=== PATIENT | male | born 1975 | race Two or more races ===

== ENCOUNTER 2019-11-04 19:08 | Inpatient (IN) | payer MEDICAID, OTHER ==
[~2019-11-04] VITALS: Ht 175.3 cm; Wt 143.0 kg
[2019-11-04 19:55] LABS: Alanine Aminotransferase 127 U/L (16-61); Anion Gap 3 (5-15); Aspartate Aminotransferase 64 U/L (15-37); BUN/Creatinine Ratio 9.3; Blood Urea Nitrogen 7 mg/dL (7-18); Calcium 7.8 mg/dL (8.5-10.1); Carbon Dioxide 33 mmol/L (21-32); Chloride 99 mmol/L (98-107); GFR African American 146 mL/min; GFR Non-African American 121 mL/min; Glucose 127 mg/dL (74-106); Potassium 4.2 mmol/L (3.5-5.1); Sodium 135 mmol/L (136-145)
[2019-11-04 20:00] LABS: Alkaline Phosphatase 83 U/L (45-117); Bilirubin, Total 0.5 mg/dL (0.2-1.0); Total Protein 7.2 g/dL (6.4-8.2)
[2019-11-04] MEDS ORDERED: IPRATROPIUM BROM 0.5 MG/2.5ML INH SOL NEB ONE (20:15)
[2019-11-04] MEDS ORDERED: ALBUTEROL SULF 2.5 MG/0.5ML(0.5%) NEB SOLN NEB ONE (20:15)
[2019-11-04 20:16] LABS: Basophils # (auto) 0.1 10 ^3/uL (0-0.2); Eosinophils # (auto) 0.1 10 ^3/uL (0-0.8); Lymphocytes # (auto) 1.5 10 ^3/uL (0.4-5.4); Mean Corpuscular Volume 86.3 fL (80.0-100.0); Monocytes # (auto) 1.2 10 ^3/uL (0-1.3)
[2019-11-04 20:18] LABS: Basophils % (auto) 0.6 % (0.0-2.0); Hematocrit 53.6 % (41.0-53.0); Hemoglobin 16.9 g/dL (13.5-17.5); Lymphocytes % (auto) 11.2 % (10.0-50.0); Mean Corpuscular Hemoglobin 27.2 pg (28.0-32.0); Mean Corpuscular Hgb Conc. 31.5 g/dL (32.0-36.0); Monocytes % (auto) 9.2 % (0.0-12.0); Neutrophils # (auto) 10.2 10 ^3/uL (1.6-8.6); Nucleated Red Blood Cells % 1.2 %; Platelet Count (auto) 229 10^3/uL (140-450); Red Blood Cells 6.21 10^6/uL (4.5-5.90); Red Cell Distribution Width 17.7 % (11.8-14.3); White Blood Cell 13.1 10^3/uL (4.4-10.8)
[2019-11-04] MEDS ORDERED: IPRATROPIUM BROM 0.5 MG/2.5ML INH SOL ONE (20:30)
[2019-11-04] MEDS ORDERED: ALBUTEROL SULF 2.5 MG/0.5ML(0.5%) NEB SOLN ONE (20:30)
[2019-11-04] MEDS ORDERED: cefTRIAXone 1GM/50ML D5W 50 ML IV ONE (21:30)
[2019-11-04] MEDS ORDERED: FUROSEMIDE 40 MG/4 ML VIAL IV ONE (21:45)
[2019-11-04] MEDS ORDERED: LORazepam 0.5 MG TAB PO PRN (22:45)
[2019-11-04] MEDS ORDERED: ACETAMINOPHEN 325 MG TAB PO PRN (22:45)
[2019-11-04] MEDS ORDERED: ACETAMINOPHEN 500 MG TAB PO PRN (22:45)
[2019-11-04] MEDS ORDERED: ONDANSETRON HCL 4 MG/2 ML VIAL IV PRN (22:45)
[2019-11-04] MEDS ORDERED: DOCUSATE SOD 100 MG CAP PO PRN (22:45)
[2019-11-04] MEDS ORDERED: TEMAZEPAM 15 MG CAP PO PRN (22:45)
[2019-11-04] MEDS ORDERED: ETOMIDATE (2MG/ML) 20ML VIAL IV ONE (23:47)
[2019-11-04] MEDS ORDERED: SUCCINYLCHOLINE CHLORIDE 20 MG/ML 10ML VIAL IV ONE (23:47)
[2019-11-05] VITALS (79 sets, daily range): BP systolic 105–147; BP diastolic 65–96
[2019-11-05] MEDS ORDERED: SUCCINYLCHOLINE CHLORIDE 20 MG/ML 10ML VIAL IV ONE (00:01)
[2019-11-05] MEDS ORDERED: MIDAZOLAM DRIP 50 mg/50mL 50 ML IV ONE (00:05)
[2019-11-05] MEDS ORDERED: PROPOFOL 100 ML IV ONE (00:14)
[2019-11-05] MEDS: MIDAZOLAM DRIP 50 mg/50mL 50 ML IV SCH ×6 (00:15→21:00)
[2019-11-05] MEDS: PROPOFOL 100 ML IV SCH ×6 (00:24→23:50)
[2019-11-05] MEDS: NOREPINEPHRINE 8 MG/250ML KIT 250 ML IV SCH ×2 (00:25→07:52)
[2019-11-05] MEDS ORDERED: ETOMIDATE (2MG/ML) 20ML VIAL IV ONE (00:30)
[2019-11-05] MEDS ORDERED: NOREPINEPHRINE 8 MG/250ML KIT 250 ML IV ONE (00:34)
[2019-11-05 03:06] LABS: Urine Bacteria NONE SEEN /hpf (None Seen); Urine Blood TRACE /uL (Negative); Urine Hyaline Cast MOD /lpf (0 - 2); Urine Mucus FEW (None Seen); Urine Specific Gravity 1.009 (1.001-1.035); Urine WBC 6 /hpf (0 - 3)
--- NOTE | 2019-11-05 03:20 | NUR ---
RECEIVED THIS PATIENT INTO ROOM 101 FROM ER. ETT TO VENTILATOR. PLACED IN COVID ISOLATION A RULE OUT. STREP WAS RULED IN. INFLUENZA NEGATIVE. OGT PLACED TO LIS. 400CC OF [place] GREEN LIQUID IN CONTAINER. BLOODY ORAL SECRETIONS. RECTAL TEMP PROBE PLACED. TEMPERATURE IMMEDIATELY WAS 100.8. SBP BEING SUPPORTED WITH LEVOPHED. SEDATION: VERSED AND PROPOFOL. PUPILS PINPOINT AND NR. LUNGS CLEAR BILATERALLY. ABDOMEN ROUND AND SOFT. GABRIEL IN PLACE AND EMPTIED 1150 CC PF HAZY URINE. NO BM. FACE AND CHEST HOT RED COLOR. LEFT BUTTOCK AND CREST ARE RED. NO WOUNDS NOTED. PROPHYLACTIC OPTIFOAM TO COCCYX. HAS 2 PERIPHERAL IVS. ONE IS 20 G IN THE RAC AND THERE IS A 18 G IN THE LEFT FOREARM. LEVOPHED IS RUNNING IN THE RIGHT IV.
--- NOTE | 2019-11-05 04:00 | NUR ---
LAB HERE TO DRAW BLOOD FOR AM [facility]
[2019-11-05 04:37] LABS: Basophils # (auto) 0.1 10 ^3/uL (0-0.2); Eosinophils # (auto) 0.1 10 ^3/uL (0-0.8); Hemoglobin 16.5 g/dL (13.5-17.5); Mean Corpuscular Hemoglobin 27.2 pg (28.0-32.0); Mean Corpuscular Hgb Conc. 31.6 g/dL (32.0-36.0); Monocytes # (auto) 1.3 10 ^3/uL (0-1.3); White Blood Cell 12.6 10^3/uL (4.4-10.8)
[2019-11-05 04:39] LABS: Eosinophils % (auto) 1.1 % (0.0-7.0); Hematocrit 52.3 % (41.0-53.0); Lymphocytes # (auto) 1.4 10 ^3/uL (0.4-5.4); Lymphocytes % (auto) 11.3 % (10.0-50.0); Mean Corpuscular Volume 86.1 fL (80.0-100.0); Monocytes % (auto) 10.6 % (0.0-12.0); Neutrophils # (auto) 9.6 10 ^3/uL (1.6-8.6); Nucleated Red Blood Cells % 0.7 %; Platelet Count (auto) 226 10^3/uL (140-450); Red Blood Cells 6.07 10^6/uL (4.5-5.90); Red Cell Distribution Width 17.3 % (11.8-14.3)
[2019-11-05 04:47] LABS: Albumin 2.7 g/dL (3.4-5.0); Potassium 3.9 mmol/L (3.5-5.1)
[2019-11-05 04:51] LABS: BUN/Creatinine Ratio 9.9; Calcium 7.9 mg/dL (8.5-10.1)
[2019-11-05 04:53] LABS: Bilirubin, Total 0.6 mg/dL (0.2-1.0); Total Protein 6.7 g/dL (6.4-8.2)
[2019-11-05] MEDS: ALBUTEROL SULF 2.5 MG/0.5ML(0.5%) NEB SOLN NEB SCH ×3 (05:48→22:10)
[2019-11-05] MEDS: ACETAMINOPHEN 650 mg PER 20 mL UD GT PRN (05:54)
[2019-11-05] MEDS ORDERED: ALBUTEROL SULF HFA 90MCG INH 200DOSE IN SCH (06:00)
--- NOTE | 2019-11-05 06:06 | NUR ---
TEMP 101.5. TYLENOL GIVEN. 5 ICE BAGS, BACK OF NECK, AXILLA, AND GROIN.. O2 SAT DECREASED TO 88%. FIO2 INCREASED TO 40%
--- NOTE | 2019-11-05 06:27 | NUR ---
SPOKE TO THE SISTER. HE TAKES NO MEDICATIONS. HAS DRUG ABUSE WITH METH AND MARIJUANA. DOES DRINK. DID COME IN CONTACT WITH SOMEONE WITH COVID. HAS A LIVING FATHER BUT HE IS IN THE HOSPITAL. STATED THAT HE HAS NOT SEEN A DOCTOR IN YEARS.
--- NOTE | 2019-11-05 07:21 | NUR ---
REPORT RECEIVED FROM PSYCHOLOGIST SOCIAL RN
--- NOTE | 2019-11-05 08:01 | NUR ---
ELEVATED TEMPERATURE COOLING MEASURES IN PLACE
--- NOTE | 2019-11-05 09:00 | NUR ---
SEDATION VACATION HELD AT THIS TIME Addendum: 11/05/19 at 0914 by Jorden Tucker RN Amended: Links added.
--- NOTE | 2019-11-05 09:41 | NUR ---
OGT ADVANCED 8 CM
[2019-11-05] MEDS: ASCORBIC ACID 1,000 MG TAB PO SCH (09:47)
[2019-11-05] MEDS: ZINC SULFATE 220mg CAP or TAB PO SCH (09:47)
[2019-11-05] MEDS: CHOLECALCIFEROL (VITD3) 1,000UNIT=25mCg TAB PO SCH (09:47)
[2019-11-05] MEDS: ENOXAPARIN SOD 40 MG/0.4 ML SYRINGE SC SCH (09:48)
[2019-11-05] MEDS ORDERED: DOXYCYCLINE 100 MG TAB/CAP PO SCH ×2 (10:00→11:15)
[2019-11-05] MEDS ORDERED: DOXYCYCLINE 100MG/250ML 250 ML IV SCH (10:00)
--- NOTE | 2019-11-05 10:28 | NUR ---
DR. CROWDER PAGED AWAITING CALLBACK
[2019-11-05] MEDS ORDERED: VANCOMYCIN 1GM/250ML 250 ML IV ONE (11:30)
[2019-11-05] MEDS: PIPERACILLIN-TAZO 4.5GM 100 ML IV SCH ×2 (13:45→22:13)
[2019-11-05] MEDS ORDERED: SODIUM CHLORIDE 0.9% 1,000 ML IV SCH (14:30)
--- NOTE | 2019-11-05 16:00 | NUR ---
PEEP INCREASED TO [address] ROJAS.
[2019-11-05] MEDS ORDERED: FUROSEMIDE 40 MG/4 ML VIAL ONE (16:05)
--- NOTE | 2019-11-05 16:14 | NUR ---
LASIX GIVEN ORDERED
[2019-11-05] MEDS ORDERED: FUROSEMIDE 40 MG/4 ML VIAL IV ONE (16:15)
[2019-11-05] MEDS ORDERED: VANCOMYCIN PER PHARMACY 0 MG IV SCH (16:45)
[2019-11-05] MEDS ORDERED: FUROSEMIDE 20 MG/2 ML VIAL IV ONE (16:45)
--- NOTE | 2019-11-05 17:46 | NUR ---
ULTRASOUND AT BEDSIDE
[2019-11-05] MEDS: VANCOMYCIN 1GM/250ML 250 ML IV SCH (17:52)
[2019-11-05] MEDS: IPRATROPIUM BROM 0.5 MG/2.5ML INH SOL NEB SCH ×2 (18:12→22:10)
--- NOTE | 2019-11-05 20:00 | NUR ---
MD DIAGNOSIS: COPD EXACERBATION. MRSA +. STREP+. COVID NEGATIVE. NO ISOLATION. FEBRILE. FAN ON. SISTER CALLS. + GAG AND COUGH. NOTHING SUCTIONED FROM THE ETT. LARGE AMOUNT OF ORAL SECRETIONS. NGT OUTPUT IS [place] GREEN. LEVEL IS AT 100 ON THE CANNISTER. LUNGS CLEAR. LEFT LOWER LUNG DIMINISHED. ABDOMEN ROUND, LARGE, OBESE, AND SOFT. GABRIEL IN PLACE DRAINING CLEAR YELLOW LIQUID TO DOWN DRAIN BAG. HAS 3 PERIPHERAL IVS. NEW LIJ TLC PLACED TODAY. SEDATION: PROPOFOL AND VERSED. LEVOPHED OFF ON DAYSHIFT. SBP SUSTAINING. OGT TO LIS. ORAL CARE. PATIENT REPOSITIONED TO HIS LEFT SIDE.
[2019-11-05] MEDS ORDERED: ATORVASTATIN 20 MG TAB PO SCH (22:00)
--- NOTE | 2019-11-05 22:00 | NUR ---
NOTHING SUCTIONED FROM THE ETT. LARGE AMOUNT OF ORAL SECRETIONS. CONTINUOUS GOLD COLOR LIQUID FROM THE NGT. ALL PULSES PALPABLE. 1+ GENERALIZED EDEMA. NSR WITHOUT ECTOPY. LUNGS CLEAR. USING THE [facility] TLC FOR DIPRIVAN AND VERSED. TEMP 100.2
[2019-11-05] MEDS: MUPIROCIN 2% OINT 15gm or 22gm EACHNOSTRI SCH (22:12)
[2019-11-05] MEDS: CARVEDILOL 3.125 MG TAB PO SCH (22:15)
[2019-11-06] VITALS (100 sets, daily range): BP systolic 95–149; BP diastolic 55–104
--- NOTE | 2019-11-06 | NUR ---
TEMP IS NORMAL. SBP REMAINS GOOD OFF LEVOPHED AND WITH THE COREG DOSE. LUNGS CLEAR. ETT TO VENTILATOR. NGT OUTPUT DECREASING, COLOR REMAINS GOLD. NSR WITHOUT ECTOPY.
[2019-11-06] MEDS: VANCOMYCIN 1GM/250ML 250 ML IV SCH ×4 (00:04→18:38)
[2019-11-06] MEDS: MIDAZOLAM DRIP 50 mg/50mL 50 ML IV SCH ×5 (01:49→19:40)
--- NOTE | 2019-11-06 02:00 | NUR ---
NO CHANGE IN ASSESSMENT. CONTINUING TO GET LARGE AMOUNT OF ORAL SECRETIONS. NGT IS DRAINING ABOUT 200CC/H.
[2019-11-06] MEDS: IPRATROPIUM BROM 0.5 MG/2.5ML INH SOL NEB SCH ×6 (02:10→22:09)
--- NOTE | 2019-11-06 03:05 | NUR ---
UNABLE TO DO CT OF CHEST DUE TO THE PARAMETERS CT DEPARTMENT GAVE ME SO THAT HE CAN FIT IN THE SCANNER WEIGHT LIMIT IS 350 LBS. PT IS 349.8 LBS
--- NOTE | 2019-11-06 04:00 | NUR ---
PROPOFOL TUBING CHANGE. CHG BATH. HE WOKE UP , TRIED TO SIT UP, MOVING ALL EXTREMITIES IN AN ANXIOUS MANNER. INCREASED THE VERSED AND PROPOFOL. HE THEN CALMED DOWN. PARTIAL LINEN CHANGE.
[2019-11-06 04:47] LABS: Basophils # (auto) 0.1 10 ^3/uL (0-0.2); Basophils % (auto) 0.7 % (0.0-2.0); Eosinophils # (auto) 0.1 10 ^3/uL (0-0.8); Eosinophils % (auto) 1.2 % (0.0-7.0); Hematocrit 53.2 % (41.0-53.0); Hemoglobin 17.2 g/dL (13.5-17.5); Lymphocytes # (auto) 1.3 10 ^3/uL (0.4-5.4); Lymphocytes % (auto) 12.1 % (10.0-50.0); Mean Corpuscular Hemoglobin 27.2 pg (28.0-32.0); Mean Corpuscular Hgb Conc. 32.4 g/dL (32.0-36.0); Monocytes % (auto) 9.3 % (0.0-12.0); Neutrophils # (auto) 8.6 10 ^3/uL (1.6-8.6); Neutrophils % (auto) 76.7 % (37.0-80.0); Nucleated Red Blood Cells % 0.8 %; Platelet Count (auto) 191 10^3/uL (140-450); Red Blood Cells 6.33 10^6/uL (4.5-5.90); Red Cell Distribution Width 17.4 % (11.8-14.3); White Blood Cell 11.2 10^3/uL (4.4-10.8)
[2019-11-06 05:00] LABS: INR 1.09 (0.9-1.15); Partial Thromboplastin Time 25.1 sec (23.64-32.05)
[2019-11-06 05:07] LABS: Magnesium 2.1 mg/dL (1.6-2.6)
[2019-11-06 05:15] LABS: Cholesterol 153 mg/dL (< 200); HDL Cholesterol 31 mg/dL (40-59); LDL Cholesterol 95 mg/dL (< 100); Phosphorus 4.2 mg/dL (2.5-4.90); Triglycerides 330 mg/dL (< 150); Uric Acid 5.7 mg/dL (3.5-7.2)
[2019-11-06] MEDS: FUROSEMIDE 20 MG/2 ML VIAL IV SCH ×2 (05:25→18:38)
[2019-11-06] MEDS: PROPOFOL 100 ML IV SCH ×7 (05:30→22:30)
[2019-11-06] MEDS: ALBUTEROL SULF 2.5 MG/0.5ML(0.5%) NEB SOLN NEB SCH ×3 (05:58→22:09)
--- NOTE | 2019-11-06 06:00 | NUR ---
VSS. QUIETLY SEDATED. LUNGS CLEAR. SUCTIONED A SMALL AMOUNT OF WHITE SECRETIONS. LOTS OF ORAL SECRETIONS. RT IN ROOM. FIO2 DECREASED TO 75%
[2019-11-06] MEDS: PIPERACILLIN-TAZO 4.5GM 100 ML IV SCH ×3 (06:26→21:57)
--- NOTE | 2019-11-06 07:00 | NUR ---
REPORT RECEIVED FROM PAPER WOOD CUTTER NURSE. PATIENT RESTING IN BED INTUBATED AND SEDATED. RESPIRATIONS EVEN AND UNLABORED. NO SIGNS OF ACUTE DISTRESS NOTED. BED IN LOW POSITION. WILL CONTINUE TO MONITOR.
[2019-11-06 08:30] LABS: Albumin 2.6 g/dL (3.4-5.0); Calcium 8.4 mg/dL (8.5-10.1); Potassium 3.1 mmol/L (3.5-5.1)
[2019-11-06 08:32] LABS: BUN/Creatinine Ratio 16.3; Bilirubin, Total 0.7 mg/dL (0.2-1.0); Total Protein 6.9 g/dL (6.4-8.2)
[2019-11-06] MEDS: CARVEDILOL 3.125 MG TAB PO SCH (10:00)
[2019-11-06] MEDS: CHOLECALCIFEROL (VITD3) 1,000UNIT=25mCg TAB PO SCH (10:00)
[2019-11-06] MEDS ORDERED: ASPirin 81 mg TAB PO SCH (10:00)
[2019-11-06] MEDS: ASCORBIC ACID 1,000 MG TAB PO SCH (10:00)
[2019-11-06] MEDS: ZINC SULFATE 220mg CAP or TAB PO SCH (10:00)
[2019-11-06] MEDS ORDERED: LISINOPRIL 5 MG TAB PO SCH (10:00)
[2019-11-06] MEDS: ENOXAPARIN SOD 40 MG/0.4 ML SYRINGE SC SCH (10:35)
[2019-11-06] MEDS: MUPIROCIN 2% OINT 15gm or 22gm EACHNOSTRI SCH ×2 (10:35→21:58)
--- NOTE | 2019-11-06 12:22 | NUR ---
DR ROJAS AT BEDSIDE TO ASSESS PATIENT AND DISCUSS PLAN OF CARE. MD MADE AWARE THAT PATIENT POTASSIUM 3.1. PER MD ADMINISTER 80MEQ OF POTASSIUM IVPB. ALL ORDERS NOTED IN CHART. MD AWARE PATIENT HAS NOT GONE TO CT DUE TO HIGH FIO2 AND PEEP. ALL ORDERS NOTED IN CHART.
[2019-11-06] MEDS ORDERED: FUROSEMIDE 40 MG/4 ML VIAL IV ONE (12:30)
[2019-11-06] MEDS: POTASSIUM CHL 20MEQ/100ML 100 ML IV SCH ×4 (12:43→18:38)
--- NOTE | 2019-11-06 14:42 | NUR ---
CONSENT OBTAINED FOR CTA FROM PATIENTS SISTER MOISES VIA TELEPHONE WITH DOUBLE NURSE CONSENT.
--- NOTE | 2019-11-06 15:45 | NUR ---
DR Luana CANALES AT BEDSIDE TO ASSESS PATIENT AND DISCUSS PLAN OF CARE. ALL ORDERS NOTED IN CHART. MD MADE AWARE THAT ALL PO MEDICATIONS WERE HELD THIS MORNING DUE TO HIGH OUTPUT FROM NGT. PER MD DC ALL PO MEDICATIONS AT THIS TIME.
--- NOTE | 2019-11-06 19:12 | NUR ---
Respiratory note: AT BEDSIDE TITRATED FIO2 STEADILY TO 60% PT TOLERATING WELL. POX 98-100%. WILL CONTINUE TO TITRATE TOLERATED. COMMUNICATED O2 CHANGES TO ROSE MCARTHUR.
[2019-11-06] MEDS ORDERED: FUROSEMIDE 20 MG/2 ML VIAL IV SCH (19:15)
--- NOTE | 2019-11-06 19:59 | NUR ---
Respiratory note: At bedside for routine vent check. Fio2 titrated to 55%. Pt tolerating change well. Communicated to RN Lizbeth of o2 change. Pts current temp reads 99.5f. Will continue to monitor.
--- NOTE | 2019-11-06 20:00 | NUR ---
ADMITTED WITH COPD EXACERBATION. SEDATION: VERSED, PROPOFOL. LIJ TLC SHOWS NO REDNESS, SWELLING OR DRNG. PUPILS PINPOINT. CTA CONSENT DONE. PATIENT BECOMES UNSTABLE WHEN TURNED. HE IS 349 LBS AND LARGER THAN THE ALOTTED SIZE FOR THE CT BED. ETT TO VENTILATOR. OGT TO LIS DRAINING A GOLD/BILE COLOR LIQUID. ANTIBIOTICS: ZOSYN AND VANCOMYCIN. +MRSA BEING TREATED WITH BACTROBAN (NARES). GABRIEL IN PLACE DRAINING A GOOD AMOUNT OF CLEAR YELLOW LIQUID TO DOWN DRAIN BAG. NO FEVER RIGHT NOW. LARGE AMOUNT OF ORAL SECRETIONS. ORAL CARE DONE.
--- NOTE | 2019-11-06 21:59 | NUR ---
Respiratory note: AT BEDSIDE FOR ROUTINE VENT CHECK. CURRENT TEMP IS 99.0F. BS ARE FINE COURSE SXD VIA ETT FOR SCANT STONE. RN URBAN AT BEDSIDE.
--- NOTE | 2019-11-06 22:00 | NUR ---
REPOSITIONED TO RIGHT SIDE WITHOUT CHANGE IN VITAL SIGNS. ORAL CARE DONE. LARGE AMOUNT OF ORAL SECRETIONS. NOTHING SUCTIONED FROM THE ETT. VSS. GOOD URINE OUTPUT. NO FEVER. QUIETLY RESTING. + COUGH AND GAG.
[2019-11-06] MEDS: ACETYLCYSTEINE 20%(200MG/ML) SOL 4ML NEB SCH (22:09)
[2019-11-07] VITALS (105 sets, daily range): BP systolic 98–141; BP diastolic 51–100
--- NOTE | 2019-11-07 | NUR ---
PLACED ON BACK. COPIOUS ORAL SECRETIONS. SMALL AMOUNT OF CREAMY FROM THE LUNGS. TOLERATED TURNING. NSR WITHOUT ECTOPY.
--- NOTE | 2019-11-07 00:08 | NUR ---
Respiratory note: AT BEDSIDE FOR ROUTINE VENT CHECK. CURRENT TEMP IS 98.8F. NO CHANGES MADE WILL CONTINUE TO BEDSIDE.
[2019-11-07] MEDS: VANCOMYCIN 1GM/250ML 250 ML IV SCH ×4 (00:23→18:10)
[2019-11-07] MEDS: NOREPINEPHRINE 8 MG/250ML KIT 250 ML IV SCH (00:24)
[2019-11-07] MEDS: PROPOFOL 100 ML IV SCH ×6 (00:24→19:52)
[2019-11-07] MEDS: MIDAZOLAM DRIP 50 mg/50mL 50 ML IV SCH ×2 (00:25→19:14)
--- NOTE | 2019-11-07 02:00 | NUR ---
NOTICED THE O2 SAT WAS 91-92%. RT INCREASED THE FIO2.
[2019-11-07] MEDS: IPRATROPIUM BROM 0.5 MG/2.5ML INH SOL NEB SCH ×6 (02:16→21:45)
--- NOTE | 2019-11-07 02:16 | NUR ---
Respiratory note: AT BEDSIDE FOR ROUTINE VENT CHECK. BS ARE FINE COURSE SXD SCANT WHITE/CLEAR. MED NEB TX GIVEN INLINE VIA AEROGEN, NO ADVERSE REACTION NOTED. CURRENT TEMP IS 99.0F. NO CHANGES MADE WILL CONTINUE TO BEDSIDE.
--- NOTE | 2019-11-07 02:36 | NUR ---
FIO2 INCREASED TO 70% DUE TO DESATURATION. WILL ATTEMPT TO DECREASE TOLERATED. ROSE DUGGAN AWARE.
--- NOTE | 2019-11-07 04:00 | NUR ---
CHG BATH . PAD CHANGE. SCDS OFF AND THEN PUT BACK ONL.
[2019-11-07 04:18] LABS: Basophils # (auto) 0.1 10 ^3/uL (0-0.2); Eosinophils # (auto) 0.2 10 ^3/uL (0-0.8); Hematocrit 51.6 % (41.0-53.0); Lymphocytes # (auto) 1.2 10 ^3/uL (0.4-5.4); Monocytes # (auto) 0.7 10 ^3/uL (0-1.3); Neutrophils # (auto) 6.8 10 ^3/uL (1.6-8.6); Nucleated Red Blood Cells % 0.1 %
[2019-11-07 04:20] LABS: Basophils % (auto) 0.9 % (0.0-2.0); Eosinophils % (auto) 2.7 % (0.0-7.0); Lymphocytes % (auto) 13.4 % (10.0-50.0); Mean Corpuscular Hemoglobin 27.3 pg (28.0-32.0); Mean Corpuscular Volume 82.7 fL (80.0-100.0); Monocytes % (auto) 7.9 % (0.0-12.0); Neutrophils % (auto) 75.1 % (37.0-80.0); Platelet Count (auto) 199 10^3/uL (140-450); Red Blood Cells 6.24 10^6/uL (4.5-5.90); Red Cell Distribution Width 17.2 % (11.8-14.3); White Blood Cell 9.1 10^3/uL (4.4-10.8)
--- NOTE | 2019-11-07 04:24 | NUR ---
Respiratory note: END OF SHIFT VENT CHECK DONE. CURRENT TEMP READS 99.3F. NO CHANGES MADE WILL HAVE DAY SHIFT CONTINUE POC.
[2019-11-07 04:29] LABS: BUN/Creatinine Ratio 18.4; Calcium 8.4 mg/dL (8.5-10.1); Potassium 3.3 mmol/L (3.5-5.1)
[2019-11-07] MEDS: ACETYLCYSTEINE 20%(200MG/ML) SOL 4ML NEB SCH ×3 (05:55→21:45)
[2019-11-07] MEDS: ALBUTEROL SULF 2.5 MG/0.5ML(0.5%) NEB SOLN NEB SCH ×3 (05:55→21:45)
[2019-11-07] MEDS ORDERED: FUROSEMIDE 20 MG/2 ML VIAL IV SCH (06:00)
[2019-11-07] MEDS: PIPERACILLIN-TAZO 4.5GM 100 ML IV SCH ×3 (06:00→22:09)
--- NOTE | 2019-11-07 07:00 | NUR ---
REPORT RECEIVED FROM HEALTHCARE SOCIAL WORKER NURSE. PATIENT RESTING IN BED INTUBATED AND SEDATED. RESPIRATIONS EVEN AND UNLABORED. NO SIGNS OF ACUTE DISTRESS NOTED. BED IN LOW POSITION. WILL CONTINUE TO MONITOR.
--- NOTE | 2019-11-07 09:34 | NUR ---
LEFT MESSAGE FOR DR Luana CANALES FOR POTASSIUM LEVEL OF 3.3 AWAITING CALL BACK.
--- NOTE | 2019-11-07 10:00 | NUR ---
DENTURES LAB TECHNICIAN AT BEDSIDE
[2019-11-07] MEDS: ENOXAPARIN SOD 40 MG/0.4 ML SYRINGE SC SCH (10:04)
[2019-11-07] MEDS: MUPIROCIN 2% OINT 15gm or 22gm EACHNOSTRI SCH ×2 (10:04→22:10)
--- NOTE | 2019-11-07 10:10 | NUR ---
Respiratory note: ROUTINE VENT CHECK DONE.VENT CHANGES MADE. INCREASED PEEP TO 12 PER ORDERS. ABG TO BE DONE IN 1 HOUR. RN AWARE OF CHANGES.
--- NOTE | 2019-11-07 12:53 | NUR ---
DR MEDRANO AT BEDSIDE TO ASSESS PATIENT AND DISCUSS PLAN OF CARE. PER MD INCREASE LASIX TO 40MG BIV IVP. ALL ORDERS NOTED IN CHART.
[2019-11-07] MEDS: POTASSIUM CHL 20MEQ/100ML 100 ML IV SCH ×2 (13:25→16:05)
--- NOTE | 2019-11-07 14:40 | NUR ---
DR CANALES AT BEDSIDE TO ASSESS PATIENT AND DISCUSS PLAN OF CARE. MD MADE AWARE OF INCREASE IN LASIX DOSAGE. PER MD PLACE COMMUNICATION FOR POTASSIUM REPLACEMENT. ALL ORDERS NOTED IN CHART.
[2019-11-07] MEDS: FUROSEMIDE 40 MG/4 ML VIAL IV SCH (18:10)
--- NOTE | 2019-11-07 19:16 | NUR ---
DR ROJAS AT BEDSIDE TO ASSESS PATIENT AND DISCUSS PLAN OF CARE. NO NEW ORDERS AT THIS TIME.
--- NOTE | 2019-11-07 21:35 | NUR ---
SEDATION VACATION PROPOFOL WAS OFF FOR 35 MINUTES. NOW PATIENT IS RESTLESS AND COUGHING. PROPOFOL RESTARTED AT 35 MCG/KG/MIN.
[2019-11-08] VITALS (98 sets, daily range): BP systolic 101–152; BP diastolic 62–105
[2019-11-08] MEDS: PROPOFOL 100 ML IV SCH ×8 (00:07→23:38)
[2019-11-08] MEDS: VANCOMYCIN 1GM/250ML 250 ML IV SCH ×4 (00:14→17:43)
[2019-11-08] MEDS: MIDAZOLAM DRIP 50 mg/50mL 50 ML IV SCH ×4 (00:16→19:56)
[2019-11-08] MEDS: NOREPINEPHRINE 8 MG/250ML KIT 250 ML IV SCH (00:24)
[2019-11-08] MEDS ORDERED: POTASSIUM CHL 20MEQ/100ML 100 ML IV ONE ×2 (02:00→02:03)
[2019-11-08] MEDS: IPRATROPIUM BROM 0.5 MG/2.5ML INH SOL NEB SCH ×6 (02:16→22:02)
--- NOTE | 2019-11-08 03:00 | NUR ---
Central Line Dressing Changes Lt.IJ Central line dressing change done with a sterile technique. Cleansed with chloraprep scrub/betadine. bio-patch applied. Occlusive dressing applied.
[2019-11-08] MEDS: FUROSEMIDE 40 MG/4 ML VIAL IV SCH ×2 (05:35→17:45)
[2019-11-08] MEDS: PIPERACILLIN-TAZO 4.5GM 100 ML IV SCH ×3 (05:37→22:15)
[2019-11-08] MEDS: ALBUTEROL SULF 2.5 MG/0.5ML(0.5%) NEB SOLN NEB SCH ×3 (05:56→22:02)
[2019-11-08] MEDS: ACETYLCYSTEINE 20%(200MG/ML) SOL 4ML NEB SCH ×3 (05:56→22:02)
[2019-11-08 06:21] LABS: Basophils # (auto) 0.1 10 ^3/uL (0-0.2); Basophils % (auto) 0.5 % (0.0-2.0); Eosinophils # (auto) 0.3 10 ^3/uL (0-0.8); Eosinophils % (auto) 2.3 % (0.0-7.0); Lymphocytes # (auto) 0.9 10 ^3/uL (0.4-5.4); Monocytes # (auto) 1.1 10 ^3/uL (0-1.3); Neutrophils # (auto) 9.2 10 ^3/uL (1.6-8.6)
[2019-11-08 06:23] LABS: Hematocrit 53.8 % (41.0-53.0); Hemoglobin 17.3 g/dL (13.5-17.5); Lymphocytes % (auto) 7.9 % (10.0-50.0); Mean Corpuscular Hemoglobin 26.9 pg (28.0-32.0); Mean Corpuscular Hgb Conc. 32.2 g/dL (32.0-36.0); Mean Corpuscular Volume 83.6 fL (80.0-100.0); Monocytes % (auto) 9.4 % (0.0-12.0); Neutrophils % (auto) 79.9 % (37.0-80.0); Nucleated Red Blood Cells % 0.1 %; Platelet Count (auto) 193 10^3/uL (140-450); Red Blood Cells 6.43 10^6/uL (4.5-5.90); Red Cell Distribution Width 17.6 % (11.8-14.3); White Blood Cell 11.5 10^3/uL (4.4-10.8)
[2019-11-08 06:24] LABS: INR 1.06 (0.9-1.15); Partial Thromboplastin Time 21.1 sec (23.64-32.05)
[2019-11-08 06:34] LABS: Potassium 3.5 mmol/L (3.5-5.1)
[2019-11-08 06:51] LABS: Albumin 2.8 g/dL (3.4-5.0); Bilirubin, Direct 0.4 mg/dL (0-0.2); Bilirubin, Total 1.1 mg/dL (0.2-1.0); Calcium 8.6 mg/dL (8.5-10.1); Magnesium 2.4 mg/dL (1.6-2.6); Total Protein 7.8 g/dL (6.4-8.2)
[2019-11-08] MEDS: MUPIROCIN 2% OINT 15gm or 22gm EACHNOSTRI SCH ×2 (10:15→22:14)
[2019-11-08] MEDS: ENOXAPARIN SOD 40 MG/0.4 ML SYRINGE SC SCH (10:16)
--- NOTE | 2019-11-08 11:20 | NUR ---
SISTER NAEEM CALLED FOR UPDATE; CALL THEN TRANSFERRED TO SARA DE LEÓN REQUESTED.
--- NOTE | 2019-11-08 11:54 | NUR ---
PLAN FOR TRANSPORT FOR CT CHEST DISCUSSED WITH RADIOLOGY NURSE. WILL BE DONE TODAY
--- NOTE | 2019-11-08 12:12 | NUR ---
Nutrition Assessment Notes Please refer to link for full assessment notes. Est Energy needs: 7577-6267 kcals (12-15 kcal/kgBW) Est Protein needs: 145-182 gms/day (2.0-2.5 gm/kgIBW) d/t pt adiposity Will continue to monitor and reassess prn. Addendum: 11/08/19 at [address] Amended: Links added.
[2019-11-08] MEDS ORDERED: IOHEXOL 350 MG/ML 100ML IJ ONE (14:24)
--- NOTE | 2019-11-08 14:25 | NUR ---
TO RADIOLOGY VIA BED PER ACLS, WITH 2 RN, 1 RT, PSR. DR. ROJAS HERE AND AWARE OF PENDING TEST.
--- NOTE | 2019-11-08 14:50 | NUR ---
RETURNED TO BED 101 FROM RADIOLOGY. PT BERTHA FAIR. PER RT, PT DESATURATED TO 85%. FIO2 INCREASED TO 60%. DIPRIVAN INCREASED PER RN TO 35MCG.
--- NOTE | 2019-11-08 14:54 | NUR ---
assessment Patient is a 44 year old male who is alert and oriented. Per patients sister Elle prior to admission patient lived home with family and was independent. Patient had no need for DME. Per Elle patient does not see any doctors for many years. Elle informed me patient was having shortness of breath for the past 2 months and was progressively getting worse until patient called 911 and was brought to the ER and admitted for Sepsis and respiratory failure. I informed Elle patients post discharge needs to be determined prior to discharge and after extubation. Elle verbalized understanding. Addendum: 11/08/19 at 1457 by Shilpa MARLEY Amended: Links added.
--- NOTE | 2019-11-08 14:55 | NUR ---
RT Transport Note: Patient transported to RADIOLOGY with ROSE Rebolledo and ROSE Hill. Patient transported on transport vent and surveillance monitor with alarms set and audible. Patient returned to room with no adverse reaction noted. Transport completed without incident.
--- NOTE | 2019-11-08 17:05 | NUR ---
WOUND CARE NOTE: Added patient to wound care monitoring list due to low Dominic score of 10 and intubation status, putting patient to high risk for skin breakdown. Patient is 44 years old male with admitting diagnosis of CoVid R/O, Pos Acute CHF. Patient is resting in ICU bed in Rm. 101. Patient is intubated, and mechanically ventilated. Patient appears to be in no pain using Ge Sanz Faces Pain Scale. Patient is wound free , no pressure injury per per RN Whitney. He's receiving BID/PRN cleaning and application of Barrier cream to sacral, buttocks with preventative Opti foam sacral dressing. RECOMMENDATION: Nursing to continue with BID/PRN cleaning and application of Barrier cream to sacral, buttocks as preventative, Dietary consult, frequent turning and repositioning schedule as condition permits, redistribute pressure points with pillows, elevate heels on pillows, continue monitoring by wound care while patient is intubated.
--- NOTE | 2019-11-08 18:00 | NUR ---
MED WITH TYLENOL FOR TEMP 101.5
[2019-11-08] MEDS: ACETAMINOPHEN 650 mg PER 20 mL UD GT PRN (18:05)
--- NOTE | 2019-11-08 18:08 | NUR ---
RT NOTE RECEIVED PT INTUBATED AND ON VENT V6 ON STATED SETTINGS WITH HEATED WIRE CIRCUIT. VENT IS PLUGGED TO RED OUTLET. ALARMS ARE ON AND AUDIBLE TO NURSING. AMBU BAG AT BEDSIDE AND CONNECTED TO O2 SOURCE. 8.0 ETT IS SECURED AT 26 CM TO THE ORAL RIGHT. BILATERAL BS ARE COARSE/DIM. PT SUCTIONED FOR LARGE RETURN FROM ETT AND MODERATE ORALLY. WATER LEVEL IS ADEQUATE. HHN IS GIVEN IN INLINE WITH 0.5 MG ATROVENT WITH AEROGEN. NO ADVERSE REACTION NOTED. CONT ORDERED. POX 90% Addendum: 11/08/19 at 1819 by Sophia Green RT Amended: Links added.
--- NOTE | 2019-11-08 20:03 | NUR ---
RT NOTE ROUTINE VENT CHECK DONE. PT INTUBATED AND ON VENT V6 ON STATED SETTINGS WITH HEATED WIRE CIRCUIT. VENT IS PLUGGED TO RED OUTLET. ALARMS ARE ON AND AUDIBLE TO NURSING. AMBU BAG AT BEDSIDE AND CONNECTED TO O2 SOURCE. 8.0 ETT IS SECURED WITH ANCHORFAST AT 26 CM TO THE ORAL RIGHT. WATER LEVEL IS ADEQUATE. CONT ORDERED. PT TEMP 101.7, CIRCUIT TEMP 34.9, POX 92% Addendum: 11/08/19 at 2006 by Sophia Green RT Amended: Links added.
--- NOTE | 2019-11-08 21:00 | NUR ---
SEDATION VACATION HELD PATIENT IS ON LIGHT SEDATION. OPEN EYES SPONTANEOUSLY, MOVES EXTREMITIES AND TRYING TO REACH ETT. SEDATION INCREASED . VERSED AT 10MG/HR.
--- NOTE | 2019-11-08 22:04 | NUR ---
RT NOTE ROUTINE VENT CHECK DONE. PT INTUBATED AND ON VENT V6 ON STATED SETTINGS WITH HEATED WIRE CIRCUIT. VENT IS PLUGGED TO RED OUTLET. ALARMS ARE ON AND AUDIBLE TO NURSING. AMBU BAG AT BEDSIDE AND CONNECTED TO O2 SOURCE. 8.0 ETT IS SECURED WITH ANCHORFAST AT 26 CM TO THE ORAL RIGHT. HHN GIVEN INLINE WITH 2.5 MG ALBUTEROL, 0.5 MG ATROVENT AND 1 CC 20% MUCOMYST VIA AEROGEN. NO ADVERSE REACTION NOTED. BS ARE COARSE. PT WAS SUCTIONED FOR LARGE RETURN FROM ETT AND ORALLY. WATER LEVEL IS ADEQUATE. CONT ORDERED. PT TEMP 101.5 AND PT IS ON COOLING MEASURES, CIRCUIT TEMP 34.6, POX 92% Addendum: 11/08/19 at 2211 by Sophia Green RT Amended: Links added.
[2019-11-09] VITALS (103 sets, daily range): BP systolic 98–148; BP diastolic 47–104
--- NOTE | 2019-11-09 | NUR ---
RT NOTE ROUTINE VENT CHECK DONE. PT INTUBATED AND ON VENT V6 ON STATED SETTINGS WITH HEATED WIRE CIRCUIT. VENT IS PLUGGED TO RED OUTLET. ALARMS ARE ON AND AUDIBLE TO NURSING. AMBU BAG AT BEDSIDE AND CONNECTED TO O2 SOURCE. 8.0 ETT IS SECURED WITH ANCHORFAST AT 26 CM TO THE ORAL LEFT. WATER LEVEL IS ADEQUATE. CONT ORDERED. PT TEMP 100.8 AND PT IS ON COOLING MEASURES, CIRCUIT TEMP 34.9, POX 94% Addendum: 11/09/19 at 0001 by Sophia Green RT Amended: Links added.
[2019-11-09] MEDS: VANCOMYCIN 1GM/250ML 250 ML IV SCH ×2 (00:22→05:54)
[2019-11-09] MEDS: NOREPINEPHRINE 8 MG/250ML KIT 250 ML IV SCH (00:24)
[2019-11-09] MEDS: PROPOFOL 100 ML IV SCH ×6 (01:57→16:30)
[2019-11-09] MEDS: MIDAZOLAM DRIP 50 mg/50mL 50 ML IV SCH ×3 (02:01→14:11)
[2019-11-09] MEDS: IPRATROPIUM BROM 0.5 MG/2.5ML INH SOL NEB SCH ×6 (02:04→22:04)
--- NOTE | 2019-11-09 02:05 | NUR ---
RT NOTE ROUTINE VENT CHECK DONE. PT INTUBATED AND ON VENT V6 ON STATED SETTINGS WITH HEATED WIRE CIRCUIT. VENT IS PLUGGED TO RED OUTLET. ALARMS ARE ON AND AUDIBLE TO NURSING. AMBU BAG AT BEDSIDE AND CONNECTED TO O2 SOURCE. 8.0 ETT IS SECURED WITH ANCHORFAST AT 26 CM TO THE ORAL LEFT.WATER LEVEL IS ADEQUATE. BILATERAL BS ARE COARSE. HHN GIVEN INLINE WITH 0.5 MG ATROVENT VIA AEROGEN WITHOUT ADVERSE REACTION NOTED. PT WAS SUCTIONED FOR LARGE RETURN FROM ETT AND ORALLY. INLINE SUCTION CHANGED WITHOUT INCIDENT. CONT ORDERED. PT TEMP 101.1 AND PT IS ON COOLING MEASURES, CIRCUIT TEMP 34.9, POX 94% Addendum: 11/09/19 at 0213 by Sophia Green RT Amended: Links added.
--- NOTE | 2019-11-09 04:10 | NUR ---
RT NOTE ROUTINE VENT CHECK DONE. PT INTUBATED AND ON VENT V6 ON STATED SETTINGS WITH HEATED WIRE CIRCUIT. VENT IS PLUGGED TO RED OUTLET. ALARMS ARE ON AND AUDIBLE TO NURSING. AMBU BAG AT BEDSIDE AND CONNECTED TO O2 SOURCE. 8.0 ETT IS SECURED WITH ANCHORFAST AT 26 CM TO THE ORAL LEFT.WATER LEVEL IS ADEQUATE. CONT ORDERED. PT TEMP 100.8 AND PT IS ON COOLING MEASURES, CIRCUIT TEMP 34.9, POX 94% Addendum: 11/09/19 at 0418 by Sophia Green RT Amended: Links added.
[2019-11-09] MEDS: PIPERACILLIN-TAZO 4.5GM 100 ML IV SCH ×3 (05:56→22:00)
[2019-11-09] MEDS: FUROSEMIDE 40 MG/4 ML VIAL IV SCH ×2 (05:57→17:47)
[2019-11-09] MEDS: ALBUTEROL SULF 2.5 MG/0.5ML(0.5%) NEB SOLN NEB SCH ×3 (06:08→22:04)
[2019-11-09] MEDS: ACETYLCYSTEINE 20%(200MG/ML) SOL 4ML NEB SCH ×2 (06:08→14:00)
[2019-11-09 06:14] LABS: Basophils # (auto) 0.1 10 ^3/uL (0-0.2); Eosinophils # (auto) 0.1 10 ^3/uL (0-0.8); Eosinophils % (auto) 0.7 % (0.0-7.0); Nucleated Red Blood Cells % 0.2 %
[2019-11-09 06:16] LABS: Basophils % (auto) 0.5 % (0.0-2.0); Hematocrit 53.6 % (41.0-53.0); Hemoglobin 17.5 g/dL (13.5-17.5); Lymphocytes % (auto) 7.3 % (10.0-50.0); Mean Corpuscular Hemoglobin 26.8 pg (28.0-32.0); Mean Corpuscular Hgb Conc. 32.6 g/dL (32.0-36.0); Mean Corpuscular Volume 82.3 fL (80.0-100.0); Monocytes # (auto) 1.3 10 ^3/uL (0-1.3); Monocytes % (auto) 9.6 % (0.0-12.0); Neutrophils # (auto) 11.3 10 ^3/uL (1.6-8.6); Neutrophils % (auto) 81.9 % (37.0-80.0); Platelet Count (auto) 212 10^3/uL (140-450); Red Blood Cells 6.52 10^6/uL (4.5-5.90); Red Cell Distribution Width 17.6 % (11.8-14.3); White Blood Cell 13.7 10^3/uL (4.4-10.8)
[2019-11-09 06:35] LABS: Potassium 3.4 mmol/L (3.5-5.1)
[2019-11-09 06:39] LABS: BUN/Creatinine Ratio 18.4; Calcium 9.1 mg/dL (8.5-10.1); Magnesium 2.7 mg/dL (1.6-2.6)
--- NOTE | 2019-11-09 07:45 | NUR ---
ASSESS- PT. LYING IN BED ON VENT SIZE # 8.0 ET, 26 AT THE LIP, AC-18, TV-550, PEEP-12, FIO2-70%. PT. HAS GAG/COUGH REFLEX. LUNGS CLEAR ATIF. INSPIRATORY AND EXPIRATORY, DIMINISHED BASES ATIF. ON VERSED GTT. AT 10 MG./HR. AND PROPOFOL GTT. AT 35 MCG. RESPONDS TO PAINFUL/TACTILE STIMULI. NO MOVEMENT OF EXTREMITIES SEEN. OGT TO LIS WITH BILE DRAINAGE. ABD. SOFT, LG., ROUND. BOWEL SOUNDS HYPOACTIVE ALL FOUR QUADRANTS. F/C TO GRAVITY WITH CLOUDY ORANGE/LT. MONSERRAT URINE. RADIAL PULSES STRONG, PALPABLE ATIF. DORSALIS PEDAL PULSES STRONG, PALPABLE ATIF. NON-PITTING EDEMA UPPER AND LOWER EXTREMITIES ATIF. SCD'S ATIF. LE. TLC LT. IJ INTACT WITH CVP TO DISTAL PORT, READING 6 AT THIS TIME. RECTAL PROBE IN PLACE. PT. ON DROPLET PRECAUTIONS FOR MRSA NARES/SPUTUM.
--- NOTE | 2019-11-09 07:50 | NUR ---
RECTAL TEMP 100.8. PLACED ICE PACKS ATIF. AXILLA. NO COVERS ON PT. MONITORING TEMP.
--- NOTE | 2019-11-09 08:36 | NUR ---
DR. SCHRADER Provider/Hospitalist at bedside. GAVE UPDATE ON PT. K LEVEL 3.4 TODAY. NEW ORDERS RECEIVED.
[2019-11-09] MEDS ORDERED: TPN PER PHARMACY 0 ML IV SCH (08:45)
[2019-11-09] MEDS: POTASSIUM CHL 20MEQ/100ML 100 ML IV SCH ×2 (09:03→10:25)
[2019-11-09 09:04] LABS: Phosphorus 3.1 mg/dL (2.5-4.90)
[2019-11-09 09:08] LABS: Pre Albumin 20.1 mg/dL (20.0-40.0)
--- NOTE | 2019-11-09 09:45 | NUR ---
TEMP DECREASED TO 100.0 RECTALLY. ICE PACKS REMAIN IN PLACE ATIF. AXILLA.
[2019-11-09] MEDS: ENOXAPARIN SOD 40 MG/0.4 ML SYRINGE SC SCH (10:05)
[2019-11-09] MEDS: PANTOPRAZOLE 40 MG/10 ML VIAL INJ IV SCH (10:05)
[2019-11-09] MEDS: MUPIROCIN 2% OINT 15gm or 22gm EACHNOSTRI SCH ×2 (10:06→22:00)
[2019-11-09] MEDS: LINEZOLID 600MG/300ML 300 ML IV SCH (10:24)
[2019-11-09] MEDS ORDERED: LIDOCAINE 2%HCL (LOCAL ANESTH.) INJ 20ML MDV ONE (11:29)
[2019-11-09] MEDS ORDERED: SODIUM CHLORIDE LOCK 10 ML ONE (11:29)
[2019-11-09] MEDS ORDERED: BENZOCAINE (DENTAL) 20 % SPRAY 60ML MT ONE (11:29)
[2019-11-09] MEDS ORDERED: EPINEPHrine HCL 1 MG/1 ML AMP ONE (11:30)
[2019-11-09] MEDS ORDERED: LIDOCAINE HCL 2% TOP JELLY 5ML TOP ONE (11:30)
[2019-11-09] MEDS ORDERED: MIDAZOLAM HCL 5 MG/ML-1ML VIAL ONE (11:30)
[2019-11-09] MEDS ORDERED: fentaNYL CITRATE 100 MCG/2 ML VL ONE (11:30)
[2019-11-09] MEDS ORDERED: GLYCOPYRROLATE 0.2 MG/ML 1ML VIAL ONE (11:31)
[2019-11-09] MEDS ORDERED: ACETYLCYSTEINE 10 %(100MG/ML) SOL 4ML ONE (12:31)
[2019-11-09] MEDS ORDERED: ACETYLCYSTEINE 20%(200MG/ML) SOL 4ML ONE (12:31)
--- NOTE | 2019-11-09 12:35 | NUR ---
DR. ROJAS AT FOR BRONCHOSCOPY. CONSENT GIVEN BY SISTER VIA PHONE WITH 2 RN'S. RT HAD TO INCREASE FIO2 TO 100% ON VENT DURING PROCEDURE, O2 SATS DECREASING TO THE 80'S. PT. HIGH PRESSURING ON VENT AND BUCKING VENT. DR. ROJAS ORDERED SUCCICHOLINE 100 MG. IV TIMES ONE GIVEN AND INCREASED VERSED GTT. TO 11 MG./HR. AND PROPOFOL GTT. TO 40 MCG. BP STABLE. HR 80'S, SR WITHOUT ECTOPY.
[2019-11-09] MEDS ORDERED: SUCCINYLCHOLINE CHLORIDE 20 MG/ML 10ML VIAL IV ONE ×2 (12:43→13:00)
[2019-11-09] MEDS: ACETAMINOPHEN 650 mg PER 20 mL UD GT PRN (13:28)
--- NOTE | 2019-11-09 13:30 | NUR ---
TEMP 102.6 RECTALLY. MED. PT. WITH TYLENOL 650 MG. ELIXER VIA OGT. NO COVERS ON PT.
--- NOTE | 2019-11-09 15:00 | NUR ---
TEMP DECREASED TO 101.5 RECTALLY.
--- NOTE | 2019-11-09 19:30 | NUR ---
REPORT RECEIVED AND ASSUMED CARE; SEE INTERVENTIONS FOR ASSESSMENT; SEE IV SPREADSHEET FOR GTTS; VS STABLE AT THIS TIME -PT. INTUBATED/SEDATED/VENTED; PT. HAD A BRONCHOSCOPY TODAY AND HAD COPIOUS SECRETIONS AND MUCOUS PLUGS REMOVED PER REPORT; WILL CONT. TO MONITOR.
[2019-11-09] MEDS ORDERED: TPN PER PHARMACY IV NR ×7 (20:00)
[2019-11-10] VITALS (102 sets, daily range): BP systolic 88–129; BP diastolic 40–85
[2019-11-10] MEDS ORDERED: DEXTROSE (50%) 50ML SYRG IV SCH
--- NOTE | 2019-11-10 00:43 | NUR ---
UPDATED PT. SISTER ON PLAN OF CARE VIA TELEPHONE.
[2019-11-10] MEDS: ACCU-CHEK COMFORT CURVE STRIP VI SCH ×4 (01:35→17:54)
[2019-11-10] MEDS: InsuLIN REG 1unit/0.01ml Soln (100units/ml) SC SCH ×4 (01:35→17:56)
[2019-11-10] MEDS: LINEZOLID 600MG/300ML 300 ML IV SCH ×2 (01:36→15:49)
[2019-11-10] MEDS: IPRATROPIUM BROM 0.5 MG/2.5ML INH SOL NEB SCH ×6 (02:53→22:31)
[2019-11-10] MEDS: FUROSEMIDE 40 MG/4 ML VIAL IV SCH (05:55)
[2019-11-10] MEDS: PIPERACILLIN-TAZO 4.5GM 100 ML IV SCH ×3 (05:55→21:22)
[2019-11-10] MEDS: ALBUTEROL SULF 2.5 MG/0.5ML(0.5%) NEB SOLN NEB SCH ×3 (06:35→22:31)
[2019-11-10] MEDS: ENOXAPARIN SOD 40 MG/0.4 ML SYRINGE SC SCH (08:15)
[2019-11-10] MEDS: PANTOPRAZOLE 40 MG/10 ML VIAL INJ IV SCH (08:15)
--- NOTE | 2019-11-10 08:15 | NUR ---
Respiratory note: DR. ROJAS INFORMED OF ABG RESULTS FROM THIS MORNING. VENT ORDER UNCHANGED. AC- RR 14, VT 550, PEEP +12, 30%
[2019-11-10] MEDS: MUPIROCIN 2% OINT 15gm or 22gm EACHNOSTRI SCH (08:17)
[2019-11-10] MEDS: NOREPINEPHRINE 8 MG/250ML KIT 250 ML IV SCH (08:17)
[2019-11-10 08:25] LABS: Basophils # (auto) 0.1 10 ^3/uL (0-0.2); Basophils % (auto) 0.4 % (0.0-2.0); Eosinophils # (auto) 0.1 10 ^3/uL (0-0.8); Hematocrit 49.9 % (41.0-53.0); Hemoglobin 16.2 g/dL (13.5-17.5); Lymphocytes # (auto) 0.8 10 ^3/uL (0.4-5.4); Lymphocytes % (auto) 5.5 % (10.0-50.0); Mean Corpuscular Hemoglobin 27.3 pg (28.0-32.0); Mean Corpuscular Hgb Conc. 32.5 g/dL (32.0-36.0); Monocytes # (auto) 1.5 10 ^3/uL (0-1.3); Monocytes % (auto) 10.1 % (0.0-12.0); Neutrophils # (auto) 12.1 10 ^3/uL (1.6-8.6); Platelet Count (auto) 205 10^3/uL (140-450); Red Blood Cells 5.95 10^6/uL (4.5-5.90); Red Cell Distribution Width 17.2 % (11.8-14.3); White Blood Cell 14.5 10^3/uL (4.4-10.8)
[2019-11-10] MEDS: PROPOFOL 100 ML IV SCH ×8 (08:30→21:51)
[2019-11-10 08:41] LABS: Calcium 8.4 mg/dL (8.5-10.1); Magnesium 2.7 mg/dL (1.6-2.6); Potassium 3.5 mmol/L (3.5-5.1)
[2019-11-10 08:46] LABS: BUN/Creatinine Ratio 26.8; Bilirubin, Total 2.2 mg/dL (0.2-1.0); Phosphorus 5.1 mg/dL (2.5-4.90)
[2019-11-10] MEDS: MIDAZOLAM DRIP 50 mg/50mL 50 ML IV SCH ×5 (08:48→22:50)
--- NOTE | 2019-11-10 09:00 | NUR ---
PATIENT RESPONSIVE AND ALERT WITH DECREASED DOSE OF DIPRIVAN -NO CPAP TRIAL TODAY. SEDATION VACATION HELD. Addendum: 11/10/19 at 1100 by Liz Us RN Amended: Links added.
[2019-11-10 09:13] LABS: Albumin 2.1 g/dL (3.4-5.0)
--- NOTE | 2019-11-10 10:00 | NUR ---
PATIENT'S SISTER MOISES PADILLA - UPDATE GIVEN ON PATIENT'S CONDITION.
--- NOTE | 2019-11-10 10:30 | NUR ---
DR SCHRADER VISITS AND EXAMINES PATIENT - ORDERS RECEIVED.
--- NOTE | 2019-11-10 11:25 | NUR ---
Nutrition Followup Notes wt: 150 kgs Pt`s intubated sedated with propofol @ 39.1 ml/hr providing 1032 kcals from fats with no family by bedside. pt is currently NPO and now on PN support @ 50 ml/hr providing 1260 kcals and 60 gm proteins 1020 NCP. pt with 100-127% kcals and 35-62% proteins with propofol on board Est Energy needs: 3780-9962 kcals (12-15 kcal/kgBW), Est Protein needs: 145-182 gms/day (2.0-2.5 gm/kgIBW) d/t pt adiposity. Will continue to monitor and reassess prn. LABS: BUN 34 H, TG 364 H, CA 8.4 L, GLU 207 H GI: Pt with gastric drainage 350 ml this am per RN doc. BS: 11 high risk. Please refer to wound assessment report for full details. PES: 1) Increased nutrient needs aeb pt is sedated, intubated, NPO r/t pt with no PO intake 2) Obesity aeb 206% IBW and BMI of 48.8 kg/m2 r/t energy intake in excess of energy needs 3) Altered nutrient related lab values hypernatremia, chloremia, eleb CO2, hyperglycemia, eleb Bili, elev Trigly, mod hypoalbuminemia r/t current medical condition Comments 1) Continue to closely monitor pt NPO status. 2) Advanced PN support to meet > 75% of needs . 3) Gradually advance pt to oral diet when medically feasible and as tolerated. 4) Refer pt to RD for nutrition education upon D/C. 5) Continue current plan of care
--- NOTE | 2019-11-10 16:30 | NUR ---
DR ROJAS VISITS AND EXAMINES PATIENT - ORDERS RECEIVED.
--- NOTE | 2019-11-10 16:50 | NUR ---
TEMP 101.1 - COOLING MEASURES INITIATED. Addendum: 11/10/19 at 2 by Liz Us RN FEVERS CONT'D TO BE MONITORED.
--- NOTE | 2019-11-10 18:15 | NUR ---
PATIENT'S SISTER PHONES - GIVEN UPDATED ON PATIENT CONDITION - VERBALIZES UNDERSTANDING.
--- NOTE | 2019-11-10 19:20 | NUR ---
Opening notes Assumed care, still on vent, AC mode, sedation with versed and propofol infusing in the left IJ, TPN @ 50 ml/hr at this time, OGT in place connected to LIS, farnsworth catheter intact, still febrile, on continuous cooling measures. Bed in lowest position with side rails up, bed alarm on. Will continue care.
[2019-11-10] MEDS ORDERED: TPN PER PHARMACY IV NR ×7 (20:00)
[2019-11-11] VITALS (97 sets, daily range): BP systolic 92–133; BP diastolic 24–83
[2019-11-11] MEDS: ACCU-CHEK COMFORT CURVE STRIP VI SCH ×4 (00:17→17:59)
[2019-11-11] MEDS: InsuLIN REG 1unit/0.01ml Soln (100units/ml) SC SCH ×4 (00:19→18:52)
[2019-11-11] MEDS: LINEZOLID 600MG/300ML 300 ML IV SCH ×2 (00:21→12:20)
[2019-11-11] MEDS: NOREPINEPHRINE 8 MG/250ML KIT 250 ML IV SCH (00:24)
[2019-11-11] MEDS: PROPOFOL 100 ML IV SCH ×7 (02:32→18:47)
[2019-11-11] MEDS: IPRATROPIUM BROM 0.5 MG/2.5ML INH SOL NEB SCH ×7 (02:41→22:33)
[2019-11-11 04:31] LABS: Eosinophils # (auto) 0.2 10 ^3/uL (0-0.8); Lymphocytes # (auto) 0.9 10 ^3/uL (0.4-5.4); Mean Corpuscular Hemoglobin 27.3 pg (28.0-32.0); Mean Corpuscular Hgb Conc. 32.4 g/dL (32.0-36.0); Nucleated Red Blood Cells % 0.3 %
[2019-11-11 04:35] LABS: Basophils # (auto) 0.1 10 ^3/uL (0-0.2); Basophils % (auto) 0.5 % (0.0-2.0); Eosinophils % (auto) 1.3 % (0.0-7.0); Hematocrit 54.5 % (41.0-53.0); Hemoglobin 17.7 g/dL (13.5-17.5); Lymphocytes % (auto) 6.1 % (10.0-50.0); Mean Corpuscular Volume 84.2 fL (80.0-100.0); Monocytes # (auto) 1.9 10 ^3/uL (0-1.3); Monocytes % (auto) 13.5 % (0.0-12.0); Neutrophils # (auto) 11.3 10 ^3/uL (1.6-8.6); Neutrophils % (auto) 78.6 % (37.0-80.0); Platelet Count (auto) 243 10^3/uL (140-450); Red Blood Cells 6.48 10^6/uL (4.5-5.90); White Blood Cell 14.4 10^3/uL (4.4-10.8)
[2019-11-11 04:50] LABS: BUN/Creatinine Ratio 32.1; Bilirubin, Total 1.9 mg/dL (0.2-1.0); Calcium 9.2 mg/dL (8.5-10.1); Magnesium 2.8 mg/dL (1.6-2.6); Total Protein 8.6 g/dL (6.4-8.2)
[2019-11-11 05:01] LABS: Potassium 3.2 mmol/L (3.5-5.1)
[2019-11-11 05:03] LABS: Albumin 2.4 g/dL (3.4-5.0)
--- NOTE | 2019-11-11 05:25 | NUR ---
Paged Dr. Calderon re; K+ 3.2, left a vm to call us back.
[2019-11-11] MEDS: MIDAZOLAM DRIP 50 mg/50mL 50 ML IV SCH ×4 (05:28→21:04)
--- NOTE | 2019-11-11 05:50 | NUR ---
Morning care done, central line wiped with CHG
[2019-11-11] MEDS: ALBUTEROL SULF 2.5 MG/0.5ML(0.5%) NEB SOLN NEB SCH ×3 (05:53→22:33)
[2019-11-11] MEDS ORDERED: POTASSIUM CHL 20MEQ/100ML 200 ML IV ONE (06:17)
[2019-11-11] MEDS: PIPERACILLIN-TAZO 4.5GM 100 ML IV SCH ×3 (06:27→22:21)
[2019-11-11] MEDS: POTASSIUM CHL 20MEQ/100ML 100 ML IV SCH ×2 (06:27→08:18)
--- NOTE | 2019-11-11 06:29 | NUR ---
Orders from Dr. Calderon to give potassium received by Faraz ABAD Started KCL 20 Meq IV.
--- NOTE | 2019-11-11 07:06 | NUR ---
Spoke with the Pharmacist thru phone re: order for potassium 40 Meq po, per pharmacist, dilute 2 tabs of effervescent to 20ml water and give 16 ml potassium. Will endorse to day shift RN.
[2019-11-11] MEDS ORDERED: POTASSIUM EFFERVESENT TAB 25 MEQ GT ONE (07:15)
--- NOTE | 2019-11-11 08:00 | NUR ---
Opening Shift Note Assumed care of patient, intubated and sedated. No S/S of distress/SOB or pain. See interventions for complete assessment. Bed locked on low position, side rails up x2, bed alarms on at all times, will continue to monitor for changes Q1hr and PRN.
[2019-11-11] MEDS: PANTOPRAZOLE 40 MG/10 ML VIAL INJ IV SCH (10:07)
[2019-11-11] MEDS: ENOXAPARIN SOD 40 MG/0.4 ML SYRINGE SC SCH (10:08)
--- NOTE | 2019-11-11 10:50 | NUR ---
Dr Kennedy at bedside, updated on patient's status. Patient seen and examined. Will carry out new orders.
--- NOTE | 2019-11-11 12:07 | NUR ---
Received call from patient's sister Elle who's able to provide password, updated on patient's status and POC, verbalized understanding. All question and concerns addressed.
--- NOTE | 2019-11-11 13:08 | NUR ---
Called in GI consult to Dr Newby, awaiting call back.
--- NOTE | 2019-11-11 13:20 | NUR ---
Dr Solorzano at bedside, updated on patient's status. Patient seen and examined. Will carry out new orders.
--- NOTE | 2019-11-11 13:44 | NUR ---
Dr Newby at bedside, updated on patient's status. Patient seen and examined. Will carry out new orders.
[2019-11-11] MEDS: METOCLOPRAMIDE HCL 5MG/ml INJ 2ml VIAL IV SCH ×2 (15:15→22:20)
--- NOTE | 2019-11-11 16:00 | NUR ---
Patient's rectal temperature 100.6, cooling measures done. Will continue to monitor.
[2019-11-11] MEDS: ACETAMINOPHEN 650 mg PER 20 mL UD GT PRN ×2 (16:55→22:21)
[2019-11-11] MEDS ORDERED: TPN PER PHARMACY IV NR ×7 (20:00)
--- NOTE | 2019-11-11 20:00 | NUR ---
RECIEVED PT VENTILATED, PROPOFOL NOTED TO BE DRY, PT IS AWAKE, APPEARS ANXIOUS BUT NOT THRASHING, REORIENTED TO ENVIRONMENT, RECTAL TEMP 100.4, COOLING MEASURES IN PLACE, SEE INTERVENTIONS FOR HEAD TO TOE ASSESSMENT AND VITAL SIGNS, PROPOFOL REPLACED
--- NOTE | 2019-11-11 22:21 | NUR ---
RECTAL TEMP 101.3 INSPITE OF COOLING MEASURE, LIQ TYELENOL GIVEN VIA NGT
[2019-11-12] VITALS (99 sets, daily range): BP systolic 99–157; BP diastolic 49–102
[2019-11-12] MEDS: NOREPINEPHRINE 8 MG/250ML KIT 250 ML IV SCH (00:24)
[2019-11-12] MEDS: LINEZOLID 600MG/300ML 300 ML IV SCH ×3 (01:08→13:38)
--- NOTE | 2019-11-12 02:00 | NUR ---
PT REMAINS FEBRILE BUT BETTER 100.8, COOL TEPID BATH GIVEN AND LINEN CHANGE, ORAL CARE AND REPOSITIONED, PT DESATURATES WITH ACTIVITY THEN RECOVERS
[2019-11-12] MEDS: IPRATROPIUM BROM 0.5 MG/2.5ML INH SOL NEB SCH ×6 (02:12→22:02)
[2019-11-12 04:20] LABS: Hematocrit 48.5 % (41.0-53.0); Hemoglobin 15.9 g/dL (13.5-17.5); Mean Corpuscular Hemoglobin 27.3 pg (28.0-32.0); Mean Corpuscular Hgb Conc. 32.7 g/dL (32.0-36.0); Mean Corpuscular Volume 83.3 fL (80.0-100.0); Platelet Count (auto) 325 10^3/uL (140-450); Red Blood Cells 5.82 10^6/uL (4.5-5.90); Red Cell Distribution Width 17.1 % (11.8-14.3); White Blood Cell 11.6 10^3/uL (4.4-10.8)
[2019-11-12 04:24] LABS: Basophils % (manual) 0 (0.0-2.0); Blast Cells 0; Metamyelocytes % 0; Myelocytes % 0; Promyelocytes % 0; Reactive Lymphocytes 0
[2019-11-12 04:37] LABS: Calcium 9.1 mg/dL (8.5-10.1); Magnesium 2.3 mg/dL (1.6-2.6); Potassium 3.3 mmol/L (3.5-5.1)
[2019-11-12 04:42] LABS: Albumin 2.2 g/dL (3.4-5.0); BUN/Creatinine Ratio 27.8; Bilirubin, Total 2.4 mg/dL (0.2-1.0); Phosphorus 2.7 mg/dL (2.5-4.90); Total Protein 8.2 g/dL (6.4-8.2)
[2019-11-12 05:02] LABS: Band Neutrophils % (manual) 5; Eosinophils % (manual) 4 (0-7); Lymphocytes % (manual) 28 (10.0-50.0); Monocytes % (manual) 3 (0-12)
[2019-11-12] MEDS: ALBUTEROL SULF 2.5 MG/0.5ML(0.5%) NEB SOLN NEB SCH ×3 (05:56→22:02)
[2019-11-12] MEDS: ACCU-CHEK COMFORT CURVE STRIP VI SCH ×4 (06:00→18:05)
[2019-11-12] MEDS: METOCLOPRAMIDE HCL 5MG/ml INJ 2ml VIAL IV SCH ×3 (06:00→22:00)
[2019-11-12] MEDS: PIPERACILLIN-TAZO 4.5GM 100 ML IV SCH ×3 (06:00→22:00)
[2019-11-12] MEDS: InsuLIN REG 1unit/0.01ml Soln (100units/ml) SC SCH ×4 (06:21→18:15)
--- NOTE | 2019-11-12 08:45 | NUR ---
DR ROJAS VISITS AND EXAMINES PATIENT - ORDERS RECEIVED. RT NOTIFIED.
--- NOTE | 2019-11-12 09:00 | NUR ---
SEE SPREAD SHEET FOR TITRATION WITH CPAP TRIAL. Addendum: 11/12/19 at 1955 by Liz Us RN Amended: Links added.
[2019-11-12] MEDS: PANTOPRAZOLE 40 MG/10 ML VIAL INJ IV SCH (09:12)
[2019-11-12] MEDS: ENOXAPARIN SOD 40 MG/0.4 ML SYRINGE SC SCH (09:12)
--- NOTE | 2019-11-12 09:40 | NUR ---
Dr Kennedy visits and examines patient - order received.
--- NOTE | 2019-11-12 09:55 | NUR ---
PT PLACED ON CPAP TRIAL PER DR ROJAS ORDER. CPAP TRIAL TERMINATED DUE TO PT INCREASED RR OF 57, AND DECREASE IN SPO2 TO 82% WITHIN 10 SECONDS OF VENT CHANGE. PT RETURNED TO AC MODE ON PREVIOUS SETTINGS. RN AT BEDSIDE. WILL CONTINUE TO MONITOR PT.
--- NOTE | 2019-11-12 10:25 | NUR ---
Dr Newby visits and examines patient - no new orders received.
--- NOTE | 2019-11-12 10:35 | NUR ---
Call placed to Dr Solorzano re: cpap trial with patient's sao2 dropping to 81-82 and resp rate 57-58 - message left on vm - awaiting call back as to whether MD would like abg s/p PEEP changed from this AM.
--- NOTE | 2019-11-12 10:42 | NUR ---
Received call from Dr Solorzano - no further orders received re: CPAP trial.
--- NOTE | 2019-11-12 10:44 | NUR ---
Patient's sister phones - updated on patient's CPAP trial and general status - verbalized understanding.
--- NOTE | 2019-11-12 11:05 | NUR ---
Nutrition Followup Notes wt: 150.3 kgs Pt`s intubated off sedation for CPAP per RN. pt is currently NPO and now on PN support @ 57 ml/hr providing 1170 kcals and 80 gm proteins 1020 NCP. Per records pt s/p bronchoscopy Est Energy needs: 2238-3955 kcals (12-15 kcal/kgBW), Est Protein needs: 145-182 gms/day (2.0-2.5 gm/kgIBW) d/t pt adiposity. Will continue to monitor and reassess prn. LABS: ALB 2.2 L, GLU 140 H, BUN 22 H GI: Pt with gastric drainage 375 ml this am per RN doc. BS: 11 high risk. Please refer to wound assessment report for full details. PES: 1) Increased nutrient needs aeb pt is sedated, intubated, NPO r/t pt with no PO intake 2) Obesity aeb 206% IBW and BMI of 48.8 kg/m2 r/t energy intake in excess of energy needs 3) Altered nutrient related lab values hypernatremia, chloremia, eleb CO2, hyperglycemia, eleb Bili, elev Trigly, mod hypoalbuminemia r/t current medical condition Comments 1) Continue to closely monitor pt NPO status. 2) Advanced PN support to meet > 75% of needs . 3) Gradually advance pt to oral diet when medically feasible and as tolerated. 4) Refer pt to RD for nutrition education upon D/C. 5) Continue current plan of care
[2019-11-12] MEDS: PROPOFOL 100 ML IV SCH ×3 (13:12→17:01)
[2019-11-12] MEDS: MIDAZOLAM DRIP 50 mg/50mL 50 ML IV SCH ×2 (13:13→17:28)
[2019-11-12] MEDS: POTASSIUM CHL 20MEQ/100ML 100 ML IV SCH ×2 (13:35→15:00)
--- NOTE | 2019-11-12 15:15 | NUR ---
PT SPO2 DECREASED TO 88%. FIO2 INCREASED FROM 30%, TO 45% TO MAINTAIN SPO2 >92%. PT SPO2 92%, HR 84, RR 18, BS CL/DIMINISHED BILATERALLY. SX ETT FOR SMALL AMOUNT OF THICK, CREAMY, BLOOD TINGED SECRETIONS, AND ORALLY FOR THICK, CLEAR SECRETIONS. GAG REFLEX NOTED. RN AT BEDSIDE. WILL CONTINUE TO MONITOR PT.
--- NOTE | 2019-11-12 19:00 | NUR ---
Opening shift note: Primary RN received report on patient. Patient intubated ETT 8.0/26 CM @ LL, Vent settings: AC 14 TV 550, FIO2 45%, PEEP 8, O2 SAT 95%, bilateral lung sounds clear and diminished. Left IJ triple lumen central catheter infusing, Propofol @ 50, TPN @ 57 and Versed @ 12. OG tube connected to LIS, placement checked. Cook catheter draining via gravity with yellow urine. Safety precautions in place. Will continue to monitor.
[2019-11-12] MEDS ORDERED: TPN PER PHARMACY IV NR ×9 (20:00)
[2019-11-13] VITALS (101 sets, daily range): BP systolic 98–153; BP diastolic 53–106
--- NOTE | 2019-11-13 | NUR ---
Bed bath: RN provided patient with a bed bath and also applied a cooling blanket to patient due to elevated temp. RN also applied ice packs to patient. RN will continue to monitor and assess patient.
[2019-11-13] MEDS: NOREPINEPHRINE 8 MG/250ML KIT 250 ML IV SCH (00:24)
[2019-11-13] MEDS: LINEZOLID 600MG/300ML 300 ML IV SCH ×2 (01:00→12:55)
[2019-11-13] MEDS: ACETAMINOPHEN 650 mg PER 20 mL UD GT PRN ×2 (01:25→22:30)
[2019-11-13] MEDS: IPRATROPIUM BROM 0.5 MG/2.5ML INH SOL NEB SCH ×6 (02:14→23:12)
[2019-11-13 04:35] LABS: Hematocrit 49.6 % (41.0-53.0); Hemoglobin 16.1 g/dL (13.5-17.5); Mean Corpuscular Hemoglobin 27.2 pg (28.0-32.0); Mean Corpuscular Hgb Conc. 32.4 g/dL (32.0-36.0); Platelet Count (auto) 392 10^3/uL (140-450); Red Blood Cells 5.91 10^6/uL (4.5-5.90); White Blood Cell 10.4 10^3/uL (4.4-10.8)
[2019-11-13 04:50] LABS: Basophils % (manual) 0 (0.0-2.0); Blast Cells 0; Metamyelocytes % 0; Myelocytes % 0; Promyelocytes % 0; Reactive Lymphocytes 0
[2019-11-13 04:55] LABS: BUN/Creatinine Ratio 22.5; Calcium 9.3 mg/dL (8.5-10.1); Magnesium 2.2 mg/dL (1.6-2.6); Potassium 3.7 mmol/L (3.5-5.1)
[2019-11-13 04:59] LABS: Bilirubin, Total 2.4 mg/dL (0.2-1.0); Phosphorus 3.9 mg/dL (2.5-4.90); Total Protein 8.5 g/dL (6.4-8.2)
[2019-11-13] MEDS: PIPERACILLIN-TAZO 4.5GM 100 ML IV SCH ×3 (05:37→21:50)
[2019-11-13] MEDS: METOCLOPRAMIDE HCL 5MG/ml INJ 2ml VIAL IV SCH ×3 (05:37→21:50)
[2019-11-13] MEDS: InsuLIN REG 1unit/0.01ml Soln (100units/ml) SC SCH ×5 (05:50→23:23)
[2019-11-13] MEDS: ACCU-CHEK COMFORT CURVE STRIP VI SCH ×5 (05:51→23:23)
[2019-11-13] MEDS: ALBUTEROL SULF 2.5 MG/0.5ML(0.5%) NEB SOLN NEB SCH ×3 (06:06→18:38)
--- NOTE | 2019-11-13 06:18 | NUR ---
Respiratory note: RECEIVED PATIENT ON V6 V200 VENT ORALLY INTUBATED WITH AN 8.0 ETT SECURED VIA KESHAV AT THE 26CM MARKING AT THE LIP, AND MECHANICALLY VENTILATED WITH THE CHARTED SETTINGS. SPO2 96%, LUNG SOUNDS CLEAR/DIM T/O, NO SECRETIONS WHEN SUCTIONED. SKIN IS WARM/DRY TO THE TOUCH AND IS INTACT NEAR KESHAV SITE. AM CXR SHOWS ETT IN SATISFACTORY POSITION SITTING APPROX 3.6CM ABOVE THE FRANCESCA. PATIENT IS UNRESPONSIVE TO BOTH VERBAL/TACTILE STIMULI AND IS SEDATED ON VERSED DRIP. HE IS RESTING COMFORTABLY AND TOLERATING VENT WELL, NO CHANGES MADE. VENT PLUGGED INTO RED OUTLET AND ALL ALAMRS ARE SET AND AUDIBLE. WILL CONTINUE TO ASSESS PATIENT WELL VENTILATOR FUNCTION. [employer] IN[employer].
[2019-11-13 06:34] LABS: Band Neutrophils % (manual) 5; Eosinophils % (manual) 2 (0-7)
[2019-11-13 06:36] LABS: Lymphocytes % (manual) 11 (10.0-50.0)
[2019-11-13 06:42] LABS: Monocytes % (manual) 9 (0-12)
[2019-11-13 07:15] LABS: Albumin 1.8 g/dL (3.4-5.0)
--- NOTE | 2019-11-13 09:00 | NUR ---
PATIENT AWAKENS WITH SEDATION VACATION, BECOMES SOB, MOVES BILAT UPPER EXTREMITIES RANDOMLY. Addendum: 11/13/19 at 1735 by Liz Us RN Amended: Links added.
[2019-11-13] MEDS: ENOXAPARIN SOD 40 MG/0.4 ML SYRINGE SC SCH (09:30)
[2019-11-13] MEDS: PANTOPRAZOLE 40 MG/10 ML VIAL INJ IV SCH (09:30)
--- NOTE | 2019-11-13 09:45 | NUR ---
PATIENT'S SISTER MOISES PADILLA - UPDATED ON PATIENT'S CURRENT CONDITION - VERBALIZED UNDERSTANDING.
[2019-11-13] MEDS: PROPOFOL 100 ML IV SCH ×4 (10:35→16:59)
--- NOTE | 2019-11-13 10:40 | NUR ---
DR MCCONNELL VISITS AND EXAMINES PATIENT - ORDERS RECEIVED.
[2019-11-13] MEDS: MIDAZOLAM DRIP 50 mg/50mL 50 ML IV SCH ×3 (11:45→19:00)
[2019-11-13] MEDS: BUMETANIDE 2.5mg/10ml (0.25 mg/ml) INJ IV SCH (12:40)
--- NOTE | 2019-11-13 16:00 | NUR ---
Respiratory note: 1400 MED-NEB NON-ADMINISTERED THERAPIST WAS UNAVAILABLE. NO NEGATIVE INTERACTION NOTED FROM MISSED MED-NEB TX.
--- NOTE | 2019-11-13 19:00 | NUR ---
Opening shift note: Primary RN received report on patient. Patient intubated ETT 8.0/26 CM @ LL, Vent settings: AC 14 TV 550, FIO2 35%, PEEP 8, O2 SAT 96%, bilateral lung sounds clear and diminished. Left IJ triple lumen central catheter infusing, Propofol @ 50, TPN @ 63 and Versed @ 15. OG tube connected to LIS, placement checked. Cook catheter draining via gravity with yellow urine. Safety precautions in place. Will continue to monitor.
[2019-11-13] MEDS ORDERED: TPN PER PHARMACY IV NR ×8 (20:00)
--- NOTE | 2019-11-13 22:00 | NUR ---
OG tube: RN attempted to flush patients OG tube to administer PRN tylenol d/t elevated temp but OG tube was noted to no longer be flushing. OG tube appeared to be clogged. RN removed OG tube and re-inserted 18 Fr OG tube on first attempt. Placement confirmed via gastric content noted.
[2019-11-14] VITALS (82 sets, daily range): BP systolic 101–144; BP diastolic 48–104
[2019-11-14] MEDS: NOREPINEPHRINE 8 MG/250ML KIT 250 ML IV SCH (00:24)
[2019-11-14] MEDS: LINEZOLID 600MG/300ML 300 ML IV SCH ×2 (01:00→14:11)
--- NOTE | 2019-11-14 01:09 | NUR ---
TEMP: Patient's temp is now noted at 99.0. Tylenol and cooling measures are noted to be effective in managing patient's temp. RN will continue to monitor and assess.
[2019-11-14] MEDS: IPRATROPIUM BROM 0.5 MG/2.5ML INH SOL NEB SCH ×5 (02:20→22:05)
[2019-11-14 04:43] LABS: Hematocrit 48.7 % (41.0-53.0); Hemoglobin 15.9 g/dL (13.5-17.5); Mean Corpuscular Hemoglobin 27.5 pg (28.0-32.0); Mean Corpuscular Hgb Conc. 32.5 g/dL (32.0-36.0); Mean Corpuscular Volume 84.4 fL (80.0-100.0); Platelet Count (auto) 399 10^3/uL (140-450); Red Blood Cells 5.77 10^6/uL (4.5-5.90); Red Cell Distribution Width 16.8 % (11.8-14.3); White Blood Cell 9.7 10^3/uL (4.4-10.8)
[2019-11-14 04:55] LABS: Potassium 4.1 mmol/L (3.5-5.1)
[2019-11-14 05:02] LABS: BUN/Creatinine Ratio 29.7; Bilirubin, Total 1.9 mg/dL (0.2-1.0); Calcium 9.2 mg/dL (8.5-10.1); Phosphorus 4.8 mg/dL (2.5-4.90)
[2019-11-14 05:38] LABS: Basophils % (manual) 0 (0.0-2.0); Blast Cells 0; Metamyelocytes % 0; Myelocytes % 0; Promyelocytes % 0; Reactive Lymphocytes 0
[2019-11-14] MEDS: ALBUTEROL SULF 2.5 MG/0.5ML(0.5%) NEB SOLN NEB SCH ×3 (05:49→22:04)
[2019-11-14] MEDS: InsuLIN REG 1unit/0.01ml Soln (100units/ml) SC SCH ×3 (06:00→18:00)
[2019-11-14] MEDS: METOCLOPRAMIDE HCL 5MG/ml INJ 2ml VIAL IV SCH ×3 (06:00→22:07)
[2019-11-14] MEDS: ACCU-CHEK COMFORT CURVE STRIP VI SCH ×3 (06:00→18:00)
[2019-11-14] MEDS: PIPERACILLIN-TAZO 4.5GM 100 ML IV SCH ×3 (06:00→22:07)
[2019-11-14 06:55] LABS: Band Neutrophils % (manual) 3; Eosinophils % (manual) 6 (0-7); Lymphocytes % (manual) 13 (10.0-50.0); Monocytes % (manual) 11 (0-12)
[2019-11-14 07:21] LABS: Albumin 1.7 g/dL (3.4-5.0)
--- NOTE | 2019-11-14 07:30 | NUR ---
Received report from Shai ROSE Patient sedated on mechanical ventilation with versed and propofol. Patient receiving TPN and is on bowel rest at this time, intermittent suctioning with brown/green liquid. PM output of 355 ml. Patient plan is for CPAP today with possible weaning of endotracheal tube if parameters are met. Patient has farnsworth catheter to gravity. Sister called for update on status and for plan of care. All questions answered at this time.
--- NOTE | 2019-11-14 09:15 | NUR ---
Respiratory note: CHANGED DROOPING HOLISTER TO PREVENT LIP BREAKDOWN. ALARMS VERIFIED AND AUDIBLE. FIO2 TITRATED TO 40%, TOLERATING CHANGE WELL. RN MADE AWARE OF CHANGE.NO FURTHER VENT CHANGES AT THIS TIME. WILL CONTINUE TO MONITOR ORDERED.
[2019-11-14] MEDS: PANTOPRAZOLE 40 MG/10 ML VIAL INJ IV SCH (09:28)
[2019-11-14] MEDS: BUMETANIDE 2.5mg/10ml (0.25 mg/ml) INJ IV SCH (09:28)
[2019-11-14] MEDS: ENOXAPARIN SOD 40 MG/0.4 ML SYRINGE SC SCH (09:29)
[2019-11-14] MEDS: MIDAZOLAM DRIP 50 mg/50mL 50 ML IV SCH (09:55)
--- NOTE | 2019-11-14 10:20 | NUR ---
Respiratory note: MED NEB TX GIVEN VIA AEROGEN, TOLERATED WELL. HR 70, RR 15, SPO2 94% ON FIO2 40%.
--- NOTE | 2019-11-14 15:36 | NUR ---
Nutrition Followup Notes wt: 154.2 kgs Pt`s intubated, sedated with propofol running at 43.545 ml/hr, providing 1150 additional kcals from lipids. Pt is currently NPO, on TPN support @ 63 ml/hr providing 1210 kcals and 90 gm proteins 1020 NCP. Pt with inadequate energy intake from PN support aeb 54% to 67% of est caloric needs. Protein intake from PN support is inadequate aeb 49% to 62% protein needs. (Note total kcals from current rate of propofol plus PN support meets estimated caloric needs. Will continue to monitor PO status, skin status, pertinent labs and weight trends. Will f/u in 2-3 days. Est Energy needs: 1221-8438 kcals (12-15 kcal/kgBW), Est Protein needs: 145-182 gms/day (2.0-2.5 gm/kgIBW) d/t pt adiposity. Will continue to monitor and reassess prn. LABS: NA 134 L, ALB 1.7 L, GLU 121 H, AST/ALT 87/138 H, BILI 1.9 H GI: Pt with gastric drainage 250 ml on 11/12 per RN doc. BS: 14 high risk. Please refer to wound assessment report for full details. PES: 1) Increased nutrient needs aeb pt is sedated, intubated, NPO r/t pt with no PO intake 2) Obesity aeb 206% IBW and BMI of 48.8 kg/m2 r/t energy intake in excess of energy needs 3) Altered nutrient related lab values hypernatremia, chloremia, eleb CO2, hyperglycemia, eleb Bili, elev Trigly, mod hypoalbuminemia r/t current medical condition Comments 1) Continue to closely monitor pt NPO status. 2) Advanced PN support to meet > 75% of needs . 3) Gradually advance pt to oral diet when medically feasible and as tolerated. 4) Refer pt to RD for nutrition education upon D/C. 5) Continue current plan of care
--- NOTE | 2019-11-14 19:00 | NUR ---
Opening shift note: Primary RN received report on patient. Patient intubated ETT 8.0/26 CM @ LL, Vent settings: AC 14 TV 550, FIO2 40%, PEEP 8, O2 SAT 96%, bilateral lung sounds clear and diminished. Left IJ triple lumen central catheter infusing, Propofol @ 50, TPN @ 61.938 and Versed @ 15. OG tube connected to LIS, placement checked. Cook catheter draining via gravity with yellow urine. Safety precautions in place. Will continue to monitor.
--- NOTE | 2019-11-14 19:00 | NUR ---
Report to Shai FRANCO
[2019-11-14] MEDS: ACETAMINOPHEN 650 mg PER 20 mL UD GT PRN (19:59)
[2019-11-14] MEDS ORDERED: TPN PER PHARMACY IV NR ×8 (20:00)
--- NOTE | 2019-11-14 23:30 | NUR ---
Dental Therapist Paged: RN paged life skills coordinator d/t patient breathing over vent and breathing into the high 30's and 40's. Dental Therapist did not return page after multiple attempts. RN paged primary MD and covering MD "Yumiko" was made aware of patient's condition and situation. New orders received and verified.
[2019-11-14] MEDS: fentaNYL Drip 2500mCg/250mlNS 250 ML IV SCH (23:40)
[2019-11-15] VITALS (103 sets, daily range): BP systolic 103–154; BP diastolic 47–103
[2019-11-15] MEDS: NOREPINEPHRINE 8 MG/250ML KIT 250 ML IV SCH (00:24)
[2019-11-15] MEDS: LINEZOLID 600MG/300ML 300 ML IV SCH ×2 (01:00→15:42)
[2019-11-15] MEDS: fentaNYL Drip 2500mCg/250mlNS 250 ML IV SCH (02:00)
[2019-11-15 04:26] LABS: Hematocrit 46.8 % (41.0-53.0); Hemoglobin 15.1 g/dL (13.5-17.5); Mean Corpuscular Hemoglobin 27.2 pg (28.0-32.0); Mean Corpuscular Hgb Conc. 32.3 g/dL (32.0-36.0); Mean Corpuscular Volume 84.3 fL (80.0-100.0); Platelet Count (auto) 415 10^3/uL (140-450); Red Blood Cells 5.55 10^6/uL (4.5-5.90); White Blood Cell 8.9 10^3/uL (4.4-10.8)
[2019-11-15 04:45] LABS: BUN/Creatinine Ratio 34.9; Calcium 8.6 mg/dL (8.5-10.1)
[2019-11-15 04:46] LABS: INR 1.06 (0.9-1.15); Partial Thromboplastin Time 27.4 sec (23.64-32.05)
[2019-11-15 04:50] LABS: Bilirubin, Total 1.1 mg/dL (0.2-1.0); Phosphorus 3.7 mg/dL (2.5-4.90); Total Protein 7.8 g/dL (6.4-8.2)
[2019-11-15 05:12] LABS: Basophils % (manual) 0 (0.0-2.0); Blast Cells 0; Metamyelocytes % 0; Promyelocytes % 0; Reactive Lymphocytes 0
[2019-11-15 05:29] LABS: Pre Albumin 27.9 mg/dL (20.0-40.0)
[2019-11-15] MEDS: IPRATROPIUM BROM 0.5 MG/2.5ML INH SOL NEB SCH ×3 (05:43→22:15)
[2019-11-15] MEDS: ALBUTEROL SULF 2.5 MG/0.5ML(0.5%) NEB SOLN NEB SCH ×2 (05:43→22:16)
[2019-11-15] MEDS: ACCU-CHEK COMFORT CURVE STRIP VI SCH ×5 (05:46→23:44)
[2019-11-15] MEDS: InsuLIN REG 1unit/0.01ml Soln (100units/ml) SC SCH ×5 (05:46→23:44)
[2019-11-15] MEDS: PIPERACILLIN-TAZO 4.5GM 100 ML IV SCH ×3 (06:10→21:46)
[2019-11-15] MEDS: METOCLOPRAMIDE HCL 5MG/ml INJ 2ml VIAL IV SCH ×3 (06:10→21:46)
--- NOTE | 2019-11-15 07:30 | NUR ---
Received report Shai ROSE. Patient remains on same mechanical vent AC 14 TV 550 FIO2 45 TV 550. Sedation Fentanyl 25mcg, Versed 15g, Propofol 50 mcg. In NSR, HR 80's, BP 108/67. Patient remained afebrile during p.m. shift once Fentanyl was initiated. Bowel decompression via OG tube to LIS, with brown output, active bowel sounds. Cook catheter to gravity dark denton/coffee colored urine. No BM during shift. Will continue to monitor.
[2019-11-15 08:08] LABS: Band Neutrophils % (manual) 3; Eosinophils % (manual) 9 (0-7); Lymphocytes % (manual) 11 (10.0-50.0); Monocytes % (manual) 6 (0-12); Myelocytes % 1
[2019-11-15] MEDS: PROPOFOL 100 ML IV SCH ×2 (08:40→12:23)
[2019-11-15] MEDS: BUMETANIDE 2.5mg/10ml (0.25 mg/ml) INJ IV SCH (10:38)
[2019-11-15] MEDS: ENOXAPARIN SOD 40 MG/0.4 ML SYRINGE SC SCH (10:39)
[2019-11-15] MEDS: PANTOPRAZOLE 40 MG/10 ML VIAL INJ IV SCH (10:39)
--- NOTE | 2019-11-15 10:42 | NUR ---
RN paused Versed and Diprivan for sedation vacation and to do weaning trials. Will continue to monitor.
--- NOTE | 2019-11-15 10:50 | NUR ---
Dr. Newby bedside, updated on status. No new orders.
--- NOTE | 2019-11-15 11:51 | NUR ---
Patient off of all sedation but Fentanyl for 45 minutes, started weaning trial, patient following commands and moving all extremities prior to trial. Patient became very tachypnic, so RT cancelled weaning trial after five minutes. Will discuss with Dr. Centeno D/C sedation and going to Precedex.
--- NOTE | 2019-11-15 11:55 | NUR ---
WOUND CARE NOTE: PATIENT ON WOUND CARE SKIN/WOUND MONITORING FOR LOW JOSE G SCORES. CURRENT JOSE G SCORE IS 14. PATIENT CONTINUES TO BE INTUBATED. PER BEDSIDE NURSE, PATIENT HAS XEROSIS TO SKIN. NO OTHER SKIN INTEGRITY ISSUES. SKIN/WOUND CARE PLAN UPDATED. RECOMMEND: BID/PRN APPLICATION WITH LOTION TO DRY SKIN (MAY USE HYDRAGUARD TO EXCEPTIONALLY DRY AREAS), CONTINUATION WITH ALL WOUND CARE ORDERS PREVIOUSLY PRESCRIBED BY MD. WOUND CARE TEAM WILL CONTINUE TO MONITOR.
--- NOTE | 2019-11-15 14:09 | NUR ---
Dr. Centeno bedside. Updated on CPAP status that patient was only able to tolerate 5 minutes. New order for KUB studies d/t no BM and new order for bronchoscopy for tomorrow 11/16/19 around 1200.
[2019-11-15] MEDS: ACETAMINOPHEN 650 mg PER 20 mL UD GT PRN (16:51)
--- NOTE | 2019-11-15 18:43 | NUR ---
Called Residential Recycle Driver to let her know about scheduled bronchoscopy for 11/16/2019
--- NOTE | 2019-11-15 19:00 | NUR ---
Opening shift note: Primary RN received report on patient. Patient intubated ETT 8.0/26 CM @ LL, Vent settings: AC 14 TV 550, FIO2 40%, PEEP 8, O2 SAT 96%, bilateral lung sounds clear and diminished. Left IJ triple lumen central catheter infusing, Propofol @ 50, TPN @ 65, Fentanyl @ 50 and Versed @ 15. OG tube connected to LIS, placement checked. Cook catheter draining via gravity with yellow urine. Safety precautions in place. Will continue to monitor.
--- NOTE | 2019-11-15 19:30 | NUR ---
Report to Shai ROSE. Plan is to Bronch patient tomorrow at 1200. Elle, patient sister gave over the phone consent today with another RN witness. Patient remains sedated, on mechanical ventilation with OG to LIS with total output green/brown liquid 350 ml. Cook cather to gravity total 1300ml output dark denton.
[2019-11-15] MEDS ORDERED: TPN PER PHARMACY IV NR ×9 (20:00)
[2019-11-16] VITALS (105 sets, daily range): BP systolic 99–149; BP diastolic 52–108
[2019-11-16] MEDS: MIDAZOLAM DRIP 50 mg/50mL 50 ML IV SCH ×2 (00:15→22:07)
[2019-11-16] MEDS: NOREPINEPHRINE 8 MG/250ML KIT 250 ML IV SCH (00:24)
[2019-11-16] MEDS: LINEZOLID 600MG/300ML 300 ML IV SCH ×2 (00:45→14:40)
[2019-11-16] MEDS: PROPOFOL 100 ML IV SCH ×4 (01:50→22:08)
[2019-11-16 04:56] LABS: Potassium 4.2 mmol/L (3.5-5.1)
[2019-11-16 05:01] LABS: BUN/Creatinine Ratio 33.3; Bilirubin, Total 0.8 mg/dL (0.2-1.0); Total Protein 7.8 g/dL (6.4-8.2)
[2019-11-16 05:13] LABS: Magnesium 2.1 mg/dL (1.6-2.6); Phosphorus 4.2 mg/dL (2.5-4.90)
[2019-11-16] MEDS: PIPERACILLIN-TAZO 4.5GM 100 ML IV SCH ×3 (05:24→22:01)
[2019-11-16] MEDS: METOCLOPRAMIDE HCL 5MG/ml INJ 2ml VIAL IV SCH ×3 (05:24→22:01)
[2019-11-16] MEDS: ACCU-CHEK COMFORT CURVE STRIP VI SCH ×2 (05:24→17:51)
[2019-11-16] MEDS: InsuLIN REG 1unit/0.01ml Soln (100units/ml) SC SCH ×2 (05:25→17:52)
[2019-11-16] MEDS: IPRATROPIUM BROM 0.5 MG/2.5ML INH SOL NEB SCH ×3 (05:42→22:05)
[2019-11-16] MEDS: ALBUTEROL SULF 2.5 MG/0.5ML(0.5%) NEB SOLN NEB SCH ×3 (05:42→22:05)
--- NOTE | 2019-11-16 08:28 | NUR ---
Dr. Newby beside updated on status, no new orders.
[2019-11-16] MEDS ORDERED: BENZOCAINE (DENTAL) 20 % SPRAY 60ML MT ONE (08:46)
[2019-11-16] MEDS ORDERED: LIDOCAINE 2%HCL (LOCAL ANESTH.) INJ 20ML MDV ONE (08:46)
[2019-11-16] MEDS ORDERED: EPINEPHrine HCL 1 MG/1 ML AMP ONE (08:46)
[2019-11-16] MEDS ORDERED: SODIUM CHLORIDE LOCK 0 ML ONE (08:46)
[2019-11-16] MEDS ORDERED: diphenhdrAMINE HCL 50 MG/1 ML VL ONE (08:47)
[2019-11-16] MEDS ORDERED: GLYCOPYRROLATE 0.2 MG/ML 1ML VIAL ONE (08:47)
[2019-11-16] MEDS ORDERED: fentaNYL CITRATE 100 MCG/2 ML VL ONE (08:47)
[2019-11-16] MEDS ORDERED: MIDAZOLAM HCL 5 MG/ML-1ML VIAL ONE (08:47)
[2019-11-16] MEDS ORDERED: LIDOCAINE HCL 2% TOP JELLY 5ML TOP ONE (08:47)
--- NOTE | 2019-11-16 09:11 | NUR ---
[facility] updated on status over phone.
[2019-11-16] MEDS: BUMETANIDE 2.5mg/10ml (0.25 mg/ml) INJ IV SCH (10:49)
[2019-11-16] MEDS: PANTOPRAZOLE 40 MG/10 ML VIAL INJ IV SCH (10:49)
[2019-11-16] MEDS: ENOXAPARIN SOD 40 MG/0.4 ML SYRINGE SC SCH (10:49)
--- NOTE | 2019-11-16 11:29 | NUR ---
Nutrition Followup Notes wt: 156.6 kg Pt`s intubated, sedated with propofol running at 43.545 ml/hr, providing 1150 additional kcals from lipids. Pt is currently NPO, on TPN support @ 75 ml/hr providing 1500 kcals and 120 gm proteins 1020 NCP. Pt with adequate energy intake from PN support aeb 117-147% of est caloric needs. Protein intake from PN support is fair aeb 65-82% protein needs. (Note total kcals from current rate of propofol plus PN support meets estimated caloric needs. Will continue to monitor NPO status, skin status, pertinent labs and weight trends. Will f/u in 2-3 days. Est Energy needs: 5389-9579 kcals (12-15 kcal/kgBW), Est Protein needs: 145-182 gms/day (2.0-2.5 gm/kgIBW) d/t pt adiposity. Will continue to monitor and reassess prn. LABS: ALB 2.0 L, GLU 129 H, BUN 21 H GI: Pt with gastric drainage 300 ml on yesterday per RN doc. BS: 14 high risk. Please refer to wound assessment report for full details. PES: 1) Increased nutrient needs aeb pt is sedated, intubated, NPO r/t pt with no PO intake 2) Obesity aeb 206% IBW and BMI of 48.8 kg/m2 r/t energy intake in excess of energy needs 3) Altered nutrient related lab values hypernatremia, chloremia, eleb CO2, hyperglycemia, eleb Bili, elev Trigly, mod hypoalbuminemia r/t current medical condition Comments 1) Continue to closely monitor pt NPO status. 2) Advanced PN support to meet > 75% of needs . 3) Gradually advance pt to oral diet when medically feasible and as tolerated. 4) Refer pt to RD for nutrition education upon D/C. 5) Continue current plan of care
--- NOTE | 2019-11-16 12:30 | NUR ---
Dr. Centeno bedside for Bronchoscopy. New order to CPAP at 0800 11/16
--- NOTE | 2019-11-16 14:53 | NUR ---
UNABLE TO TRANSPORT PT TO CT AT THIS TIME, PER RN PT IS NOT STABLE.
--- NOTE | 2019-11-16 19:45 | NUR ---
OBTAINED CONSENT FOR CT WITH CONTRAST FROM MOISES (SISTER)
--- NOTE | 2019-11-16 19:45 | NUR ---
OPENING NOTE: INTUBATED AND SEDATED. GROSSLY UNRESPONSIVE, GRIMACES WITH PAINFUL STIMULI. NSR, HR 80s. SBP 120-140. 8.0 ETT, 26 AT THE LIP. LS WITH WHEEZES THROUGHOUT, DIMINISHED TO BASES. SpO2 LOW 90s. ABD VERY LARGE, DISTENDED. HYPOACTIVE BS. UNKNOWN LBM. NGT TO LIS, DARK BILIOUS OUTPUT. GABRIEL PATENT WITH DARK MONSERRAT/GREEN URINE. SKIN GROSSLY INTACT, CALLOUSED HANDS AND FEET. LEFT IJ TLC, CDI, WITHOUT BLOOD RETURN. REINFORCED POC. MAINTAINED PATIENT SAFETY: BED LOCKED AND IN THE LOWEST POSITION. FREQUENT VISUAL CHECKS. WILL CONT CARE
[2019-11-16] MEDS ORDERED: TPN PER PHARMACY IV NR ×9 (20:00)
--- NOTE | 2019-11-16 20:00 | NUR ---
REINA, STAFF RADIOGRAPHER, MADE AWARE OF ORDER FOR CT
--- NOTE | 2019-11-16 20:30 | NUR ---
Report given to ROSE Voss
--- NOTE | 2019-11-16 21:15 | NUR ---
SENT URINE SPECIMEN FOR ORDERED DRUG SCREEN
--- NOTE | 2019-11-16 22:00 | NUR ---
UNABLE TO TAKE TO CT AT THIS TIME: INTERMITTENT HIGH PRESSURING OF THE VENTILATOR, INCREASED FiO2, ABDOMINAL BREATHING. WILL REASSESS SAFETY FOR TRANSPORT.
[2019-11-16] MEDS: fentaNYL Drip 2500mCg/250mlNS 250 ML IV SCH (23:40)
[2019-11-17] VITALS (98 sets, daily range): BP systolic 85–160; BP diastolic 43–97
[2019-11-17] MEDS: ACCU-CHEK COMFORT CURVE STRIP VI SCH ×5 (00:06→23:38)
--- NOTE | 2019-11-17 00:14 | NUR ---
UNSTABLE TO TAKE TO CT AT THIS TIME: REMAINS INTERMITTENTLY HIGH PRESSURING THE VENTILATOR, SATURATION FLUCTUATES IN LOW 90s, AND ABDOMINAL BREATHING - WILL INFORM CUPROUS CHLORIDE HELPER, AND REASSESS SAFETY FOR TRANSPORT TO CT
[2019-11-17] MEDS: NOREPINEPHRINE 8 MG/250ML KIT 250 ML IV SCH (00:24)
[2019-11-17] MEDS: PROPOFOL 100 ML IV SCH ×12 (00:40→22:52)
[2019-11-17] MEDS: LINEZOLID 600MG/300ML 300 ML IV SCH ×2 (01:08→12:31)
--- NOTE | 2019-11-17 01:14 | NUR ---
CALLED CT - PER RADIOLOGY, WILL BE READY FOR PATIENT AFTER 129 REINA, ATTRACTION WORKER AWARE
--- NOTE | 2019-11-17 01:15 | NUR ---
GABRIEL BAG LEAKING - CHANGED BAG VIA STERIL TECHNIQUE
[2019-11-17] MEDS ORDERED: IOHEXOL 300 MG/ML 100ML BOTTLE IJ ONE (01:43)
--- NOTE | 2019-11-17 01:43 | NUR ---
LEFT WITH EVA HUANG RN, RAZ MANZANO, AND CHIKIS ARREAGA
[2019-11-17] MEDS: MIDAZOLAM DRIP 50 mg/50mL 50 ML IV SCH ×6 (02:20→21:23)
--- NOTE | 2019-11-17 02:20 | NUR ---
RETURNED FROM CT
--- NOTE | 2019-11-17 02:30 | NUR ---
NOTED TO BE HIGH PRESSURING, ABDOMINAL BREATHING, AND DESATURATING - WILL HOLD SEDATION WEANING AT THIS TIME
--- NOTE | 2019-11-17 02:30 | NUR ---
PARTIAL BED BATH, AND FULL LINEN CHANGE COMPLETED
[2019-11-17 03:52] LABS: Alcohol, Urine < 3.0 mg/dL (0-10); Amphetamine Screen, Urine NEGATIVE (NEGATIVE); Barbiturate Scree,Urine NEGATIVE (NEGATIVE); Benzodiazephine Screen, Urine POSITIVE (NEGATIVE); Cannabinoid Screen, Urine POSITIVE (NEGATIVE); Cocaine Screen, Urine NEGATIVE (NEGATIVE); Opiate Scree,Urine NEGATIVE (NEGATIVE); Phencyclidine Screen, Urine NEGATIVE (NEGATIVE)
--- NOTE | 2019-11-17 04:22 | NUR ---
PAGED DR. PRIDE
--- NOTE | 2019-11-17 04:23 | NUR ---
PATIENT ASYNCHRONOUS WITH VENTILATOR DESPITE MAX'D OUT ON ALL SEDATION
[2019-11-17] MEDS: BUMETANIDE 2.5mg/10ml (0.25 mg/ml) INJ IV SCH (04:25)
--- NOTE | 2019-11-17 04:26 | NUR ---
SCHEDULED BUMEX GIVEN EARLY TO SEE IF HELPS WITH HIGH PRESSURING
[2019-11-17 04:39] LABS: Red Cell Distribution Width 17.2 % (11.8-14.3)
[2019-11-17 04:41] LABS: Hematocrit 49.5 % (41.0-53.0); Mean Corpuscular Hemoglobin 27.7 pg (28.0-32.0); Mean Corpuscular Hgb Conc. 32.3 g/dL (32.0-36.0); Mean Corpuscular Volume 85.8 fL (80.0-100.0); Platelet Count (auto) 389 10^3/uL (140-450); Red Blood Cells 5.77 10^6/uL (4.5-5.90)
[2019-11-17 04:54] LABS: INR 1.03 (0.9-1.15); Partial Thromboplastin Time 26.8 sec (23.64-32.05)
[2019-11-17 05:00] LABS: Basophils % (manual) 0 (0.0-2.0); Blast Cells 0; Myelocytes % 0; Promyelocytes % 0; Reactive Lymphocytes 0
[2019-11-17] MEDS: ACETAMINOPHEN 650 mg PER 20 mL UD GT PRN (05:00)
--- NOTE | 2019-11-17 05:00 | NUR ---
TEMP 100.0F - COOLING MEASURES APPLIED
[2019-11-17 05:01] LABS: Calcium 9.4 mg/dL (8.5-10.1)
--- NOTE | 2019-11-17 05:01 | NUR ---
REMAINS ASYNCHRONOUS AND ALARMING THE VENT "HIGH PRESSURE"
--- NOTE | 2019-11-17 05:05 | NUR ---
PAGED DR. PRIDE FOR 2ND TIME
[2019-11-17 05:07] LABS: BUN/Creatinine Ratio 28.7; Bilirubin, Total 0.9 mg/dL (0.2-1.0); Magnesium 2.2 mg/dL (1.6-2.6); Phosphorus 5.7 mg/dL (2.5-4.90); Total Protein 8.8 g/dL (6.4-8.2)
[2019-11-17 05:37] LABS: Eosinophils % (manual) 4 (0-7); Lymphocytes % (manual) 12 (10.0-50.0); Metamyelocytes % 2
[2019-11-17 05:38] LABS: Band Neutrophils % (manual) 10; Monocytes % (manual) 8 (0-12)
[2019-11-17] MEDS: InsuLIN REG 1unit/0.01ml Soln (100units/ml) SC SCH ×5 (06:00→23:38)
[2019-11-17] MEDS: IPRATROPIUM BROM 0.5 MG/2.5ML INH SOL NEB SCH ×3 (06:06→22:02)
[2019-11-17] MEDS: ALBUTEROL SULF 2.5 MG/0.5ML(0.5%) NEB SOLN NEB SCH ×3 (06:06→22:01)
[2019-11-17] MEDS: METOCLOPRAMIDE HCL 5MG/ml INJ 2ml VIAL IV SCH ×3 (06:09→21:46)
[2019-11-17] MEDS: PIPERACILLIN-TAZO 4.5GM 100 ML IV SCH ×3 (06:09→21:46)
[2019-11-17] MEDS: fentaNYL Drip 2500mCg/250mlNS 250 ML IV SCH ×2 (06:38→17:49)
--- NOTE | 2019-11-17 06:52 | NUR ---
SPOKE WITH DR. PRIDE: NOTIFIED OF PATIENT'S CONDITION. ORDERS FOR 1 MG ATIVAN IVP Q6HR PRN AND CXR. PER DR. PRIDE NOTIFY DR. VINCENT
[2019-11-17] MEDS: DexMEDEtomidine 400 MCG in D5W 5% 96 ML IV SCH ×2 (08:00→20:47)
--- NOTE | 2019-11-17 08:50 | NUR ---
Respiratory note: DR VINCENT GAVE ORDER TO CHANGE VENT MODE FROM AC, TO PCV WITH SETTINGS OF PC 18 PI 20 I-TIME 1.2 PEEP +8 FIO2 70%. ABG ORDERED FOR NOON POST VENT CHANGES. RN AWARE. WILL CONTINUE TO MONITOR PT.
--- NOTE | 2019-11-17 09:35 | NUR ---
Respiratory note: ULTRA SOUND DONE BY DR VINCENT FOR POSSIBLE THORACENTESIS. SMALL BILATERAL PLEURAL EFFUSION VISIBLE, HOWEVER DR VINCENT STATED THERE WASN'T ENOUGH FLUID TO TAP. ROSE CHRISTOPHER, AND ROSE RILEY AT BEDSIDE. WILL CONTINUE TO MONITOR PT.
[2019-11-17] MEDS: PANTOPRAZOLE 40 MG/10 ML VIAL INJ IV SCH (10:21)
--- NOTE | 2019-11-17 12:00 | NUR ---
Respiratory note: FIO2 TITRATED FROM 70%. TO 65% FIO2. RN AWARE.
--- NOTE | 2019-11-17 12:42 | NUR ---
CRITICAL ABG VALUES READ BACK TO DR VINCENT. ORDERS WERE GIVEN TO INCREASE RR FROM 18 TO 24, PT TOLERATING CHANGE WELL. ABG ORDERED FOR TOMORROW MORNING. WILL CONTINUE TO MONITOR PT.
--- NOTE | 2019-11-17 14:40 | NUR ---
Resumed care at 0725, orders reviewed and ongoing assessments being done. Being treated for multiple problems and remains intubated and sedated. Does withdraw upon deep tactile stimulation but not opening eyes at this time. No sedation vacation today due to changes in ventilator mode. Pressure control ventilation now. Fio2 has remained 65-70%. Dr. Elizabeth, international marketing intern rounded at 1030. Reviewed all data and images. Per CT scan, noted pleural effusions, greater on right side. Dr. Elizabeth utilized the bedside ultrasound. Not enough fluid for thoracentesis. Ventilators changes being done by Alison Rob, hospitalist rounded at 1345. Discussed condition and plan of care. Continue to utilized cooling measures for fever. Cooling blanket, ice packs and cool compress over forehead. Spoke to sister Elle via phone earlier today.
--- NOTE | 2019-11-17 16:05 | NUR ---
Respiratory note: TRANSPORTED TO CT VIA TRANSPORT VENT WITHOUT INCIDENT. RN/TECH AT BEDSIDE. Addendum: 11/17/19 at [facility] by RT RAFA RT CHARTED ON INCORRECT PT. DISREGARD.
--- NOTE | 2019-11-17 16:30 | NUR ---
Respiratory note: PT TRANSPORTED FROM CT BACK TO ICU 102 WITHOUT INCIDENT. RN/TECH AT BED SIDE. WILL CONTINUE TO MONITOR PT. Addendum: 11/17/19 at 1640 by RT RAFA RT CHARTED ON INCORRECT PT. DISREGARD.
[2019-11-17] MEDS: TPN PER PHARMACY IV NR ×8 (19:23)
--- NOTE | 2019-11-17 19:30 | NUR ---
OPENING NOTE: INTUBATED AND SEDATED. GROSSLY UNRESPONSIVE, GRIMACES WITH PAINFUL STIMULI. NSR, HR 80s. SBP 110-120. 8.0 ETT, 26 AT THE LIP. LS COARSE THROUGHOUT, DIMINISHED TO BASES. SpO2 MID 90s. ABD VERY LARGE, DISTENDED. HYPOACTIVE BS. UNKNOWN LBM. OGT TO LIS, DARK BILIOUS OUTPUT. GABRIEL PATENT WITH DARK MONSERRAT/GREEN URINE. SKIN GROSSLY INTACT, CALLOUSED HANDS AND FEET. LEFT IJ TLC, CDI, WITHOUT BLOOD RETURN. REINFORCED POC. MAINTAINED PATIENT SAFETY: BED LOCKED AND IN THE LOWEST POSITION. FREQUENT VISUAL CHECKS. WILL CONT CARE
[2019-11-17] MEDS: LORazepam 2MG/ML-1ML VIAL IV PRN (20:32)
--- NOTE | 2019-11-17 20:32 | NUR ---
NOTED WITH SHIVERING/TREMORS - ATIVAN PRN GIVEN
--- NOTE | 2019-11-17 21:00 | NUR ---
SHIVERING/TREMORS RESOLVED
--- NOTE | 2019-11-17 22:01 | NUR ---
CENTRAL LINE DRESSING CHANGED VIA STERILE TECHNIQUE
--- NOTE | 2019-11-17 23:30 | NUR ---
RECTAL TEMP 98.1F - WARMING MEASURES APPLIED WITH WARMING OVERHEAD LAMP, AND WARM BLANKET
[2019-11-18] VITALS (106 sets, daily range): BP systolic 95–156; BP diastolic 42–94
[2019-11-18] MEDS: NOREPINEPHRINE 8 MG/250ML KIT 250 ML IV SCH (00:24)
[2019-11-18] MEDS: LINEZOLID 600MG/300ML 300 ML IV SCH ×2 (00:50→12:59)
[2019-11-18] MEDS: PROPOFOL 100 ML IV SCH ×11 (00:52→23:22)
[2019-11-18] MEDS: MIDAZOLAM DRIP 50 mg/50mL 50 ML IV SCH ×6 (00:52→23:22)
--- NOTE | 2019-11-18 01:45 | NUR ---
TEMP UP TO 99.1F - TURNED OF WARMING MEASURES
--- NOTE | 2019-11-18 04:19 | NUR ---
BED BATH WITH CHG WIPES, MATA CARE, GABRIEL CARE, ORAL CARE, HAIR CARE, AND PARTIAL LINEN CHANGE COMPLETED
--- NOTE | 2019-11-18 04:20 | NUR ---
PATIENT DESATURATED DOWN TO 90% AFTER LINEN CHANGE
[2019-11-18 04:43] LABS: Hemoglobin 13.6 g/dL (13.5-17.5); Mean Corpuscular Hemoglobin 27.4 pg (28.0-32.0); Mean Corpuscular Hgb Conc. 32.5 g/dL (32.0-36.0); Mean Corpuscular Volume 84.4 fL (80.0-100.0); Platelet Count (auto) 355 10^3/uL (140-450); Red Blood Cells 4.97 10^6/uL (4.5-5.90); Red Cell Distribution Width 17.2 % (11.8-14.3); White Blood Cell 6.6 10^3/uL (4.4-10.8)
[2019-11-18 04:51] LABS: INR 1.06 (0.9-1.15); Partial Thromboplastin Time 28.3 sec (23.64-32.05)
[2019-11-18 04:55] LABS: Calcium 8.7 mg/dL (8.5-10.1); Magnesium 2.3 mg/dL (1.6-2.6); Potassium 4.6 mmol/L (3.5-5.1)
[2019-11-18 05:02] LABS: BUN/Creatinine Ratio 43.8; Bilirubin, Total 0.8 mg/dL (0.2-1.0); Phosphorus 4.2 mg/dL (2.5-4.90); Total Protein 7.5 g/dL (6.4-8.2)
[2019-11-18 05:12] LABS: Basophils % (manual) 0 (0.0-2.0); Blast Cells 0; Metamyelocytes % 0; Myelocytes % 0; Promyelocytes % 0; Reactive Lymphocytes 0
[2019-11-18 05:23] LABS: Albumin 1.8 g/dL (3.4-5.0)
[2019-11-18] MEDS: PIPERACILLIN-TAZO 4.5GM 100 ML IV SCH ×3 (05:31→21:50)
[2019-11-18] MEDS: METOCLOPRAMIDE HCL 5MG/ml INJ 2ml VIAL IV SCH ×3 (05:31→21:50)
[2019-11-18] MEDS: fentaNYL Drip 2500mCg/250mlNS 250 ML IV SCH ×2 (05:34→17:52)
[2019-11-18 05:48] LABS: Band Neutrophils % (manual) 3; Eosinophils % (manual) 4 (0-7); Lymphocytes % (manual) 15 (10.0-50.0); Monocytes % (manual) 8 (0-12)
--- NOTE | 2019-11-18 05:56 | NUR ---
TEMP DOWN TO 98.2F -COVERED WITH BLANKET
[2019-11-18] MEDS: InsuLIN REG 1unit/0.01ml Soln (100units/ml) SC SCH ×4 (06:00→23:38)
[2019-11-18] MEDS: ALBUTEROL SULF 2.5 MG/0.5ML(0.5%) NEB SOLN NEB SCH ×4 (06:00→22:06)
[2019-11-18] MEDS: IPRATROPIUM BROM 0.5 MG/2.5ML INH SOL NEB SCH ×4 (06:00→22:06)
--- NOTE | 2019-11-18 06:00 | NUR ---
Respiratory note: PT RECEIVED ON VENT # V6, PLUGGED INTO A RED OUTLET AND PROPER O2 SOURCE.AMBU BAG AT BEDSIDE. ALARMS ARE PROPERLY SET,FUNCTIONING,AND AUDIBLE. ETT SECURED WITH A HOLISTER AND MOVED TO THE RIGHT. NO LIP BREAKDOWN NOTED AT THIS TIME.BILATERAL BS REVEAL IE WHEEZES. MED NEB TX GIVEN INLINE,TOLERATED WELL. SKIN IS WARM AND DRY TO THE TOUCH WITH EDEMA NOTED BILATERALLY ON ALL APPENDICULARS.POC:MAINTAIN ADEQUATE OXYGENATION,VENTILATION,AND PULMONARY HYGIENE.
[2019-11-18] MEDS: ACCU-CHEK COMFORT CURVE STRIP VI SCH ×4 (06:16→23:38)
--- NOTE | 2019-11-18 09:32 | NUR ---
Spoke to patient's sister Elle over the phone. Updated on patient's status and POC, verbalized understanding. All questions and concerns addressed.
[2019-11-18] MEDS: DexMEDEtomidine 400 MCG in D5W 5% 96 ML IV SCH ×4 (09:34→20:58)
[2019-11-18] MEDS: PANTOPRAZOLE 40 MG/10 ML VIAL INJ IV SCH (09:57)
[2019-11-18] MEDS: BUMETANIDE 2.5mg/10ml (0.25 mg/ml) INJ IV SCH (09:58)
--- NOTE | 2019-11-18 10:30 | NUR ---
Patient saturation decreased to 87% to 89%, RR 24 to 28, Rohini RT at bedside, FIO2 increased to 100%, saturation 90%. Will continue to monitor. Will inform MD.
--- NOTE | 2019-11-18 14:15 | NUR ---
Patient's temperature 100F rectally, cooling measures done. Will continue to monitor.
--- NOTE | 2019-11-18 14:30 | NUR ---
Respiratory note: PEEP INCREASED TO [address] VINCENT. ROSE ALDRICH AWARE OF CHANGE.
--- NOTE | 2019-11-18 14:42 | NUR ---
Dr Espino at bedside, updated on patient's status. Verbalized understanding and gave orders to increase PEEP from 8 to 10. Rohini ARREAGA at bedside. New orders carried out.
--- NOTE | 2019-11-18 14:45 | NUR ---
Spoke to Dr Rob over the phone, updated on patient's status. Verbalized understanding and gave orders to consult Dr Brown for Tracheostomy and and PEG placement. Orders read back and verified. Will carry out new orders.
--- NOTE | 2019-11-18 15:21 | NUR ---
Respiratory note: VENT CHANGES MADE BY DR VINCENT PCV RR 24, PI 24, I TIME 1.3, PEEP 10. OR PAGED FOR BRONCHOSCOPY. Addendum: 11/18/19 at 1653 by LASHONDA MATSON RT 1530 I TIME ORDER CHANGED TO 0.8 FOLLOW UP ABG IN THE MORNING.
[2019-11-18] MEDS ORDERED: LIDOCAINE 2%HCL (LOCAL ANESTH.) INJ 20ML MDV ONE (16:01)
[2019-11-18] MEDS ORDERED: SODIUM CHLORIDE LOCK 0 ML ONE (16:01)
[2019-11-18] MEDS ORDERED: EPINEPHrine HCL 1 MG/1 ML AMP ONE (16:01)
[2019-11-18] MEDS ORDERED: LIDOCAINE HCL 2% TOP JELLY 5ML TOP ONE (16:01)
--- NOTE | 2019-11-18 17:45 | NUR ---
Bronchoscopy done at bedside that started at 1739, findings of bilateral lower lobe mucous plugging. Brochial washing done. Patient tolerated procedure well. Will continue to monitor.
[2019-11-18] MEDS: ACETYLCYSTEINE 10 %(100MG/ML) SOL 4ML NEB SCH ×2 (18:26→22:07)
[2019-11-18] MEDS: TPN PER PHARMACY IV NR ×8 (19:45)
--- NOTE | 2019-11-18 19:45 | NUR ---
OPENING NOTE: INTUBATED AND SEDATED. UNRESPONSIVE, NO RESPONSE TO NOXIOUS STIMULI. NSR, HR 70S SBP 110-120. 8.0 ETT, 26 AT THE LIP. LS COARSE THROUGHOUT, DIMINISHED TO BASES. SpO2 MID 90s. ABD VERY LARGE, DISTENDED. HYPOACTIVE BS. UNKNOWN LBM. OGT TO LIS, DARK BILIOUS OUTPUT. GABRIEL PATENT WITH DARK MONSERRAT/GREEN URINE. SKIN GROSSLY INTACT, CALLOUSED HANDS AND FEET. LEFT IJ TLC, CDI, WITHOUT BLOOD RETURN. REINFORCED POC. MAINTAINED PATIENT SAFETY: BED LOCKED AND IN THE LOWEST POSITION. FREQUENT VISUAL CHECKS. WILL CONT CARE
[2019-11-18] MEDS ORDERED: TPN PER PHARMACY IV NR ×8 (20:00)
--- NOTE | 2019-11-18 21:22 | NUR ---
PATIENT'S SISTER CALLED WRAPPER HAND: AFTER PASSWORD CONFIRMED, UPDATED ON STATUS. MADE AWARE OF POSSIBLE TRACHEOSTOMY. SISTER VERBALIZED UNDERSTANDING, AND ALL QUESTIONS ANSWERED ABLE
[2019-11-19] VITALS (98 sets, daily range): BP systolic 97–147; BP diastolic 49–96
[2019-11-19] MEDS: NOREPINEPHRINE 8 MG/250ML KIT 250 ML IV SCH ×2 (00:24→23:53)
--- NOTE | 2019-11-19 00:46 | NUR ---
PATIENT WOKE UP, SHIVERING, DESATURATION DOWN TO 84% - INCREASED PRECEDEX GTT
[2019-11-19] MEDS: LINEZOLID 600MG/300ML 300 ML IV SCH ×2 (01:00→13:53)
[2019-11-19] MEDS: PROPOFOL 100 ML IV SCH ×10 (01:36→23:25)
--- NOTE | 2019-11-19 02:05 | NUR ---
STILL NOTED WITH SHIVERING THAT RESULTS IN DECREASED TIDAL VOLUMES, AND DESATURATION - INCREASED PRECEDEX GTT
[2019-11-19] MEDS: ALBUTEROL SULF 2.5 MG/0.5ML(0.5%) NEB SOLN NEB SCH ×6 (02:14→22:10)
[2019-11-19] MEDS: ACETYLCYSTEINE 10 %(100MG/ML) SOL 4ML NEB SCH ×6 (02:15→22:10)
[2019-11-19] MEDS: IPRATROPIUM BROM 0.5 MG/2.5ML INH SOL NEB SCH ×6 (02:15→22:09)
--- NOTE | 2019-11-19 02:30 | NUR ---
CENTRAL LINE DRESSING CHANGED VIA STERILE TECHNIQUE
--- NOTE | 2019-11-19 03:00 | NUR ---
PATIENT WITH BRADYCARDIA AND 1ST DEGREE AVB - 12 LEAD EKG AND PRECEDEX STOPPED
--- NOTE | 2019-11-19 03:39 | NUR ---
BED BATH WITH CHG WIPES, MATA CARE, GABRIEL CARE, ORAL CARE, AND PARTIAL LINEN CHANGE COMPLETED
--- NOTE | 2019-11-19 03:40 | NUR ---
MOVED RECTAL PROBE LOCATION TO PREVENT DTI/PRESSURE ULCER
[2019-11-19] MEDS: MIDAZOLAM DRIP 50 mg/50mL 50 ML IV SCH ×4 (03:47→22:54)
[2019-11-19 05:13] LABS: Potassium 4.4 mmol/L (3.5-5.1)
[2019-11-19 05:20] LABS: BUN/Creatinine Ratio 41.1; Bilirubin, Total 0.8 mg/dL (0.2-1.0); Calcium 8.9 mg/dL (8.5-10.1); Magnesium 2.1 mg/dL (1.6-2.6); Phosphorus 2.3 mg/dL (2.5-4.90); Total Protein 7.6 g/dL (6.4-8.2)
[2019-11-19] MEDS: fentaNYL Drip 2500mCg/250mlNS 250 ML IV SCH (05:50)
[2019-11-19] MEDS: ACCU-CHEK COMFORT CURVE STRIP VI SCH ×4 (05:51→23:25)
[2019-11-19] MEDS: METOCLOPRAMIDE HCL 5MG/ml INJ 2ml VIAL IV SCH ×3 (05:51→22:01)
[2019-11-19] MEDS: InsuLIN REG 1unit/0.01ml Soln (100units/ml) SC SCH ×4 (05:51→23:25)
[2019-11-19] MEDS: PIPERACILLIN-TAZO 4.5GM 100 ML IV SCH ×3 (05:51→22:01)
--- NOTE | 2019-11-19 07:30 | NUR ---
REPORT AND CARE ENDORSED TO ROSE LITTLE
--- NOTE | 2019-11-19 07:30 | NUR ---
REPORT RECEIVED ASSUMING CARE.
--- NOTE | 2019-11-19 09:00 | NUR ---
INCREASED FIO2 TO 70% POST AM ABG RESULTS. SPO2 97% AFTER CHANGE. ROSE NELSON.
--- NOTE | 2019-11-19 09:06 | NUR ---
Nutrition Followup Notes wt: 156.0 kg Pt`s intubated, sedated with propofol running at 43.545 ml/hr, providing 1150 additional kcals from lipids. Pt is currently NPO, on TPN support @ 77 ml/hr providing 1370 kcals and 130 gm proteins 850 NCP. Pt with adequate energy intake from PN support + current propofol rate aeb 112-140% of est caloric needs. Protein intake from PN support meets 71-89% of est protein needs. Will continue to monitor NPO status, skin status, pertinent labs and weight trends. Will f/u in 2-3 days. Est Energy needs: 4469-6681 kcals (12-15 kcal/kgBW), Est Protein needs: 145-182 gms/day (2.0-2.5 gm/kgIBW) d/t pt adiposity. Will continue to monitor and reassess prn. LABS: ALB 2.0 L, GLU 119 H GI: Pt with gastric drainage 450 ml on yesterday per RN doc. BS: 14 high risk. Please refer to wound assessment report for full details. PES: 1) Increased nutrient needs aeb pt is sedated, intubated, NPO r/t pt with no PO intake 2) Obesity aeb 206% IBW and BMI of 48.8 kg/m2 r/t energy intake in excess of energy needs 3) Altered nutrient related lab values hypernatremia, chloremia, eleb CO2, hyperglycemia, eleb Bili, elev Trigly, mod hypoalbuminemia r/t current medical condition Comments 1) Continue to closely monitor pt NPO status. 2) Advanced PN support to meet > 75% of needs . 3) Gradually advance pt to oral diet when medically feasible and as tolerated. 4) Refer pt to RD for nutrition education upon D/C. 5) Continue current plan of care
[2019-11-19] MEDS ORDERED: SODIUM PHOSPHATES 20 MEQ in SODIUM CHL 0.9% 100 ML IV ONE (10:30)
[2019-11-19] MEDS ORDERED: PROPOFOL 100 ML IV ONE (10:34)
[2019-11-19] MEDS: BUMETANIDE 2.5mg/10ml (0.25 mg/ml) INJ IV SCH (10:49)
[2019-11-19] MEDS: PANTOPRAZOLE 40 MG/10 ML VIAL INJ IV SCH (10:49)
--- NOTE | 2019-11-19 12:15 | NUR ---
DR VINCENT AT BEDSIDE. STATES PAO2 ACCEPTABLE RANGE ON THIS AM ABG. I TITRATED FIO2 TO 65% AT THIS TIME. SPO2 97%.
--- NOTE | 2019-11-19 16:07 | NUR ---
DR PRIDE AT BEDSIDE, EXAMINED PATIENT, DR GAVE ORDER TO INSERT RECTAL TUBE.
--- NOTE | 2019-11-19 16:35 | NUR ---
RECTAL TUBE INSERTED AFTER DR ORDER, NO AIR/STOOL IN BAG UPON INSERTION. PATIENT TOLERATED WELL. REMOVED RECTAL TEMPERATURE PROBE PRIOR TO INSERTION.
[2019-11-19] MEDS: LORazepam 2MG/ML-1ML VIAL IV PRN (19:50)
--- NOTE | 2019-11-19 19:50 | NUR ---
WAKING UP, SHIVERING/TREMORS, DESATURATION - ATIVAN PRN GIVEN
[2019-11-19] MEDS ORDERED: TPN PER PHARMACY IV NR ×9 (20:00)
--- NOTE | 2019-11-19 20:30 | NUR ---
MORE RELAXED - VSS
--- NOTE | 2019-11-19 21:55 | NUR ---
UNABLE TO COMPLETE SEDATION VACATION AT THIS TIME: RESPIRATORY STATUS FRAGILE Addendum: 11/19/19 at 2156 by Shanika Knight RN RN Amended: Links added.
[2019-11-19] MEDS: DexMEDEtomidine 400 MCG in D5W 5% 96 ML IV SCH (23:29)
--- NOTE | 2019-11-19 23:30 | NUR ---
PATIENT CONTINUES TO HAVE INTERMITTENT SHIVERING/TREMORS THAT RESULTS IN DESATURATION - STARTED PRECEDEX GTT
[2019-11-20] VITALS (93 sets, daily range): BP systolic 98–137; BP diastolic 43–87
--- NOTE | 2019-11-20 | NUR ---
SHIVERING/TREMORS SUBSIDED
--- NOTE | 2019-11-20 00:10 | NUR ---
TRENDING DESATURATION AND LOWER TIDAL VOLUMES (COMPARED TO YESTERDAY AND EARLIER TODAY) - CHIKIS RT AWARE
--- NOTE | 2019-11-20 00:30 | NUR ---
TIDAL VOLUME IMPROVING
[2019-11-20] MEDS: LINEZOLID 600MG/300ML 300 ML IV SCH ×2 (00:56→12:25)
[2019-11-20] MEDS: PROPOFOL 100 ML IV SCH ×10 (01:25→22:20)
[2019-11-20] MEDS: ACETYLCYSTEINE 10 %(100MG/ML) SOL 4ML NEB SCH ×6 (02:06→22:32)
[2019-11-20] MEDS: ALBUTEROL SULF 2.5 MG/0.5ML(0.5%) NEB SOLN NEB SCH ×6 (02:06→22:32)
[2019-11-20] MEDS: IPRATROPIUM BROM 0.5 MG/2.5ML INH SOL NEB SCH ×6 (02:06→22:32)
[2019-11-20] MEDS: MIDAZOLAM DRIP 50 mg/50mL 50 ML IV SCH ×6 (03:45→22:39)
--- NOTE | 2019-11-20 03:50 | NUR ---
20 G PIV STARTED TO RIGHT FOREARM FOR ANTICIPATED SURGERY
[2019-11-20 04:35] LABS: Hematocrit 42.7 % (41.0-53.0); Mean Corpuscular Hemoglobin 27.3 pg (28.0-32.0); Mean Corpuscular Hgb Conc. 32.7 g/dL (32.0-36.0); Mean Corpuscular Volume 83.5 fL (80.0-100.0); Platelet Count (auto) 346 10^3/uL (140-450); Red Blood Cells 5.11 10^6/uL (4.5-5.90); Red Cell Distribution Width 17.2 % (11.8-14.3); White Blood Cell 6.5 10^3/uL (4.4-10.8)
[2019-11-20 04:56] LABS: Calcium 8.7 mg/dL (8.5-10.1); Potassium 3.3 mmol/L (3.5-5.1)
[2019-11-20 04:59] LABS: INR 1.06 (0.9-1.15); Partial Thromboplastin Time 26.9 sec (23.64-32.05)
[2019-11-20 05:02] LABS: BUN/Creatinine Ratio 31.8; Bilirubin, Total 0.7 mg/dL (0.2-1.0); Phosphorus 3.9 mg/dL (2.5-4.90); Total Protein 7.5 g/dL (6.4-8.2)
[2019-11-20 05:15] LABS: Basophils % (manual) 0 (0.0-2.0); Blast Cells 0; Metamyelocytes % 0; Myelocytes % 0; Promyelocytes % 0; Reactive Lymphocytes 0
--- NOTE | 2019-11-20 05:24 | NUR ---
BED BATH WITH CHG WIPES, MATA CARE, GABRIEL CARE, ORAL CARE, AND FULL LINEN CHANGE COMPLETED
[2019-11-20] MEDS ORDERED: POTASSIUM CHL 20MEQ/100ML 100 ML IV ONE (05:32)
[2019-11-20] MEDS: METOCLOPRAMIDE HCL 5MG/ml INJ 2ml VIAL IV SCH ×3 (05:41→21:07)
[2019-11-20] MEDS: POTASSIUM CHL 20MEQ/100ML 100 ML IV SCH ×2 (05:41→06:39)
[2019-11-20] MEDS: PIPERACILLIN-TAZO 4.5GM 100 ML IV SCH ×3 (05:41→22:26)
[2019-11-20] MEDS: InsuLIN REG 1unit/0.01ml Soln (100units/ml) SC SCH ×4 (05:41→23:42)
[2019-11-20] MEDS: ACCU-CHEK COMFORT CURVE STRIP VI SCH ×4 (05:41→23:41)
[2019-11-20 06:00] LABS: Band Neutrophils % (manual) 6; Eosinophils % (manual) 4 (0-7); Lymphocytes % (manual) 16 (10.0-50.0); Monocytes % (manual) 8 (0-12)
[2019-11-20] MEDS: fentaNYL Drip 2500mCg/250mlNS 250 ML IV SCH ×2 (06:40→17:21)
--- NOTE | 2019-11-20 07:12 | NUR ---
REPORT AND CARE ENDORSED TO ROSE ALDRICH
[2019-11-20] MEDS: BUMETANIDE 2.5mg/10ml (0.25 mg/ml) INJ IV SCH (09:24)
[2019-11-20] MEDS: PANTOPRAZOLE 40 MG/10 ML VIAL INJ IV SCH (09:24)
--- NOTE | 2019-11-20 10:25 | NUR ---
Dr Brown at bedside, updated on patient's status. Patient seen and examined. Dr Brown states "I can't do the tracheostomy on this patient, cancel the procedure." Read back and verified.
[2019-11-20] MEDS ORDERED: POTASSIUM CHL 20MEQ/100ML 100 ML IV SCH (10:45)
[2019-11-20] MEDS: DexMEDEtomidine 400 MCG in D5W 5% 96 ML IV SCH (12:42)
--- NOTE | 2019-11-20 13:35 | NUR ---
Received call from patient's sister Elle who's able to provide password. Updated on patient's status and POC. Verbalized understanding. All questions and concerns addressed.
--- NOTE | 2019-11-20 15:54 | NUR ---
Dr Emmy Daniel at bedside, updated on patient's status. Patient seen and examined. Will carry out new orders.
--- NOTE | 2019-11-20 17:58 | NUR ---
Respiratory note: RECEIVED PT ON VENT V6. VENT CONNECTED TO RED OUTLET AND O2 SOURCE. ALARMS ARE SET AND AUDIBLE AMBU BAG AND MASK AT BEDSIDE. BS ARE DIMINISHED CLEAR T/O. MED NEB TX GIVEN INLINE VIA AEROGEN. NO ADVERSE REACTION NOTED. WILL CONTINUE TO MONITOR Q2H AND NEEDED.
--- NOTE | 2019-11-20 18:58 | NUR ---
DR Espino at bedside, updated on patient's status. Patient seen and examined. Per Dr Espino., patient is cleared to go to [facility].
[2019-11-20] MEDS ORDERED: TPN*HIGH CONC* PER PHARMACY IV NR ×21 (20:00)
[2019-11-21] VITALS (100 sets, daily range): BP systolic 97–147; BP diastolic 5–100
--- NOTE | 2019-11-21 00:06 | NUR ---
Respiratory note: AT BEDSIDE FOR ROUTINE VENT CHECK. BS ARE COURSE SXD LARGE AMOUNT OF THICK STONE/BROWN BLOOD TINGE. FIO2 HAD TO BE INCREASED TO 70% TO REACH SATS OF AT LEAST 90. ROSE MONTERO COMMUNICATED ON O2 CHANGE. WILL CONTINUE TO MONITOR.
[2019-11-21] MEDS: NOREPINEPHRINE 8 MG/250ML KIT 250 ML IV SCH (00:24)
[2019-11-21] MEDS: LINEZOLID 600MG/300ML 300 ML IV SCH ×2 (01:00→12:27)
[2019-11-21] MEDS: DexMEDEtomidine 400 MCG in D5W 5% 96 ML IV SCH ×2 (01:29→14:11)
[2019-11-21] MEDS: ACETAMINOPHEN 650 mg PER 20 mL UD GT PRN (01:34)
[2019-11-21] MEDS: PROPOFOL 100 ML IV SCH ×10 (01:34→21:37)
[2019-11-21] MEDS: IPRATROPIUM BROM 0.5 MG/2.5ML INH SOL NEB SCH ×6 (02:08→21:56)
[2019-11-21] MEDS: ALBUTEROL SULF 2.5 MG/0.5ML(0.5%) NEB SOLN NEB SCH ×6 (02:08→21:56)
[2019-11-21] MEDS: ACETYLCYSTEINE 10 %(100MG/ML) SOL 4ML NEB SCH ×6 (02:09→21:56)
[2019-11-21] MEDS: MIDAZOLAM DRIP 50 mg/50mL 50 ML IV SCH ×4 (03:33→20:27)
[2019-11-21 05:22] LABS: Magnesium 2.1 mg/dL (1.6-2.6); Potassium 3.5 mmol/L (3.5-5.1)
[2019-11-21 05:29] LABS: Albumin 2.1 g/dL (3.4-5.0); BUN/Creatinine Ratio 29.2; Bilirubin, Total 0.8 mg/dL (0.2-1.0); Calcium 8.8 mg/dL (8.5-10.1); Phosphorus 4.5 mg/dL (2.5-4.90); Total Protein 7.7 g/dL (6.4-8.2)
[2019-11-21] MEDS: PIPERACILLIN-TAZO 4.5GM 100 ML IV SCH ×3 (05:35→21:35)
[2019-11-21] MEDS: METOCLOPRAMIDE HCL 5MG/ml INJ 2ml VIAL IV SCH ×3 (05:35→21:35)
[2019-11-21] MEDS: InsuLIN REG 1unit/0.01ml Soln (100units/ml) SC SCH ×3 (06:00→18:00)
[2019-11-21] MEDS: fentaNYL Drip 2500mCg/250mlNS 250 ML IV SCH ×3 (06:00→16:10)
[2019-11-21] MEDS: ACCU-CHEK COMFORT CURVE STRIP VI SCH ×3 (06:03→18:05)
--- NOTE | 2019-11-21 06:09 | NUR ---
Respiratory note: RECEIVED PT ON VENT V-6 PLUGGED INTO RED OUTLET. ALL VENT ALARMS ARE AUDIBLE, AND FUNCTIONING. AMBU BAG/MASK IS AT BEDSIDE CONNECTED TO AN O2 SOURCE. ETT IS 8.0 @ THE 25 LIP LINE SECURED WITH A KESHAV. MOVED ETT FROM CENTER, TO RIGHT. NO ORAL/SKIN BREAK DOWN NOTED. BS ARE COARSE BILATERALLY. SX FOR SCANT AMOUNT OF STONE SECRETIONS. GAG REFLEX NOTED. MEDNEB TX GIVEN INLINE VIA AEROGEN, WITH NO ADVERSE EFFECTS NOTED. PT IS EDEMAS IN BOTH UPPER, AND LOWER EXTREMITIES. SKIN IS COOL/DRY TO THE TOUCH. NO NEW VENT CHANGES ORDERED AT THIS TIME. WILL CONTINUE TO MONITOR PT. CHARTING COMPLETE FROM OUTSIDE OF PT ROOM.
--- NOTE | 2019-11-21 07:30 | NUR ---
Patient's temperature 100F axillary, cooling measures done. Will continue to monitor.
--- NOTE | 2019-11-21 09:12 | NUR ---
Received call from patient's sister Elle who's able to provide password. Updated on patient's status and POC, verbalized understanding. All questions and concerns addressed.
[2019-11-21] MEDS: BUMETANIDE 2.5mg/10ml (0.25 mg/ml) INJ IV SCH ×2 (09:46→21:35)
[2019-11-21] MEDS: PANTOPRAZOLE 40 MG/10 ML VIAL INJ IV SCH (09:46)
--- NOTE | 2019-11-21 11:34 | NUR ---
Nutrition Followup Notes wt: 156.0 kg Pt`s intubated, sedated with propofol running at 43.545 ml/hr, providing 1150 additional kcals from lipids. Pt is currently NPO, on TPN support @ 77 ml/hr providing 1128 kcals and 170 gm proteins 448 NCP. Pt with adequate energy intake from PN support + current propofol rate aeb 101-126% of est caloric needs. Protein intake from PN support meets 93-117% of est protein needs. Will continue to monitor NPO status, skin status, pertinent labs and weight trends. Will f/u in 2-3 days. Est Energy needs: 6768-3450 kcals (12-15 kcal/kgBW), Est Protein needs: 145-182 gms/day (2.0-2.5 gm/kgIBW) d/t pt adiposity. Will continue to monitor and reassess prn. LABS: BUN 21 H, GLU 115 H, ALB 2.1 L, TG 317 H GI: Pt with gastric drainage 300 ml on yesterday per RN doc. BS: 14 high risk. Please refer to wound assessment report for full details. PES: 1) Increased nutrient needs aeb pt is sedated, intubated, NPO r/t pt with no PO intake 2) Obesity aeb 206% IBW and BMI of 48.8 kg/m2 r/t energy intake in excess of energy needs 3) Altered nutrient related lab values hypernatremia, chloremia, eleb CO2, hyperglycemia, eleb Bili, elev Trigly, mod hypoalbuminemia r/t current medical condition Comments 1) Advanced PN support to meet > 75% of needs. 2) Gradually advance pt to oral diet when medically feasible and as tolerated. 4) Refer pt to RD for nutrition education upon D/C. 5) Continue current plan of care
--- NOTE | 2019-11-21 12:00 | NUR ---
Patient's temperature 99.3 axillary, will continue to monitor.
--- NOTE | 2019-11-21 13:47 | NUR ---
Dr Espino at bedside, updated on patient's status. Patient seen and examined. Received order to increase Bumex to BID. Read back and verified. Will carry out.
--- NOTE | 2019-11-21 14:12 | NUR ---
Spoke to Dr Molina over the phone, updated on patient's status. Per Dr Molina, patient is cleared to transfer to [facility]. Read back and verified.
--- NOTE | 2019-11-21 16:00 | NUR ---
Patient temperature 99.9 axillary, cooling measures done. Will continue to monitor.
--- NOTE | 2019-11-21 18:00 | NUR ---
Patient temperature 99.5F axillary, will continue to monitor.
--- NOTE | 2019-11-21 18:08 | NUR ---
Dr Daniel at bedside, updated on patient's status. Patient seen and examined. Will carry out new orders.
--- NOTE | 2019-11-21 18:18 | NUR ---
RT NOTE RECEIVED PT INTUBATED AND ON VENT #V6 ON STATED SETTINGS WITH HEATED WIRE CIRCUIT. VENT IS PLUGGED TO RED OUTLET. ALARMS ARE ON AND AUDIBLE TO NURSING. AMBU BAG AT BEDSIDE AND CONNECTED TO O2 SOURCE. 8.0 ETT IS SECURED WITH ANCHORFAST AT 24 CM TO THE ORAL RIGHT. BS ARE COARSE. HHN GIVEN INLINE WITH 2.5 MG ALBUTEROL, 0.5 MG ATROVENT AND 1 CC 10% MUCOMYST VIA AEROGEN WITHOUT ADVERSE REACTION NOTED.PT WAS SUCTIONED FOR SCANT RETURN. CONT ORDERED CIRCUIT TEMP 34.2, POX 96% Addendum: 11/21/19 at 1826 by Sophia Green RT Amended: Links added.
--- NOTE | 2019-11-21 18:26 | NUR ---
1800 - 11/21/19 - Faxed to [facility] transfer center at [phone], [facility] transfer center at [phone] and [facility] transfer center at [phone] face sheet, order for transfer to higher level of care. Pending acceptance and bed availability.
--- NOTE | 2019-11-21 18:58 | NUR ---
Covid swab sent to lab
[2019-11-21] MEDS ORDERED: TPN*HIGH CONC* PER PHARMACY IV NR ×6 (20:00)
--- NOTE | 2019-11-21 20:17 | NUR ---
RT NOTE ROUTINE VENT CHECK DONE. PT INTUBATED AND ON VENT #V6 ON STATED SETTINGS WITH HEATED WIRE CIRCUIT. VENT IS PLUGGED TO RED OUTLET. ALARMS ARE ON AND AUDIBLE TO NURSING. AMBU BAG AT BEDSIDE AND CONNECTED TO O2 SOURCE. 8.0 ETT IS SECURED WITH ANCHORFAST AT 24 CM TO THE ORAL RIGHT. PT WAS SUCTIONED FOR SCANT RETURN FROM ETT AND LARGE RETURN ORALLY. WATER LEVEL IS ADEQUATE. CONT ORDERED CIRCUIT TEMP 33.9, POX 96% Addendum: 11/21/19 at 2020 by Sophia Green RT Amended: Links added.
--- NOTE | 2019-11-21 21:57 | NUR ---
RT NOTE ROUTINE VENT CHECK DONE. PT INTUBATED AND ON VENT #V6 ON STATED SETTINGS WITH HEATED WIRE CIRCUIT. VENT IS PLUGGED TO RED OUTLET. ALARMS ARE ON AND AUDIBLE TO NURSING. AMBU BAG AT BEDSIDE AND CONNECTED TO O2 SOURCE. 8.0 ETT IS SECURED WITH ANCHORFAST AT 24 CM TO THE ORAL RIGHT. PT WAS SUCTIONED FOR SCANT RETURN FROM ETT. BILATERAL BS ARE COARSE. HHN GIVEN INLINE WITH 2.5 MG ALBUTEROL, 0.5 MG ATROVENT AND 1CC 10% MUCOMYST VIA AEROGEN WITHOUT ADVERSE REACTION NOTED. WATER LEVEL IS ADEQUATE. CONT ORDERED CIRCUIT TEMP 33.9, POX 93% Addendum: 11/21/19 at 2203 by Sophia Green RT Amended: Links added.
[2019-11-22] VITALS (105 sets, daily range): BP systolic 94–131; BP diastolic 43–88
--- NOTE | 2019-11-22 00:07 | NUR ---
RT NOTE ROUTINE VENT CHECK DONE. PT INTUBATED AND ON VENT #V6 ON STATED SETTINGS WITH HEATED WIRE CIRCUIT. VENT IS PLUGGED TO RED OUTLET. ALARMS ARE ON AND AUDIBLE TO NURSING. AMBU BAG AT BEDSIDE AND CONNECTED TO O2 SOURCE. 8.0 ETT IS SECURED WITH ANCHORFAST AT 24 CM TO THE ORAL RIGHT. WATER LEVEL IS ADEQUATE. CONT ORDERED CIRCUIT TEMP 34.0, POX 96% Addendum: 11/22/19 at 0037 by Sophia Green RT Amended: Links added.
[2019-11-22] MEDS: NOREPINEPHRINE 8 MG/250ML KIT 250 ML IV SCH (00:24)
[2019-11-22] MEDS: PROPOFOL 100 ML IV SCH ×8 (00:52→20:21)
[2019-11-22] MEDS: MIDAZOLAM DRIP 50 mg/50mL 50 ML IV SCH ×5 (00:53→17:11)
[2019-11-22] MEDS: LINEZOLID 600MG/300ML 300 ML IV SCH ×2 (01:15→12:19)
--- NOTE | 2019-11-22 02:04 | NUR ---
RT NOTE ROUTINE VENT CHECK DONE. PT INTUBATED AND ON VENT #V6 ON STATED SETTINGS WITH HEATED WIRE CIRCUIT. VENT IS PLUGGED TO RED OUTLET. ALARMS ARE ON AND AUDIBLE TO NURSING. AMBU BAG AT BEDSIDE AND CONNECTED TO O2 SOURCE. 8.0 ETT IS SECURED WITH ANCHORFAST AT 24 CM TO THE ORAL LEFT. BS ARE COARSE. HHN GIVEN INLINE WITH 2.5 MG ALBUTEROL, 0.5 MG ATROVENT AND 1 CCL 10% MUCOMYST. PT WAS SUCTIONED FOR LARGE RETURN ORALLY AND SMALL RETURN FROM ETT. WATER LEVEL IS ADEQUATE. CONT ORDERED CIRCUIT TEMP 33.6, POX 95% Addendum: 11/22/19 at 0215 by Sophia Green RT Amended: Links added.
[2019-11-22] MEDS: IPRATROPIUM BROM 0.5 MG/2.5ML INH SOL NEB SCH ×6 (02:07→22:38)
[2019-11-22] MEDS: ALBUTEROL SULF 2.5 MG/0.5ML(0.5%) NEB SOLN NEB SCH ×6 (02:07→22:38)
[2019-11-22] MEDS: ACETYLCYSTEINE 10 %(100MG/ML) SOL 4ML NEB SCH ×6 (02:08→22:38)
[2019-11-22] MEDS: DexMEDEtomidine 400 MCG in D5W 5% 96 ML IV SCH ×2 (03:03→14:33)
--- NOTE | 2019-11-22 03:52 | NUR ---
RT NOTE ROUTINE VENT CHECK DONE. PT INTUBATED AND ON VENT #V6 ON STATED SETTINGS WITH HEATED WIRE CIRCUIT. VENT IS PLUGGED TO RED OUTLET. ALARMS ARE ON AND AUDIBLE TO NURSING. AMBU BAG AT BEDSIDE AND CONNECTED TO O2 SOURCE. 8.0 ETT IS SECURED WITH ANCHORFAST AT 24 CM TO THE ORAL LEFT. WATER LEVEL IS ADEQUATE. CONT ORDERED CIRCUIT TEMP 34.8, POX 94% Addendum: 11/22/19 at 0405 by Sophia Green RT Amended: Links added.
[2019-11-22] MEDS: fentaNYL Drip 2500mCg/250mlNS 250 ML IV SCH ×2 (04:30→17:39)
[2019-11-22 04:56] LABS: Basophils # (auto) 0.1 10 ^3/uL (0-0.2); Basophils % (auto) 1.1 % (0.0-2.0); Eosinophils # (auto) 0.3 10 ^3/uL (0-0.8); Eosinophils % (auto) 3.5 % (0.0-7.0); Hematocrit 45.5 % (41.0-53.0); Hemoglobin 14.8 g/dL (13.5-17.5); Lymphocytes # (auto) 0.7 10 ^3/uL (0.4-5.4); Lymphocytes % (auto) 8.1 % (10.0-50.0); Mean Corpuscular Hemoglobin 27.1 pg (28.0-32.0); Mean Corpuscular Hgb Conc. 32.6 g/dL (32.0-36.0); Mean Corpuscular Volume 83.1 fL (80.0-100.0); Monocytes # (auto) 0.9 10 ^3/uL (0-1.3); Monocytes % (auto) 9.6 % (0.0-12.0); Neutrophils % (auto) 77.7 % (37.0-80.0); Nucleated Red Blood Cells % 0.1 %; Platelet Count (auto) 356 10^3/uL (140-450); Red Blood Cells 5.48 10^6/uL (4.5-5.90); Red Cell Distribution Width 17.4 % (11.8-14.3); White Blood Cell 9.1 10^3/uL (4.4-10.8)
[2019-11-22 05:10] LABS: Albumin 2.1 g/dL (3.4-5.0); Calcium 8.8 mg/dL (8.5-10.1); Magnesium 2.1 mg/dL (1.6-2.6); Potassium 3.1 mmol/L (3.5-5.1)
[2019-11-22 05:14] LABS: BUN/Creatinine Ratio 29.5; Phosphorus 4.2 mg/dL (2.5-4.90); Total Protein 7.9 g/dL (6.4-8.2)
[2019-11-22] MEDS: PIPERACILLIN-TAZO 4.5GM 100 ML IV SCH ×3 (06:00→23:23)
[2019-11-22] MEDS: METOCLOPRAMIDE HCL 5MG/ml INJ 2ml VIAL IV SCH ×3 (06:00→23:23)
[2019-11-22] MEDS: InsuLIN REG 1unit/0.01ml Soln (100units/ml) SC SCH ×4 (06:00→18:00)
[2019-11-22] MEDS: ACCU-CHEK COMFORT CURVE STRIP VI SCH ×4 (06:00→18:07)
--- NOTE | 2019-11-22 09:12 | NUR ---
0898 11/22/19 - Received a call from [facility] transfer center coordinator (Ricky) who stated currently [facility] is not accepting any transfers due to COVID 19 until further notice. They currently have not beds available.
[2019-11-22] MEDS: PANTOPRAZOLE 40 MG/10 ML VIAL INJ IV SCH (10:02)
[2019-11-22] MEDS: BUMETANIDE 2.5mg/10ml (0.25 mg/ml) INJ IV SCH (10:02)
[2019-11-22] MEDS: POTASSIUM CHL 20MEQ/100ML 100 ML IV SCH ×5 (10:50→14:07)
--- NOTE | 2019-11-22 10:58 | NUR ---
WOUND CARE NOTE: Wound care in for skin integrity monitoring. Patient continue resting in ICU bed in Rm. 101. He's still intubated and mechanically ventilated. His Dominic score is 12. Patient remain wound free per ROSE Meier,other than dry fissured callous to BLE; Unable to turn at this time. Advised ROSE Meier to call wound care if able to turn patient. Patient continue receiving BID/PRN cleaning and application of HYdraguard cream to dry skin. RECOMMENDATION: Continuation of all wound care orders prescribed by MD, continue with skin/wound plan of care, continue monitoring by wound care while patient is mechanically ventilated and Dominic score is <18.
--- NOTE | 2019-11-22 11:58 | NUR ---
MARIE CALLED. GAVE UPDATE ON PT. ALL QUESTIONS ANSWERED.
--- NOTE | 2019-11-22 15:20 | NUR ---
DR. Bart CANALES CALLED. GAVE UPDATE ON PT. INFORMED MD THAT PT. HAS RECEIVED KCL 60 MEQ. IV THIS AM, 3RD. BAG FINISHING INFUSION. SAW NEW ORDER FOR 40 MEQ. KCL AND SPOKE WITH PHARMACIST WHO SAID THEY WILL CALL DR. Bart CANALES. SAID HE DID NOT SPEAK WITH PHARMACIST AND ORDERED FOR K LEVEL AT 1700 TODAY AND D'C'D ADDITIONAL 40 MEQ. KCL.
[2019-11-22] MEDS ORDERED: BUMETANIDE INJECTION 25 MG in GIVE UN-DILUTED 0 ML IV SCH (17:30)
--- NOTE | 2019-11-22 17:33 | NUR ---
1745 11/22/19 - Contacted [facility] who provided authorization for [facility] facility [id number] and authorization for transportation [id number].
--- NOTE | 2019-11-22 17:34 | NUR ---
D/C Planning Regarding social service consult for [facility]. Faxed clinical information to [facility]. Per Shanel with [facility] [facility] patient has been accepted and they are pending a ICU bed at their [place] facility. Per Shanel she will follow up with me in the morning.
--- NOTE | 2019-11-22 17:50 | NUR ---
O2 SATS DECREASED TO 80% ON VENT WITH GOOD PLETH. PT. IS ON RT. SIDE. RT PAGED TO COME TO BS. GAVE PT. 100% FIO2 ON VENT. SUCTIONED VIA ET 3 TIMES AND HAD THICK CREAMY/GREEN/RUST COLOR SPUTUM. PT. PLACED SUPINE WITH HOB UP 30 DEGREES. RT CAME TO BS AND LAVAGED PT. WITH SUCTIONING WITH 100% FIO2. RT BAGGED PT. FOR FEW MINUTES. FIO2 INCREASED TO 100% ON VENT BY RT. O2 SATS SLOWLY CAME UP TO 95% WITH GOOD PLETH.
--- NOTE | 2019-11-22 19:21 | NUR ---
Respiratory note: PAGED TO BEDSIDE, PT'S SPO2 NOTED AT 81%. RN GAVE PT 100% FIO2 ON VENTILATOR, SPO2 STILL UNDER 84%. PT SUCTIONED X4, REMOVED FROM VENT AND BAGGED WITH 100% FIO2 VIA AMBU BAG WITH PEEP VALVE SET TO [id number]. PT SATS IMPROVED TO 95%, PT PLACED BACK ON VENTILATOR WITH PREVIOUS SETTINGS, FIO2 INCREASED TO 90%, SPO2 NOTED AT 94%, WILL TITRATE FIO2 TOLERATED.
[2019-11-22] MEDS: TPN*HIGH CONC* PER PHARMACY IV NR ×7 (19:49)
--- NOTE | 2019-11-22 20:00 | NUR ---
PT UNABLE TO TOLERATE TURNING AT THIS TIME DUE TO BEING ON 100% FI02 AND PREVIOUSLY DESATURATING WHEN TURNED. WILL CONTINUE TO REASSESS PT TOLERANCE TO TURNING
--- NOTE | 2019-11-22 23:00 | NUR ---
MD Emmy GALVAN AT BEDSIDE. UPDATED MD ON PT CONDITION. NO NEW ORDERS RECEIVED AT THIS TIME. MD SAID HE SPOKE WITH PTS SISTER AND FATHER YESTERDAY AND THEY STILL WANT TO TRANSFER TO [place] FOR TRACH/PEG.
[2019-11-23] VITALS (104 sets, daily range): BP systolic 105–142; BP diastolic 53–91
[2019-11-23] MEDS: ACCU-CHEK COMFORT CURVE STRIP VI SCH ×5 (00:13→23:49)
[2019-11-23] MEDS: NOREPINEPHRINE 8 MG/250ML KIT 250 ML IV SCH (00:24)
[2019-11-23] MEDS: LINEZOLID 600MG/300ML 300 ML IV SCH ×2 (01:47→13:00)
--- NOTE | 2019-11-23 01:50 | NUR ---
SPOKE WITH PTS SISTER- PASSWORD VERIFIED. UPDATED HER ON PT CONDITION, CURRENT 02 REQUIREMENTS, AND PLAN OF CARE. ALL QUESTIONS AND CONCERNS ADDRESSED AT THIS TIME.
[2019-11-23] MEDS: ALBUTEROL SULF 2.5 MG/0.5ML(0.5%) NEB SOLN NEB SCH ×6 (02:22→21:57)
[2019-11-23] MEDS: IPRATROPIUM BROM 0.5 MG/2.5ML INH SOL NEB SCH ×6 (02:22→21:57)
[2019-11-23] MEDS: ACETYLCYSTEINE 10 %(100MG/ML) SOL 4ML NEB SCH ×6 (02:22→21:58)
--- NOTE | 2019-11-23 03:10 | NUR ---
PT CARE GAVE PT CHG BATH, GOWN CHANGE AND MOISTURE CREAM APPLIED TO AREAS OF DRYNESS. STILL UNABLE TO TURN PT AND DO FULL MARY CHANGE DUE TO 100% FI02 REQUIREMENTS AND 02 SAT MAINTAINING 90-92%.
[2019-11-23 04:50] LABS: Calcium 8.8 mg/dL (8.5-10.1)
[2019-11-23 04:56] LABS: BUN/Creatinine Ratio 31.2; Phosphorus 3.5 mg/dL (2.5-4.90); Total Protein 8.5 g/dL (6.4-8.2)
[2019-11-23 04:59] LABS: Potassium 2.7 mmol/L (3.5-5.1)
--- NOTE | 2019-11-23 05:13 | NUR ---
CALLED MD HAJI FOR CRITICAL K VALUE. LEFT MESSAGE AND AWAITING CALLBACK.
[2019-11-23 05:28] LABS: Albumin 1.9 g/dL (3.4-5.0)
[2019-11-23] MEDS ORDERED: POTASSIUM CHL 20MEQ/100ML 100 ML IV ONE (05:30)
[2019-11-23] MEDS: METOCLOPRAMIDE HCL 5MG/ml INJ 2ml VIAL IV SCH ×3 (06:20→22:05)
[2019-11-23] MEDS: PIPERACILLIN-TAZO 4.5GM 100 ML IV SCH ×3 (06:21→22:05)
--- NOTE | 2019-11-23 06:25 | NUR ---
BUMEX GTT HELD PER MD VINCENT. PT PUT OUT 5,200 ML OF URINE AND POTASSIUM REPLACEMENT INITIATED.
[2019-11-23] MEDS: InsuLIN REG 1unit/0.01ml Soln (100units/ml) SC SCH ×5 (06:30→23:49)
--- NOTE | 2019-11-23 08:08 | NUR ---
PATIENT SISTER, MOISES CALLED FOR UPDATE PROVIDED PASSWORD. UPDATED ON CURRENT STATUS AND PLAN OF CARE. DISCUSSED PATIENTS Fi02 REQUIREMENTS
--- NOTE | 2019-11-23 08:30 | NUR ---
TURNING HELD- PATIENT HEMODYNAMICALLY UNSTABLE FOR TURN. DESATURATION OCCURS. PATIENT ON HIGH Fi02 USING BED LATERAL PULMONARY ROTATION SET AT 20DEGRESS TO HELP ALTERNATE PRESSURE ON LUNGS. WILL CONTINUE TO REASSESS
--- NOTE | 2019-11-23 09:30 | NUR ---
SEDATION VACATION HELD- HEMODYNAMICALLY UNSTABLE Addendum: 11/23/19 at 0951 by Michaelle Melendez RN Amended: Links added.
[2019-11-23] MEDS: BUMETANIDE 2.5mg/10ml (0.25 mg/ml) INJ IV SCH (10:00)
[2019-11-23] MEDS: MIDAZOLAM DRIP 50 mg/50mL 50 ML IV SCH ×3 (10:30→22:05)
[2019-11-23] MEDS: PROPOFOL 100 ML IV SCH ×4 (10:30→22:05)
[2019-11-23] MEDS: DexMEDEtomidine 400 MCG in D5W 5% 96 ML IV SCH ×2 (10:36→15:39)
--- NOTE | 2019-11-23 10:56 | NUR ---
Nutrition Followup Notes wt: 155.6 kg Pt`s intubated, sedated with propofol running at 43.545 ml/hr, providing 1150 additional kcals from lipids. Pt is currently NPO, on TPN support @ 64 ml/hr providing 1218 kcal, 150g protein, 618 NCP. This provides 105-132% of energy needs and 82-103% of protein needs. Est Energy needs: 6785-4663 kcals (12-15 kcal/kgBW), Est Protein needs: 145-182 gms/day (2.0-2.5 gm/kgIBW) d/t pt adiposity. Will continue to monitor and reassess prn. LABS: BUN 24H, Gluc 143H, Alb 1.9L GI: Pt with gastric drainage 425 ml 11/22 per RN doc. BS: 12 high risk. Please refer to wound assessment report for full details. PES: 1) Increased nutrient needs aeb pt is sedated, intubated, NPO r/t pt with no PO intake 2) Obesity aeb 206% IBW and BMI of 48.8 kg/m2 r/t energy intake in excess of energy needs 3) Altered nutrient related lab values hypernatremia, chloremia, eleb CO2, hyperglycemia, eleb Bili, elev Trigly, mod hypoalbuminemia r/t current medical condition Comments 1) Advanced PN support to meet > 75% of needs. 2) Gradually advance pt to oral diet when medically feasible and as tolerated. 4) Refer pt to RD for nutrition education upon D/C. 5) Continue current plan of care
--- NOTE | 2019-11-23 11:19 | NUR ---
D/C Planning Received a follow up called from Shanel with [facility] ) advising me patient has been accepted to [facility] in [place] to ICU room 2 accepting , Dr. Louis, Phone number for Nurse to give report is ). Informed RN Michaelle in ICU. Per RN Michaelle patient is not stable to transfer at this time and doctor will keep patient. Placed a follow up called to Shanel with [facility]. Per [facility] she will cancel bed assignment and will follow up in the morning. [facility] is ON WILL CALL ) with CCT care vent monitor, oxygen monitor, monitor car operator and TPN care.
[2019-11-23] MEDS: PANTOPRAZOLE 40 MG/10 ML VIAL INJ IV SCH (13:00)
--- NOTE | 2019-11-23 14:48 | NUR ---
SPOKE WITH DR VINCENT REGARDING TRANSFER TRANSFER ON HOLD AT THIS TIME. FI02 REQUIREMENTS ARE TOO HIGHER. NEW ORDERS
[2019-11-23] MEDS: fentaNYL Drip 2500mCg/250mlNS 250 ML IV SCH ×2 (15:30→23:40)
[2019-11-23] MEDS: BUMETANIDE INJECTION 25 MG in GIVE UN-DILUTED 0 ML IV SCH (15:38)
--- NOTE | 2019-11-23 16:30 | NUR ---
DR William GALVAN AT BEDSIDE NEW ORDERS PLACED
[2019-11-23] MEDS: POTASSIUM CHL 20MEQ/100ML 100 ML IV PRN ×2 (17:48→18:40)
--- NOTE | 2019-11-23 17:49 | NUR ---
POTASSIUM 3.2- POTASSIUM PROTOCOL IN PLACE. WILL COVER ORDERED
--- NOTE | 2019-11-23 19:30 | NUR ---
OPENING NOTE: INTUBATED AND SEDATED. OPENS EYES BUT DOES NOT TRACK NOR FOLLOW COMMANDS. NSR, HR 70-80S SBP 110-130. 8.0 ETT, 26 AT THE LIP. LS COARSE THROUGHOUT, DIMINISHED TO BASES. SpO2 LOW 90s. ABD VERY LARGE, DISTENDED. HYPOACTIVE BS. UNKNOWN LBM. OGT TO LIS, DARK BILIOUS OUTPUT. FLEXISEAL INTACT, NO STOOL OUTPUT. GABRIEL PATENT WITH DARK MONSERRAT/. SKIN GROSSLY INTACT, CALLOUSED HANDS AND FEET. LEFT IJ TLC, CDI, WITHOUT BLOOD RETURN. RIGHT FOREARM, CDI, AND PATENT WITH BLOOD RETURN REINFORCED POC. MAINTAINED PATIENT SAFETY: BED LOCKED AND IN THE LOWEST POSITION. FREQUENT VISUAL CHECKS. WILL CONT CARE
[2019-11-23] MEDS: TPN*HIGH CONC* PER PHARMACY IV NR ×7 (19:58)
[2019-11-23] MEDS ORDERED: TPN*HIGH CONC* PER PHARMACY IV NR ×9 (20:00)
--- NOTE | 2019-11-23 20:28 | NUR ---
SpO2 89% - ATTEMPTED TO RAISE HOB, AND CHANGED OUT PULSE OX MONITOR WITH NO CHANGE - PAGED RT
--- NOTE | 2019-11-23 20:40 | NUR ---
FiO2 INCREASED BY RT
--- NOTE | 2019-11-23 21:00 | NUR ---
SEDATION VACATION: UNABLE TO COMPLETE AT THIS TIME DUE TO FRAGILE RESPIRATORY STATUS Addendum: 11/23/19 at 2224 by Shanika Knight RN RN Amended: Links added.
--- NOTE | 2019-11-23 21:00 | NUR ---
SpO2 >92%
--- NOTE | 2019-11-23 23:30 | NUR ---
TEMP 100.4F AXILLARY - APPLIED ICE PACK TO AXILLA, AND GROIN
[2019-11-24] VITALS (101 sets, daily range): BP systolic 94–150; BP diastolic 47–112
[2019-11-24] MEDS: PROPOFOL 100 ML IV SCH ×10 (00:12→23:30)
[2019-11-24] MEDS: NOREPINEPHRINE 8 MG/250ML KIT 250 ML IV SCH (00:24)
--- NOTE | 2019-11-24 01:00 | NUR ---
TEMP DOWN TO 99.5F AXILLARY
[2019-11-24] MEDS: LINEZOLID 600MG/300ML 300 ML IV SCH ×2 (01:17→14:27)
--- NOTE | 2019-11-24 02:00 | NUR ---
BED BATH WITH CHG WIPES, MATA CARE, GABRIEL CARE, ORAL CARE, AND PARTIAL LINEN CHANGE
--- NOTE | 2019-11-24 02:00 | NUR ---
PATIENT DESATURATED DOWN TO 90% WITH TURN AND 2 MINUTES OF PRE-OXYGENATION OF 100% FIO2
[2019-11-24] MEDS: IPRATROPIUM BROM 0.5 MG/2.5ML INH SOL NEB SCH ×5 (02:15→18:21)
[2019-11-24] MEDS: ALBUTEROL SULF 2.5 MG/0.5ML(0.5%) NEB SOLN NEB SCH ×5 (02:15→18:21)
[2019-11-24] MEDS: MIDAZOLAM DRIP 50 mg/50mL 50 ML IV SCH ×3 (02:25→22:13)
[2019-11-24] MEDS: fentaNYL Drip 2500mCg/250mlNS 250 ML IV SCH ×2 (02:26→14:00)
[2019-11-24] MEDS: ACETYLCYSTEINE 10 %(100MG/ML) SOL 4ML NEB SCH ×5 (02:33→18:22)
[2019-11-24] MEDS: InsuLIN REG 1unit/0.01ml Soln (100units/ml) SC SCH ×4 (04:59→23:31)
[2019-11-24] MEDS: ACCU-CHEK COMFORT CURVE STRIP VI SCH ×4 (05:00→23:31)
[2019-11-24 05:21] LABS: INR 1.12 (0.9-1.15); Partial Thromboplastin Time 27.5 sec (23.64-32.05)
[2019-11-24 05:31] LABS: Albumin 2.3 g/dL (3.4-5.0); Calcium 9.1 mg/dL (8.5-10.1)
[2019-11-24 05:34] LABS: BUN/Creatinine Ratio 35.9; Phosphorus 4.4 mg/dL (2.5-4.90)
[2019-11-24 05:38] LABS: Pre Albumin 30.8 mg/dL (20.0-40.0)
[2019-11-24] MEDS: DexMEDEtomidine 400 MCG in D5W 5% 96 ML IV SCH ×2 (06:11→18:57)
[2019-11-24] MEDS: METOCLOPRAMIDE HCL 5MG/ml INJ 2ml VIAL IV SCH ×3 (06:29→22:13)
[2019-11-24] MEDS: PIPERACILLIN-TAZO 4.5GM 100 ML IV SCH ×3 (06:30→23:31)
[2019-11-24 06:34] LABS: Potassium 2.9 mmol/L (3.5-5.1)
[2019-11-24] MEDS: POTASSIUM CHL 20MEQ/100ML 100 ML IV PRN ×5 (06:42→23:31)
--- NOTE | 2019-11-24 06:42 | NUR ---
POTASSIUM 2.9 - WILL REPLACE WITH 60 MEQ KCL IVPB PER ORDER
--- NOTE | 2019-11-24 07:13 | NUR ---
REPORT AND CARE ENDORSED TO ROSE PANG
--- NOTE | 2019-11-24 08:40 | NUR ---
DR VINCENT AT BEDSIDE DISCUSSED PATIENTS STATUS, RECEIVED NEW ORDERS
--- NOTE | 2019-11-24 09:10 | NUR ---
SEDATION VACATION HELD- NOT APPROPRIATE AT THIS TIME DUE TO RESPIRATORY STATUS Addendum: 11/24/19 at 0911 by Michaelle Melendez RN Amended: Links added.
--- NOTE | 2019-11-24 09:50 | NUR ---
Respiratory note: TITRATED FIO2 TO 75%, ROSE PANG INFORMED.
[2019-11-24] MEDS: PANTOPRAZOLE 40 MG/10 ML VIAL INJ IV SCH (10:15)
--- NOTE | 2019-11-24 10:20 | NUR ---
picc line consent placed in chart patients sister stephy gave telephone consent for picc placement, 2 rn verified. notified picc rn
--- NOTE | 2019-11-24 12:10 | NUR ---
PICC RN AT BEDSIDE
--- NOTE | 2019-11-24 12:10 | NUR ---
Respiratory note: TITRATED FIO2 TO 70%
[2019-11-24] MEDS ORDERED: LIDOCAINE 1% (LOCAL ANESTH.) PF 5ml SDV ID ONE (12:45)
--- NOTE | 2019-11-24 13:05 | NUR ---
PICC line placement Patient significant other educated on need for PICC line placement. All risks and benefits explained and all questions and concerns addressed prior to procedure. Noted past medical history and allergies with no contraindications. INR and Plt counts within acceptable range. 5 fr PICC line inserted via right basilic vein using [employer] US and Tip Location System. Sterile technique with maximum barrier precautions utilized. Blood return obtained from each of the 3 lumens and each flushed easily with NS using proper technique. PICC secured with Stat-lock; biodisc and occlusive dressing applied. Stat portable chest x-ray obtained for PICC tip placement. *Baseline Arm Circumference 35 cm. Internal length 46 cm. External length 0 cm. PICC lot #[id number]
--- NOTE | 2019-11-24 13:11 | NUR ---
Okay to use PICC line Xray completed and reviewed. Okay to use PICC line. Michaelle ROSE notified.
--- NOTE | 2019-11-24 13:30 | NUR ---
re-assessment Per Shanel at [facility] patient will still go to room ICU [address] Louis is the accepting MD. [facility] is scheduled for 2099. Per Isauro at [facility] he will call bedside nurse if there is a delay. Patient can be admitted to [facility] after 2099. Christina Director of ICU has been notified. Addendum: 11/24/19 at 1337 by Shilpa MARLEY Amended: Links added.
--- NOTE | 2019-11-24 13:50 | NUR ---
Respiratory note: TITRATED FIO2 TO 65%
--- NOTE | 2019-11-24 14:07 | NUR ---
Respiratory note: TITRATED FIO2 TO 60%, RN BIRD INFORMED. SPO2 96%
[2019-11-24] MEDS: BUMETANIDE INJECTION 25 MG in GIVE UN-DILUTED 0 ML IV SCH ×2 (14:45→16:45)
--- NOTE | 2019-11-24 15:13 | NUR ---
re-assessment Shanel Neely called and informed me they had an emergency and gave our bed away. Patient cannot come until this weekend. I will follow up with Shanel in the morning. [facility] back on will call. Michaelle ROSE informed. Addendum: 11/24/19 at 1517 by Shilpa MARLEY Amended: Links added.
--- NOTE | 2019-11-24 19:02 | NUR ---
DR William GALVAN AT BEDSIDE NEW ORDERS PLACED,
--- NOTE | 2019-11-24 19:30 | NUR ---
OPENING NOTE: INTUBATED AND SEDATED. OPENS EYES BUT DOES NOT TRACK NOR FOLLOW COMMANDS. NSR, HR 70-80S SBP 110-130. 8.0 ETT, 26 AT THE LIP. LS COARSE THROUGHOUT, DIMINISHED TO BASES. SpO2 LOW 90s. ABD VERY LARGE, DISTENDED. HYPOACTIVE BS. UNKNOWN LBM. OGT TO LIS, DARK BILIOUS OUTPUT. FLEXISEAL INTACT, NO STOOL OUTPUT. GABRIEL PATENT WITH DARK MONSERRAT/. SKIN GROSSLY INTACT, CALLOUSED HANDS AND FEET. RIGHT UPPER ARM PICC, CDI, BUT SLUGGISH WITH SLUGGISH BLOOD RETURN. LEFT IJ TLC, CDI, WITHOUT BLOOD RETURN. RIGHT FOREARM, CDI, AND PATENT WITH BLOOD RETURN REINFORCED POC. MAINTAINED PATIENT SAFETY: BED LOCKED AND IN THE LOWEST POSITION. FREQUENT VISUAL CHECKS. WILL CONT CARE
[2019-11-24] MEDS ORDERED: TPN*HIGH CONC* PER PHARMACY IV NR ×8 (20:00)
--- NOTE | 2019-11-24 21:00 | NUR ---
UNABLE TO COMPLETE SEDATION VACATION AT THIS TIME: FRAGILE RESPIRATORY STATUS. Addendum: 11/25/19 at 0016 by Shanika Knight RN RN Amended: Links added.
[2019-11-24 21:35] LABS: Calcium 9.7 mg/dL (8.5-10.1); Potassium 3.2 mmol/L (3.5-5.1)
[2019-11-24] MEDS: SODIUM CHLOR 0.9% PF (SALINE LOCK) 10ML VIAL/SYR IV SCH (22:00)
--- NOTE | 2019-11-24 22:00 | NUR ---
LEFT TLC REMOVED: TIP INTACT. HEMOSTASIS ACHIEVED. CLEANSED SITE WITH CHLORHEXIDINE SWAB. COVERED WITH GAUZE AND TEGADERM
--- NOTE | 2019-11-24 22:00 | NUR ---
K+ 3.2 - WILL REPLACE WITH 60 MEQ KCL PER ORDER
--- NOTE | 2019-11-24 23:42 | NUR ---
DESATURATING -ATTEMPTED TO SUCTION, AND REPOSITION - STILL DESATURATING - PAGED RT
--- NOTE | 2019-11-24 23:53 | NUR ---
FiO2 INCREASED BY RT
[2019-11-25] VITALS (108 sets, daily range): BP systolic 93–149; BP diastolic 48–100
[2019-11-25] MEDS: POTASSIUM CHL 20MEQ/100ML 100 ML IV PRN ×4 (00:22→07:31)
[2019-11-25] MEDS: NOREPINEPHRINE 8 MG/250ML KIT 250 ML IV SCH (00:24)
[2019-11-25] MEDS: PROPOFOL 100 ML IV SCH ×5 (01:46→22:46)
[2019-11-25] MEDS: LINEZOLID 600MG/300ML 300 ML IV SCH ×2 (01:46→13:00)
[2019-11-25] MEDS: MIDAZOLAM DRIP 50 mg/50mL 50 ML IV SCH ×4 (01:46→23:54)
[2019-11-25] MEDS: fentaNYL Drip 2500mCg/250mlNS 250 ML IV SCH (01:53)
[2019-11-25] MEDS: ACETYLCYSTEINE 10 %(100MG/ML) SOL 4ML NEB SCH ×7 (02:06→21:54)
[2019-11-25] MEDS: IPRATROPIUM BROM 0.5 MG/2.5ML INH SOL NEB SCH ×7 (02:06→21:53)
[2019-11-25] MEDS: ALBUTEROL SULF 2.5 MG/0.5ML(0.5%) NEB SOLN NEB SCH ×7 (02:07→21:53)
--- NOTE | 2019-11-25 02:09 | NUR ---
TOO UNSTABLE TO TURN AT THIS TIME - WILL ADJUST HEAD AND FOOT OF BED TO DISTRIBUTE WEIGHT
[2019-11-25 04:40] LABS: Basophils # (auto) 0.1 10 ^3/uL (0-0.2); Basophils % (auto) 1.8 % (0.0-2.0); Eosinophils # (auto) 0.4 10 ^3/uL (0-0.8); Eosinophils % (auto) 4.5 % (0.0-7.0); Hematocrit 47.5 % (41.0-53.0); Hemoglobin 15.7 g/dL (13.5-17.5); Lymphocytes # (auto) 1.1 10 ^3/uL (0.4-5.4); Lymphocytes % (auto) 13.4 % (10.0-50.0); Mean Corpuscular Hemoglobin 27.4 pg (28.0-32.0); Monocytes # (auto) 0.8 10 ^3/uL (0-1.3); Monocytes % (auto) 9.6 % (0.0-12.0); Neutrophils # (auto) 5.8 10 ^3/uL (1.6-8.6); Neutrophils % (auto) 70.7 % (37.0-80.0); Nucleated Red Blood Cells % 0.4 %; Platelet Count (auto) 360 10^3/uL (140-450); Red Blood Cells 5.72 10^6/uL (4.5-5.90); Red Cell Distribution Width 17.3 % (11.8-14.3); White Blood Cell 8.2 10^3/uL (4.4-10.8)
[2019-11-25 04:58] LABS: Albumin 2.5 g/dL (3.4-5.0); Calcium 9.7 mg/dL (8.5-10.1); Magnesium 2.2 mg/dL (1.6-2.6); Potassium 3.2 mmol/L (3.5-5.1)
[2019-11-25 05:01] LABS: BUN/Creatinine Ratio 41.1; Bilirubin, Total 1.1 mg/dL (0.2-1.0); Phosphorus 3.3 mg/dL (2.5-4.90); Total Protein 9.5 g/dL (6.4-8.2)
--- NOTE | 2019-11-25 05:21 | NUR ---
PARTIAL BED BATH, MATA CARE, GABRIEL CARE, ORAL CARE, AND PARTIAL LINEN CHANGE COMPLETED
--- NOTE | 2019-11-25 05:30 | NUR ---
K+ 3.2 - WILL REPLACED WITH 60 MEQ KCL PER ORDER
[2019-11-25] MEDS: InsuLIN REG 1unit/0.01ml Soln (100units/ml) SC SCH ×4 (05:39→23:54)
[2019-11-25] MEDS: ACCU-CHEK COMFORT CURVE STRIP VI SCH ×4 (05:39→23:54)
[2019-11-25] MEDS: METOCLOPRAMIDE HCL 5MG/ml INJ 2ml VIAL IV SCH ×3 (05:39→21:58)
[2019-11-25] MEDS: PIPERACILLIN-TAZO 4.5GM 100 ML IV SCH ×3 (06:31→22:46)
--- NOTE | 2019-11-25 07:25 | NUR ---
REPORT AND CARE ENDORSED TO ROSE MERINO
[2019-11-25] MEDS: DexMEDEtomidine 400 MCG in D5W 5% 96 ML IV SCH ×2 (07:45→20:32)
--- NOTE | 2019-11-25 07:50 | NUR ---
OPENING Report received from Shanika LI RN. Care initiated and initial assessment complete.
[2019-11-25] MEDS: SODIUM CHLOR 0.9% PF (SALINE LOCK) 10ML VIAL/SYR IV SCH ×2 (09:55→21:59)
[2019-11-25] MEDS: PANTOPRAZOLE 40 MG/10 ML VIAL INJ IV SCH (09:55)
--- NOTE | 2019-11-25 10:35 | NUR ---
Nutrition Followup Notes wt: 144.5 kg Pt`s intubated, sedated with propofol running at 43.545 ml/hr, providing 1150 additional kcals from lipids. Pt is currently NPO, on TPN support @ 71 ml/hr providing 1136 kcal, 130g protein, 618 NCP. This provides 101-127% of energy needs and 71-89% of protein needs. Est Energy needs: 6685-6501 kcals (12-15 kcal/kgBW), Est Protein needs: 145-182 gms/day (2.0-2.5 gm/kgIBW) d/t pt adiposity. Will continue to monitor and reassess prn. LABS: BUN 39 H, Gluc 137 H, Alb 2.5 L GI: Pt with gastric drainage 200 ml yesterday per RN doc. BS: 14 mod risk. Please refer to wound assessment report for full details. PES: 1) Increased nutrient needs aeb pt is sedated, intubated, NPO r/t pt with no PO intake 2) Obesity aeb 206% IBW and BMI of 48.8 kg/m2 r/t energy intake in excess of energy needs 3) Altered nutrient related lab values hypernatremia, chloremia, eleb CO2, hyperglycemia, eleb Bili, elev Trigly, mod hypoalbuminemia r/t current medical condition Comments 1) Advanced PN support to meet > 75% of needs. 2) Gradually advance pt to oral diet when medically feasible and as tolerated. 4) Refer pt to RD for nutrition education upon D/C. 5) Continue current plan of care
--- NOTE | 2019-11-25 11:52 | NUR ---
SPOKE TO MD Spoke to Dr. Emmy Mason. New orders given, MD placing in chart. Updated on patients condition.
[2019-11-25] MEDS: BUMETANIDE INJECTION 25 MG in GIVE UN-DILUTED 0 ML IV SCH (15:11)
[2019-11-25 18:58] LABS: BUN/Creatinine Ratio 48.4; Calcium 9.7 mg/dL (8.5-10.1); Potassium 3.4 mmol/L (3.5-5.1)
[2019-11-25] MEDS: LORazepam 2MG/ML-1ML VIAL IV PRN (19:27)
--- NOTE | 2019-11-25 19:30 | NUR ---
ATIVAN PRN GIVEN - PATIENT SHIVERING/TREMORING WITH TEARS IN HIS EYES
[2019-11-25] MEDS ORDERED: TPN*HIGH CONC* PER PHARMACY IV NR ×8 (20:00)
--- NOTE | 2019-11-25 21:00 | NUR ---
UNABLE TO COMPLETE SEDATION VACATION AT THIS TIME: PATIENT CURRENTLY OPENS EYES BUT DOES NOT TRACK. ON PRESSURE CONTROL MODE ON VENTILATOR WITH HIGH FiO2 REQUIREMENTS. Addendum: 11/25/19 at 2136 by Shanika Knight RN RN Amended: Links added.
[2019-11-25] MEDS: POTASSIUM EFFERVESENT TAB 25 MEQ PO SCH (21:59)
[2019-11-25] MEDS ORDERED: POTASSIUM CHL 20 Meq TABLET PO SCH (22:00)
--- NOTE | 2019-11-25 22:00 | NUR ---
GIVEN EFFERVESCENT POTASSIUM VIA OGT - PLACED PATIENT SUPINE IN HIGH FOWLERS
[2019-11-26] VITALS (103 sets, daily range): BP systolic 95–141; BP diastolic 49–108
--- NOTE | 2019-11-26 | NUR ---
GASTRIC RESIDUAL < 30 ML - REPOSITIONED TO LEFT SIDE
[2019-11-26] MEDS: NOREPINEPHRINE 8 MG/250ML KIT 250 ML IV SCH (00:24)
--- NOTE | 2019-11-26 00:34 | NUR ---
PATIENT DID NOT TOLERATE LARGE ROTATION/REPOSITION TO LEFT SIDE - DESATURATE DOWN TO 89% - PLACED BACK TO SUPINE
[2019-11-26] MEDS: PROPOFOL 100 ML IV SCH ×10 (01:11→22:54)
[2019-11-26] MEDS: fentaNYL Drip 2500mCg/250mlNS 250 ML IV SCH ×2 (01:15→19:29)
[2019-11-26] MEDS: LINEZOLID 600MG/300ML 300 ML IV SCH ×2 (01:36→12:13)
[2019-11-26] MEDS: ALBUTEROL SULF 2.5 MG/0.5ML(0.5%) NEB SOLN NEB SCH ×6 (01:48→23:13)
[2019-11-26] MEDS: ACETYLCYSTEINE 10 %(100MG/ML) SOL 4ML NEB SCH ×6 (01:48→23:13)
[2019-11-26] MEDS: IPRATROPIUM BROM 0.5 MG/2.5ML INH SOL NEB SCH ×6 (01:48→23:13)
--- NOTE | 2019-11-26 03:04 | NUR ---
BED BATH WITH CHG WIPES, MATA CARE, GABRIEL CARE, ORAL CARE, AND PARTIAL LINEN CHANGE
--- NOTE | 2019-11-26 03:04 | NUR ---
DESATURATED DOWN TO 88% WITH LINEN CHANGE BUT RECOVERED TO 93% WITH REST
--- NOTE | 2019-11-26 03:20 | NUR ---
TREMORS/SHIVERING NOTED AFTER BATH - WILL GIVE PRN ATIVAN.
[2019-11-26] MEDS: LORazepam 2MG/ML-1ML VIAL IV PRN (03:28)
[2019-11-26] MEDS: MIDAZOLAM DRIP 50 mg/50mL 50 ML IV SCH ×4 (04:42→19:30)
[2019-11-26 04:45] LABS: Albumin 2.7 g/dL (3.4-5.0); Potassium 3.2 mmol/L (3.5-5.1)
[2019-11-26 04:48] LABS: BUN/Creatinine Ratio 48.4; Magnesium 2.4 mg/dL (1.6-2.6)
[2019-11-26 04:51] LABS: Bilirubin, Total 1.3 mg/dL (0.2-1.0); Phosphorus 6.1 mg/dL (2.5-4.90); Total Protein 9.8 g/dL (6.4-8.2)
[2019-11-26] MEDS: METOCLOPRAMIDE HCL 5MG/ml INJ 2ml VIAL IV SCH ×3 (05:50→22:00)
[2019-11-26] MEDS: InsuLIN REG 1unit/0.01ml Soln (100units/ml) SC SCH ×3 (06:00→18:00)
[2019-11-26] MEDS: ACCU-CHEK COMFORT CURVE STRIP VI SCH ×3 (06:14→18:00)
[2019-11-26] MEDS: PIPERACILLIN-TAZO 4.5GM 100 ML IV SCH ×3 (06:26→22:53)
--- NOTE | 2019-11-26 07:06 | NUR ---
REPORT AND CARE ENDORSED TO ROSE MERINO
--- NOTE | 2019-11-26 07:12 | NUR ---
REPORT AND CARE ENDORSED TO ROSE STERLING Addendum: 11/26/19 at 0713 by Shanika Knight RN RN MISTAKEN ENTRY
--- NOTE | 2019-11-26 07:40 | NUR ---
OPENING Report received from JEN Voss. Care initiated and initial assessment complete.
--- NOTE | 2019-11-26 08:30 | NUR ---
FAMILY UPDATED Updated patients sister on patients status and patients care. Permission received from Elle to cut patients phan off for hygienic purposes.
[2019-11-26] MEDS: DexMEDEtomidine 400 MCG in D5W 5% 96 ML IV SCH ×2 (09:19→22:06)
[2019-11-26] MEDS: PANTOPRAZOLE 40 MG/10 ML VIAL INJ IV SCH (10:00)
[2019-11-26] MEDS: SODIUM CHLOR 0.9% PF (SALINE LOCK) 10ML VIAL/SYR IV SCH ×2 (10:00→22:00)
[2019-11-26] MEDS: POTASSIUM EFFERVESENT TAB 25 MEQ PO SCH ×2 (10:00→22:00)
--- NOTE | 2019-11-26 10:35 | NUR ---
SPOKE TO CASE MANAGEMENT Patient has a bed at [facility]. Patient can go after 1900 tonight. Made case finisher Shilpa aware that patients FIO2 has increased.
--- NOTE | 2019-11-26 10:45 | NUR ---
SPOKE TO MD Spoke to Dr. Emmy Mason. Updated him on patients status and bed at [facility]. MD aware that patients FIO2 has increased.
--- NOTE | 2019-11-26 11:00 | NUR ---
SPOKE TO MD Spoke to Dr. Emmy Castillo. New orders read back and verified.
[2019-11-26] MEDS ORDERED: MICAFUNGIN SODIUM 100 MG in SODIUM CHL 0.9% 100 ML IV ONE (11:15)
[2019-11-26] MEDS: POTASSIUM CHL 20MEQ/100ML 100 ML IV SCH ×3 (12:13→15:00)
[2019-11-26] MEDS: BUMETANIDE INJECTION 25 MG in GIVE UN-DILUTED 0 ML IV SCH (13:56)
--- NOTE | 2019-11-26 14:45 | NUR ---
SPOKE TO MD Spoke to Dr. Elizabeth about patients transfer. Patient will not be transferred today d/t need of Pleur X drain. Orders obtained and verified for Pleur X to be placed tomorrow Sunday 11/26 by radiologist. Radiologist consult placed.
--- NOTE | 2019-11-26 14:50 | NUR ---
SPOKE TO Spoke to Dr. William Mason and made him aware that Dr. Elizabeth ordered patient to stay one more day and receive Pleur X drain. MD informed me that he spoke with Clara already.
--- NOTE | 2019-11-26 15:55 | NUR ---
CONSENT OBTAINED Spoke to patients sister Elle, obtained consent and verified with another RN on the unit. Consent placed in chart.
--- NOTE | 2019-11-26 16:45 | NUR ---
BEDSIDE Dr. Mason bedside. No new orders received.
[2019-11-26] MEDS ORDERED: TPN*HIGH CONC* PER PHARMACY IV NR ×7 (20:00)
[2019-11-27] VITALS (91 sets, daily range): BP systolic 95–145; BP diastolic 51–105
[2019-11-27] MEDS: PROPOFOL 100 ML IV SCH ×8 (00:10→21:37)
[2019-11-27] MEDS: NOREPINEPHRINE 8 MG/250ML KIT 250 ML IV SCH (00:24)
[2019-11-27] MEDS: InsuLIN REG 1unit/0.01ml Soln (100units/ml) SC SCH ×4 (00:35→18:00)
[2019-11-27] MEDS: MIDAZOLAM DRIP 50 mg/50mL 50 ML IV SCH ×4 (00:37→21:37)
[2019-11-27] MEDS: LINEZOLID 600MG/300ML 300 ML IV SCH ×2 (01:00→12:18)
[2019-11-27] MEDS: IPRATROPIUM BROM 0.5 MG/2.5ML INH SOL NEB SCH ×4 (01:52→18:26)
[2019-11-27] MEDS: ALBUTEROL SULF 2.5 MG/0.5ML(0.5%) NEB SOLN NEB SCH ×4 (01:52→18:26)
[2019-11-27] MEDS: ACETYLCYSTEINE 10 %(100MG/ML) SOL 4ML NEB SCH ×4 (01:53→18:27)
[2019-11-27 04:30] LABS: Albumin 2.5 g/dL (3.4-5.0); Calcium 9.9 mg/dL (8.5-10.1); Magnesium 2.6 mg/dL (1.6-2.6); Potassium 3.5 mmol/L (3.5-5.1)
[2019-11-27 04:34] LABS: BUN/Creatinine Ratio 53.4; Bilirubin, Total 1.3 mg/dL (0.2-1.0); Phosphorus 6.4 mg/dL (2.5-4.90); Total Protein 9.5 g/dL (6.4-8.2)
[2019-11-27] MEDS: METOCLOPRAMIDE HCL 5MG/ml INJ 2ml VIAL IV SCH ×2 (05:09→15:51)
[2019-11-27] MEDS: ACCU-CHEK COMFORT CURVE STRIP VI SCH ×4 (05:10→18:00)
[2019-11-27] MEDS: PIPERACILLIN-TAZO 4.5GM 100 ML IV SCH ×2 (06:51→15:51)
--- NOTE | 2019-11-27 08:00 | NUR ---
PROCEDURE CLARIFICATION RADIOLOGIST CALLED TO VERIFY IF PATIENT IS GOING TO HAVE DRAIN INSERTED BY DRY CLEANER PRESSER OR RADIOLOGIST. MD PAGED TO VERIFY. AWAITING CALLBACK.
--- NOTE | 2019-11-27 08:28 | NUR ---
REPAGED RE: PROCEDURE MD REPAGED RE: PROCEDURE AND IF RADIOLOGIST OR HE, HIMSELF IS GOING TO PERFORM PROCEDURE.
--- NOTE | 2019-11-27 08:51 | NUR ---
CALLED BACK CALLED BACK STATING DR. GALVIN IS TO INSERT A CATHETER FOR EMPYEMA. ORDER REPLACED. RADIOLOGIST NURSE AWARE.
[2019-11-27] MEDS: PANTOPRAZOLE 40 MG/10 ML VIAL INJ IV SCH (09:03)
[2019-11-27] MEDS: SODIUM CHLOR 0.9% PF (SALINE LOCK) 10ML VIAL/SYR IV SCH (09:04)
--- NOTE | 2019-11-27 09:38 | NUR ---
DIRECTOR OF CASEWORK UPDATED DIRECTOR OF CASEWORK CALLED TO UPDATE NO TRANSFER LAST NIGHT. S.S AWARE OF POSSIBLE CHEST TUBE INSERTION. S.S TO BE CALLED ONCE CHEST TUBE INSERTED OR RESULTS.
--- NOTE | 2019-11-27 09:40 | NUR ---
Family updated on pt status Family of ELAINEKAREN updated on patient's status and condition. All questions and concerns addressed. Sister, Elle verbalized understanding.
[2019-11-27] MEDS ORDERED: MICAFUNGIN SODIUM 100 MG in SODIUM CHL 0.9% 100 ML IV SCH (10:00)
[2019-11-27] MEDS: DexMEDEtomidine 400 MCG in D5W 5% 96 ML IV SCH (10:53)
--- NOTE | 2019-11-27 11:41 | NUR ---
Nutrition Followup Notes wt: 143.0 kg Pt`s intubated, sedated with propofol running at 43.545 ml/hr, providing 1150 additional kcals from lipids. Pt is currently NPO, on TPN support @ 71 ml/hr providing 1136 kcal, 130g protein, 618 NCP. This provides 101-127% of energy needs and 71-89% of protein needs. Pt is awaiting possible chest tube placement, pt is also awaiting transfer to inpatient rehab facility. Est Energy needs: 9202-7520 kcals (12-15 kcal/kgBW), Est Protein needs: 145-182 gms/day (2.0-2.5 gm/kgIBW) d/t pt adiposity. Will continue to monitor and reassess prn. LABS: BUN 62H, GLUC 142H, Alb 2.5L GI: Pt with gastric drainage 200 ml 11/26 per RN doc. BS: 13 mod risk. Please refer to wound assessment report for full details. PES: 1) Increased nutrient needs aeb pt is sedated, intubated, NPO r/t pt with no PO intake 2) Obesity aeb 206% IBW and BMI of 48.8 kg/m2 r/t energy intake in excess of energy needs 3) Altered nutrient related lab values hypernatremia, chloremia, eleb CO2, hyperglycemia, eleb Bili, elev Trigly, mod hypoalbuminemia r/t current medical condition Comments 1) Advanced PN support to meet > 75% of needs. 2) Gradually advance pt to oral diet when medically feasible and as tolerated. 4) Refer pt to RD for nutrition education upon D/C. 5) Continue current plan of care
--- NOTE | 2019-11-27 12:02 | NUR ---
NURSES ASSISTANT PAGED DR. VINCENT PAGED TO NOTIFY PER RADIOLOGIST, THERE IS NOT ENOUGH FLUID TO TAP POST CHEST U/S. AWAITING MD TO CALLBACK AND DETERMINE IF OK TO DISCHARGE PREVIOUSLY ORDERED.
[2019-11-27] MEDS: POTASSIUM EFFERVESENT TAB 25 MEQ PO SCH ×2 (12:32→20:03)
--- NOTE | 2019-11-27 14:02 | NUR ---
Respiratory note: ROUTINE VENT CHECK DONE. TITRATED FIO2 TO 60%. PT TOLERATING WELL AT THIS TIME. PT'S BREATH SOUNDS ARE COARSE, SUCTION MODERATE THICK CREAMY YELLOW SECRETIONS.
--- NOTE | 2019-11-27 14:43 | NUR ---
TREMORS PATIENT NOTED TO HAVE EYES OPEN, NOT TRACKING OR ABLE TO FOLLOW SIMPLE COMMANDS, UPPER BODY TREMORS NOTED. CALMING TECHNIQUES USED. WILL CONTINUE TO MONITOR. IF FURTHER TREMORS NOTED ATIVAN TO BE ADMINISTERED.
--- NOTE | 2019-11-27 15:23 | NUR ---
D/C Planning Received a follow up called from Shanel with [facility] ) advising me patient has been accepted to [facility] in [place] to ICU room 3 accepting , Dr. Dubon, Phone number for Nurse to give report is ). Informed RN Jacqueline in ICU. [facility] has been arranged for 20:00 ) with CCT care for vent monitor, oxygen monitor, laboratory monitor and TPN care.
--- NOTE | 2019-11-27 15:32 | NUR ---
ENTRY LEVEL [facility] CALLED. BED OBTAINED, SEE S.S NOTE WITH INFO. [facility] TO CALL AT APPROX 1800 TO VERIFY GAMB CUTTER THEY ARE SHORT STAFFED AND TIME COULD CHANGE. FAMILY CALLED TO NOTIFY WITH TRANSFER INFORMATION.
[2019-11-27] MEDS: BUMETANIDE INJECTION 25 MG in GIVE UN-DILUTED 0 ML IV SCH (15:51)
--- NOTE | 2019-11-27 16:30 | NUR ---
legal recruiter at bedside Dr. Elizabeth updated on small fluids via u/s. Md leigh with transfer to [facility]. Bumex drip to be stopped.
--- NOTE | 2019-11-27 16:32 | NUR ---
D/C PICTURES TAKEN. MATA CARE PROVIDED. RECTAL DRAIN REMOVED, SMALL- MODERATE MUCOUS NOTED SURROUNDING TUBE DURING REMOVAL. APPROX 30C OF LIQUID BROWN STOOLS NOTED IN TUBING.
--- NOTE | 2019-11-27 19:45 | NUR ---
RECEIVED REPORT FROM DAY RN, TRANSFER PAPERWORK REVIEWED TOGETHER. [facility] TO ARRIVE AT APPROX 1999. PT'S NEW TPN HYNG, AND EVENING DOSE OF KCL GIVEN. PT IS SEDATED, VS STABLE.
[2019-11-27] MEDS ORDERED: TPN*HIGH CONC* PER PHARMACY IV NR ×5 (20:00)
--- NOTE | 2019-11-27 20:15 | NUR ---
[facility] HERE TO [facility] EQUIPMENT SERVICER PATIENT. GIVEN REPORT TO RECEIVING STOCKBROKING DEALER VARSHA AT [place] AND TO RN ISSA Perera THE TRANSPORT NURSE. PT TO GO TO ICU RM 3 AT [facility].ASSISTED THE TRANSPORT TEAM IN PREPARATIONS FOR PATIENT DISCHARGE. THE PACKAGE INCLUDING THE CD HANDED TO THE PANEL COVERER. MADE SURE THAT ALL DRIPS ARE ENOUGHT TO LAST FOR THE TIME OF TRANSPORTATION.
--- NOTE | 2019-11-27 21:30 | NUR ---
DR FOUNTAIN UPDATED ON PT'S CONDITION AT THE TIME F TRANSFER. PT PLACED ON THE GURNAY, LEAVING THE HOSPITAL OM MONITOR AND MECHANICALLY VENTILATED, IN STABLE CONDITION. NO BELONGINGS TO ACCOMPANY THE PATIENT
== END 2019-11-27 21:30 | DRG 720 ==
LOC: ER 19:08 → EDBD 19:08 → TELE 19:09 → ICU WEST 11-05 03:14
PROVIDERS: ADMIT Hospitalist; ATTEND Internal Medicine
PROC: 02HV33Z Insertion of Infusion Device into Superior Vena Cava, Percutaneous Approach (ICD-10-PCS; 2019-11-05)
PROC: B548ZZA Ultrasonography of Superior Vena Cava, Guidance (ICD-10-PCS; 2019-11-05)
PROC: 0B9B8ZZ Drainage of Left Lower Lobe Bronchus, Via Natural or Artificial Opening Endoscopic (ICD-10-PCS; 2019-11-09)
PROC: 3E0436Z Introduction of Nutritional Substance into Central Vein, Percutaneous Approach (ICD-10-PCS; 2019-11-10)
PROC: 5A1955Z Respiratory Ventilation, Greater than 96 Consecutive Hours (ICD-10-PCS; principal; 2019-11-14)
PROC: 0BH17EZ Insertion of Endotracheal Airway into Trachea, Via Natural or Artificial Opening (ICD-10-PCS; 2019-11-14)
PROC: 0B9B8ZZ Drainage of Left Lower Lobe Bronchus, Via Natural or Artificial Opening Endoscopic (ICD-10-PCS; 2019-11-16)
PROC: 0B968ZZ Drainage of Right Lower Lobe Bronchus, Via Natural or Artificial Opening Endoscopic (ICD-10-PCS; 2019-11-16)
PROC: 0B9B8ZX Drainage of Left Lower Lobe Bronchus, Via Natural or Artificial Opening Endoscopic, Diagnostic (ICD-10-PCS; 2019-11-18)
PROC: 0B968ZX Drainage of Right Lower Lobe Bronchus, Via Natural or Artificial Opening Endoscopic, Diagnostic (ICD-10-PCS; 2019-11-18)
PROC: 0BCB8ZZ Extirpation of Matter from Left Lower Lobe Bronchus, Via Natural or Artificial Opening Endoscopic (ICD-10-PCS; 2019-11-18)
PROC: 0BC68ZZ Extirpation of Matter from Right Lower Lobe Bronchus, Via Natural or Artificial Opening Endoscopic (ICD-10-PCS; 2019-11-18)
DX: A41.9 Sepsis, unspecified organism (principal); J96.21 Acute and chronic respiratory failure with hypoxia; R65.21 Severe sepsis with septic shock; E43 Unspecified severe protein-calorie malnutrition; J15.212 Pneumonia due to Methicillin resistant Staphylococcus aureus; E66.01 Morbid (severe) obesity due to excess calories; I42.9 Cardiomyopathy, unspecified; J90 Pleural effusion, not elsewhere classified; J44.0 Chronic obstructive pulmonary disease with (acute) lower respiratory infection; E87.2 Acidosis; J44.1 Chronic obstructive pulmonary disease with (acute) exacerbation; E87.6 Hypokalemia; N39.0 Urinary tract infection, site not specified; E87.1 Hypo-osmolality and hyponatremia; J39.8 Other specified diseases of upper respiratory tract; F15.20 Other stimulant dependence, uncomplicated; J98.11 Atelectasis; I11.0 Hypertensive heart disease with heart failure; J96.22 Acute and chronic respiratory failure with hypercapnia; K56.7 Ileus, unspecified; R16.0 Hepatomegaly, not elsewhere classified; Z68.43 Body mass index [BMI] 50.0-59.9, adult; Z99.11 Dependence on respirator [ventilator] status; Z88.5 Allergy status to narcotic agent; I50.21 Acute systolic (congestive) heart failure; Z20.828 Contact with and (suspected) exposure to other viral communicable diseases
CPT/HCPCS: 31500; 31635; 31645; 36415; 36569; 36600; 71045; 71275; 74018; 74177; 76604; 80048; 80053; 80061; 80076; 80202; 80307; 81001; 82040; 82565; 82805; 82962; 83036; 83605; 83735; 83880; 84075; 84100; 84132; 84450; 84460; 84478; 84484; 84550; 85007; 85025; 85027; 85379; 85610; 85730; 86160; 86850; 86900; 86901; 87040; 87070; 87077; 87081; 87086; 87186; 87205; 87804; 87880; 93005; 93306; 93970; 94002; 94003; 94640; A4618; C9113; G0378; J0171; J0330; J0696; J1815; J2248; J2250; J2405; J2543; J2704; J3480; J7060; J7131

== ENCOUNTER 2021-01-06 12:14 | Inpatient (IN) | payer MEDICAID ==
[~2021-01-06] VITALS: Ht 177.8 cm; Wt 187.0 kg
[2021-01-06 12:32] VITALS: BP 139/84
[2021-01-06] MEDS: MIDAZOLAM DRIP 50 mg/50mL 50 ML IV SCH (12:33)
[2021-01-06 12:36] LABS: Basophils # (auto) 0.1 10 ^3/uL (0-0.2); Basophils % (auto) 0.6 % (0.0-2.0); Eosinophils % (auto) 0.3 % (0.0-7.0); Monocytes # (auto) 2.3 10 ^3/uL (0-1.3)
[2021-01-06 12:37] LABS: Eosinophils # (auto) 0.1 10 ^3/uL (0-0.8); Hemoglobin 17.6 g/dL (13.5-17.5); Lymphocytes # (auto) 1.2 10 ^3/uL (0.4-5.4); Lymphocytes % (auto) 6.8 % (10.0-50.0); Mean Corpuscular Hemoglobin 26.8 pg (28.0-32.0); Mean Corpuscular Hgb Conc. 30.6 g/dL (32.0-36.0); Mean Corpuscular Volume 87.6 fL (80.0-100.0); Monocytes % (auto) 12.4 % (0.0-12.0); Neutrophils # (auto) 14.7 10 ^3/uL (1.6-8.6); Neutrophils % (auto) 79.9 % (37.0-80.0); Nucleated Red Blood Cells % 2.4 %; Red Blood Cells 6.59 10^6/uL (4.5-5.90); Red Cell Distribution Width 18.4 % (11.8-14.3); White Blood Cell 18.3 10^3/uL (4.4-10.8)
[2021-01-06 12:38] LABS: Hematocrit 57.7 % (41.0-53.0)
[2021-01-06] MEDS ORDERED: ETOMIDATE (2MG/ML) 20ML VIAL IV ONE (12:45)
[2021-01-06] MEDS ORDERED: SUCCINYLCHOLINE CHLORIDE 20 MG/ML 10ML VIAL IV ONE (12:45)
[2021-01-06] MEDS ORDERED: FUROSEMIDE 40 MG/4 ML VIAL IV ONE (13:00)
[2021-01-06] MEDS ORDERED: ALBUTEROL SULF 2.5 MG/0.5ML(0.5%) NEB SOLN NEB ONE ×2 (13:00→14:15)
[2021-01-06] MEDS ORDERED: CLINDAMYCIN 900MG IV 50 ML IV ONE (13:00)
[2021-01-06] MEDS ORDERED: SODIUM CHLORIDE 0.9% 1,000 ML IV ONE ×3 (13:00→19:30)
[2021-01-06] MEDS ORDERED: IPRATROPIUM BROM 0.5 MG/2.5ML INH SOL NEB ONE (13:00)
[2021-01-06] MEDS ORDERED: cefTRIAXone 1GM/50ML D5W 50 ML IV ONE (13:00)
[2021-01-06] MEDS ORDERED: methylPREDNISolone SOD SUCC 125 MG/2 ML VL IV ONE (13:00)
[2021-01-06 13:01] LABS: Albumin 3.2 g/dL (3.4-5.0); Calcium 8.4 mg/dL (8.5-10.1)
[2021-01-06 13:05] LABS: BUN/Creatinine Ratio 6.2; Bilirubin, Total 0.4 mg/dL (0.2-1.0); Total Protein 9.6 g/dL (6.4-8.2)
[2021-01-06 13:10] LABS: Potassium 5.9 mmol/L (3.5-5.1)
[2021-01-06 13:11] VITALS: BP 105/43
[2021-01-06 13:46] LABS: Lactic Acid w/Reflex 3.1 mmol/L (0.4-2.0)
[2021-01-06] MEDS ORDERED: DEXTROSE (50%) 50ML SYRG IV ONE (14:15)
[2021-01-06] MEDS ORDERED: SODIUM ZIRCONIUM CYCL 10 GM PAK PO ONE (14:15)
[2021-01-06] MEDS ORDERED: SODIUM BICARBONATE 8.4% INJ 50ML SYRINGE IV ONE (14:15)
[2021-01-06] MEDS ORDERED: CALCIUM GLUC 1,000mg/50ml-NS 50 ML IV ONE (14:15)
[2021-01-06] MEDS ORDERED: InsuLIN REG 1unit/0.01ml Soln (100units/ml) IV ONE (14:15)
[2021-01-06 14:38] LABS: INR 1.06 (0.9-1.15); Partial Thromboplastin Time 26.2 sec (23.6-33.0)
[2021-01-06 15:41] VITALS: BP 104/35
[2021-01-06] MEDS ORDERED: NOREPINEPHRINE 8 MG/250ML KIT 250 ML IV ONE (16:11)
[2021-01-06] MEDS: NOREPINEPHRINE 8 MG/250ML KIT 250 ML IV SCH (16:19)
[2021-01-06] MEDS ORDERED: ENOXAPARIN SOD 150 MG/1 ML SYRINGE SC ONE (17:30)
[2021-01-06 18:35] VITALS: BP 125/81
[2021-01-06] MEDS ORDERED: ACETAMINOPHEN 325 MG RECT SUPP PR PRN (19:30)
[2021-01-06] MEDS ORDERED: SODIUM CHLORIDE 0.9% 500 ML IV ONE (19:30)
[2021-01-06] MEDS ORDERED: DEXTROSE (50%) 50ML SYRG IV PRN (19:30)
[2021-01-06] MEDS ORDERED: NITROGLYCERIN 0.4 MG SL TAB SL PRN (19:30)
[2021-01-06] MEDS ORDERED: TETANUS-DIPTH-ACEL PERTUSSIS 0.5ML SYR Tdap IM ONE (19:30)
[2021-01-06 20:59] VITALS: BP 131/62
[2021-01-06 21:58] VITALS: BP 127/62
[2021-01-06] MEDS ORDERED: fentaNYL Drip 2500mCg/250mlNS 250 ML IV ONE (22:41)
[2021-01-06] MEDS: fentaNYL Drip 2500mCg/250mlNS 250 ML IV SCH (23:00)
[2021-01-06 23:51] LABS: Potassium 5.4 mmol/L (3.5-5.1)
[2021-01-07] VITALS (48 sets, daily range): BP systolic 90–136; BP diastolic 35–76
[2021-01-07] MEDS: MIDAZOLAM DRIP 50 mg/50mL 50 ML IV SCH ×5 (01:00→23:15)
[2021-01-07] MEDS: SODIUM CHLORIDE 0.9% 1,000 ML IV SCH ×4 (01:05→23:00)
[2021-01-07] MEDS: InsuLIN REG 1unit/0.01ml Soln (100units/ml) SC SCH ×8 (01:06→23:44)
[2021-01-07] MEDS: ACCU-CHEK COMFORT CURVE STRIP VI SCH ×8 (01:07→23:44)
[2021-01-07] MEDS: MEROPENEM 1GM IVPB 100 ML IV SCH ×4 (01:07→22:29)
[2021-01-07] MEDS: INSULIN LANTUS (GLARGINE) 1 /0.01ml (100units/ml) SC SCH ×2 (01:08→22:30)
[2021-01-07 07:14] LABS: Basophils # (auto) 0 10 ^3/uL (0-0.2); Basophils % (auto) 0.3 % (0.0-2.0); Eosinophils # (auto) 0 10 ^3/uL (0-0.8); Eosinophils % (auto) 0.1 % (0.0-7.0); Lymphocytes # (auto) 0.9 10 ^3/uL (0.4-5.4); Monocytes # (auto) 1.1 10 ^3/uL (0-1.3); Neutrophils % (auto) 81.7 % (37.0-80.0); Nucleated Red Blood Cells % 0.3 %
[2021-01-07 07:16] LABS: Hematocrit 47.3 % (41.0-53.0); Hemoglobin 15.1 g/dL (13.5-17.5); Lymphocytes % (auto) 7.7 % (10.0-50.0); Mean Corpuscular Hemoglobin 26.6 pg (28.0-32.0); Mean Corpuscular Volume 83.1 fL (80.0-100.0); Monocytes % (auto) 10.2 % (0.0-12.0); Neutrophils # (auto) 9.1 10 ^3/uL (1.6-8.6); Red Blood Cells 5.69 10^6/uL (4.5-5.90); Red Cell Distribution Width 17.8 % (11.8-14.3); White Blood Cell 11.1 10^3/uL (4.4-10.8)
[2021-01-07 07:26] LABS: Calcium 7.7 mg/dL (8.5-10.1); Potassium 4.8 mmol/L (3.5-5.1)
[2021-01-07 07:31] LABS: INR 1.08 (0.9-1.15)
[2021-01-07 07:33] LABS: BUN/Creatinine Ratio 13.6; Bilirubin, Total 0.3 mg/dL (0.2-1.0); Total Protein 6.7 g/dL (6.4-8.2)
[2021-01-07] MEDS: levoFLOXacin 500MG 100 ML IV SCH (09:30)
[2021-01-07] MEDS: ENOXAPARIN SOD 40 MG/0.4 ML SYRINGE SC SCH (09:31)
[2021-01-07] MEDS: PANTOPRAZOLE 40 MG/10 ML VIAL INJ IV SCH (09:31)
[2021-01-07] MEDS: fentaNYL Drip 2500mCg/250mlNS 250 ML IV SCH ×2 (10:36→22:10)
[2021-01-07 12:09] LABS: Albumin 2.1 g/dL (3.4-5.0); Calcium 7.8 mg/dL (8.5-10.1); Potassium 4.4 mmol/L (3.5-5.1)
[2021-01-07 12:24] LABS: BUN/Creatinine Ratio 15.8; Bilirubin, Total 0.3 mg/dL (0.2-1.0); Total Protein 6.6 g/dL (6.4-8.2)
[2021-01-07 15:07] LABS: Magnesium 2.1 mg/dL (1.6-2.6); Phosphorus 3.6 mg/dL (2.5-4.90)
[2021-01-07 15:57] LABS: Urine Amorphous Crystal FEW /hpf (None Seen); Urine Bacteria FEW /hpf (None Seen); Urine Blood 3+ /uL (Negative); Urine Mucus FEW (None Seen); Urine Specific Gravity 1.019 (1.001-1.035); Urine WBC 22 /hpf (0 - 3); Urine WBC Clumps PRESENT /hpf (None Seen)
[2021-01-07] MEDS: NOREPINEPHRINE 8 MG/250ML KIT 250 ML IV SCH (16:15)
[2021-01-07 16:18] LABS: Protein, Urine 216.4 mg/dL (0.0-11.9)
[2021-01-07] MEDS: PROPOFOL 100 ML IV SCH (20:07)
[2021-01-07] MEDS ORDERED: VANCOMYCIN 1GM/250ML 250 ML IV ONE (20:22)
[2021-01-08] VITALS (102 sets, daily range): BP systolic 90–142; BP diastolic 35–81
[2021-01-08] MEDS: MIDAZOLAM DRIP 50 mg/50mL 50 ML IV SCH ×6 (02:45→22:11)
[2021-01-08] MEDS: ACCU-CHEK COMFORT CURVE STRIP VI SCH ×6 (03:41→23:57)
[2021-01-08] MEDS: InsuLIN REG 1unit/0.01ml Soln (100units/ml) SC SCH ×6 (03:41→23:58)
[2021-01-08 04:20] LABS: Basophils # (auto) 0.1 10 ^3/uL (0-0.2); Eosinophils # (auto) 0.1 10 ^3/uL (0-0.8); Eosinophils % (auto) 1.1 % (0.0-7.0); Mean Corpuscular Hemoglobin 26.7 pg (28.0-32.0); Nucleated Red Blood Cells % 0.2 %; White Blood Cell 10.3 10^3/uL (4.4-10.8)
[2021-01-08 04:22] LABS: Basophils % (auto) 0.5 % (0.0-2.0); Hematocrit 45.1 % (41.0-53.0); Hemoglobin 14.6 g/dL (13.5-17.5); Lymphocytes # (auto) 1.4 10 ^3/uL (0.4-5.4); Lymphocytes % (auto) 13.2 % (10.0-50.0); Mean Corpuscular Hgb Conc. 32.4 g/dL (32.0-36.0); Mean Corpuscular Volume 82.6 fL (80.0-100.0); Monocytes % (auto) 9.4 % (0.0-12.0); Neutrophils # (auto) 7.8 10 ^3/uL (1.6-8.6); Neutrophils % (auto) 75.8 % (37.0-80.0); Red Blood Cells 5.47 10^6/uL (4.5-5.90); Red Cell Distribution Width 17.9 % (11.8-14.3)
[2021-01-08] MEDS: MEROPENEM 1GM IVPB 100 ML IV SCH ×3 (05:56→22:11)
[2021-01-08] MEDS: PROPOFOL 100 ML IV SCH ×7 (05:57→22:10)
[2021-01-08] MEDS: fentaNYL Drip 2500mCg/250mlNS 250 ML IV SCH ×3 (10:30→20:18)
[2021-01-08] MEDS: DOPamine 1600MCG/ML D5W 250 ML IV SCH (10:53)
[2021-01-08] MEDS: PANTOPRAZOLE 40 MG/10 ML VIAL INJ IV SCH (10:53)
[2021-01-08] MEDS: ENOXAPARIN SOD 40 MG/0.4 ML SYRINGE SC SCH (10:53)
[2021-01-08] MEDS: levoFLOXacin 500MG 100 ML IV SCH (10:53)
[2021-01-08 11:57] LABS: Calcium 8.2 mg/dL (8.5-10.1); Potassium 4.4 mmol/L (3.5-5.1)
[2021-01-08 12:01] LABS: BUN/Creatinine Ratio 23.3; Bilirubin, Total 0.3 mg/dL (0.2-1.0); Total Protein 6.6 g/dL (6.4-8.2)
[2021-01-08] MEDS: SODIUM CHLORIDE 0.9% 1,000 ML IV SCH (13:00)
[2021-01-08] MEDS ORDERED: FUROSEMIDE 40 MG/4 ML VIAL IV ONE (15:15)
[2021-01-08] MEDS ORDERED: FUROSEMIDE 40 MG/4 ML VIAL ONE (15:30)
[2021-01-08] MEDS ORDERED: ROCURONIUM 10MG/ML 10ML VIAL IV ONE ×2 (16:00→16:08)
[2021-01-08] MEDS: NOREPINEPHRINE 8 MG/250ML KIT 250 ML IV SCH (16:15)
[2021-01-08] MEDS: INSULIN LANTUS (GLARGINE) 1 /0.01ml (100units/ml) SC SCH (22:21)
[2021-01-09] VITALS (101 sets, daily range): BP systolic 95–121; BP diastolic 46–69
[2021-01-09] MEDS: PROPOFOL 100 ML IV SCH ×12 (00:01→23:58)
[2021-01-09] MEDS: MIDAZOLAM DRIP 50 mg/50mL 50 ML IV SCH ×4 (01:51→18:44)
[2021-01-09] MEDS: ACCU-CHEK COMFORT CURVE STRIP VI SCH ×6 (04:00→23:57)
[2021-01-09] MEDS: InsuLIN REG 1unit/0.01ml Soln (100units/ml) SC SCH ×6 (04:00→23:57)
[2021-01-09] MEDS: fentaNYL Drip 2500mCg/250mlNS 250 ML IV SCH ×3 (04:00→21:57)
[2021-01-09] MEDS: DOPamine 1600MCG/ML D5W 250 ML IV SCH ×2 (04:02→20:48)
[2021-01-09 04:23] LABS: Basophils # (auto) 0 10 ^3/uL (0-0.2); Basophils % (auto) 0.6 % (0.0-2.0); Eosinophils # (auto) 0.2 10 ^3/uL (0-0.8); Mean Corpuscular Hemoglobin 26.7 pg (28.0-32.0); Nucleated Red Blood Cells % 0.1 %
[2021-01-09 04:26] LABS: Eosinophils % (auto) 2.6 % (0.0-7.0); Hematocrit 42.9 % (41.0-53.0); Lymphocytes % (auto) 13.5 % (10.0-50.0); Mean Corpuscular Hgb Conc. 32.7 g/dL (32.0-36.0); Mean Corpuscular Volume 81.8 fL (80.0-100.0); Monocytes # (auto) 0.7 10 ^3/uL (0-1.3); Monocytes % (auto) 9.4 % (0.0-12.0); Neutrophils # (auto) 5.6 10 ^3/uL (1.6-8.6); Neutrophils % (auto) 73.9 % (37.0-80.0); Red Blood Cells 5.24 10^6/uL (4.5-5.90); Red Cell Distribution Width 18.1 % (11.8-14.3); White Blood Cell 7.6 10^3/uL (4.4-10.8)
[2021-01-09 04:49] LABS: BUN/Creatinine Ratio 25.7; Calcium 7.9 mg/dL (8.5-10.1)
[2021-01-09] MEDS: SODIUM CHLORIDE 0.9% 1,000 ML IV SCH ×3 (06:19→23:57)
[2021-01-09] MEDS: ENOXAPARIN SOD 40 MG/0.4 ML SYRINGE SC SCH (10:00)
[2021-01-09] MEDS: PANTOPRAZOLE 40 MG/10 ML VIAL INJ IV SCH (10:22)
[2021-01-09] MEDS: levoFLOXacin 500MG 100 ML IV SCH (10:22)
[2021-01-09] MEDS: FUROSEMIDE 40 MG/4 ML VIAL IV SCH (10:22)
[2021-01-09] MEDS: NOREPINEPHRINE 8 MG/250ML KIT 250 ML IV SCH (16:15)
[2021-01-09] MEDS ORDERED: VANCOMYCIN 1GM/250ML 250 ML IV ONE (17:30)
[2021-01-09] MEDS ORDERED: VANCOMYCIN PER PHARMACY 0 MG IV SCH (17:30)
[2021-01-09] MEDS: VANCOMYCIN 1GM/250ML 250 ML IV SCH (22:20)
[2021-01-09] MEDS: INSULIN LANTUS (GLARGINE) 1 /0.01ml (100units/ml) SC SCH (22:28)
[2021-01-10] VITALS (101 sets, daily range): BP systolic 101–134; BP diastolic 49–87
[2021-01-10] MEDS: PROPOFOL 100 ML IV SCH ×8 (00:46→22:24)
[2021-01-10] MEDS: MIDAZOLAM DRIP 50 mg/50mL 50 ML IV SCH ×3 (00:46→22:00)
[2021-01-10] MEDS: ACCU-CHEK COMFORT CURVE STRIP VI SCH ×6 (04:00→23:41)
[2021-01-10] MEDS: InsuLIN REG 1unit/0.01ml Soln (100units/ml) SC SCH ×6 (04:00→23:41)
[2021-01-10 04:40] LABS: Basophils # (auto) 0 10 ^3/uL (0-0.2); Eosinophils # (auto) 0.2 10 ^3/uL (0-0.8); Hemoglobin 14.3 g/dL (13.5-17.5); Monocytes # (auto) 0.6 10 ^3/uL (0-1.3); Red Cell Distribution Width 17.6 % (11.8-14.3)
[2021-01-10 04:44] LABS: Basophils % (auto) 0.4 % (0.0-2.0); Eosinophils % (auto) 2.1 % (0.0-7.0); Hematocrit 43.2 % (41.0-53.0); Lymphocytes # (auto) 0.9 10 ^3/uL (0.4-5.4); Lymphocytes % (auto) 11.2 % (10.0-50.0); Mean Corpuscular Hemoglobin 27.1 pg (28.0-32.0); Mean Corpuscular Hgb Conc. 33.1 g/dL (32.0-36.0); Monocytes % (auto) 7.8 % (0.0-12.0); Neutrophils % (auto) 78.5 % (37.0-80.0); Nucleated Red Blood Cells % 0.3 %; Red Blood Cells 5.28 10^6/uL (4.5-5.90); White Blood Cell 7.7 10^3/uL (4.4-10.8)
[2021-01-10] MEDS: fentaNYL Drip 2500mCg/250mlNS 250 ML IV SCH ×3 (04:47→23:40)
[2021-01-10 05:01] LABS: Albumin 1.9 g/dL (3.4-5.0); Calcium 8.2 mg/dL (8.5-10.1); Potassium 3.7 mmol/L (3.5-5.1)
[2021-01-10 05:04] LABS: BUN/Creatinine Ratio 25.3; Bilirubin, Total 0.5 mg/dL (0.2-1.0); Total Protein 6.6 g/dL (6.4-8.2)
[2021-01-10] MEDS: VANCOMYCIN 1GM/250ML 250 ML IV SCH ×3 (06:32→22:06)
[2021-01-10] MEDS: SODIUM CHLORIDE 0.9% 1,000 ML IV SCH ×2 (10:25→11:25)
[2021-01-10] MEDS: FUROSEMIDE 40 MG/4 ML VIAL IV SCH (10:34)
[2021-01-10] MEDS: PANTOPRAZOLE 40 MG/10 ML VIAL INJ IV SCH (10:34)
[2021-01-10] MEDS: ENOXAPARIN SOD 40 MG/0.4 ML SYRINGE SC SCH (10:34)
[2021-01-10] MEDS: levoFLOXacin 500MG 100 ML IV SCH (10:34)
[2021-01-10] MEDS: DOPamine 1600MCG/ML D5W 250 ML IV SCH (13:53)
[2021-01-10] MEDS: NOREPINEPHRINE 8 MG/250ML KIT 250 ML IV SCH (16:30)
[2021-01-10] MEDS: INSULIN LANTUS (GLARGINE) 1 /0.01ml (100units/ml) SC SCH (22:00)
[2021-01-11] VITALS (99 sets, daily range): BP systolic 100–153; BP diastolic 42–102
[2021-01-11] MEDS: SODIUM CHLORIDE 0.9% 1,000 ML IV SCH ×2 (00:10→19:30)
[2021-01-11] MEDS: MIDAZOLAM DRIP 50 mg/50mL 50 ML IV SCH ×6 (02:20→23:30)
[2021-01-11] MEDS: PROPOFOL 100 ML IV SCH ×7 (02:20→22:40)
[2021-01-11] MEDS: ACCU-CHEK COMFORT CURVE STRIP VI SCH ×6 (04:00→23:51)
[2021-01-11] MEDS: InsuLIN REG 1unit/0.01ml Soln (100units/ml) SC SCH ×6 (04:00→23:58)
[2021-01-11 04:28] LABS: BUN/Creatinine Ratio 20.7; Calcium 8.5 mg/dL (8.5-10.1); Potassium 3.8 mmol/L (3.5-5.1)
[2021-01-11 04:35] LABS: Basophils # (auto) 0.1 10 ^3/uL (0-0.2); Basophils % (auto) 0.7 % (0.0-2.0); Eosinophils # (auto) 0.2 10 ^3/uL (0-0.8); Eosinophils % (auto) 2.3 % (0.0-7.0); Hematocrit 44.6 % (41.0-53.0); Hemoglobin 14.3 g/dL (13.5-17.5); Lymphocytes # (auto) 0.7 10 ^3/uL (0.4-5.4); Lymphocytes % (auto) 6.9 % (10.0-50.0); Mean Corpuscular Hemoglobin 26.3 pg (28.0-32.0); Mean Corpuscular Hgb Conc. 32.1 g/dL (32.0-36.0); Mean Corpuscular Volume 81.9 fL (80.0-100.0); Monocytes # (auto) 0.7 10 ^3/uL (0-1.3); Monocytes % (auto) 7.5 % (0.0-12.0); Neutrophils % (auto) 82.6 % (37.0-80.0); Nucleated Red Blood Cells % 0.1 %; Red Blood Cells 5.44 10^6/uL (4.5-5.90); Red Cell Distribution Width 17.6 % (11.8-14.3); White Blood Cell 9.7 10^3/uL (4.4-10.8)
[2021-01-11] MEDS: VANCOMYCIN 1GM/250ML 250 ML IV SCH ×3 (06:00→22:04)
[2021-01-11] MEDS: DOPamine 1600MCG/ML D5W 250 ML IV SCH ×2 (06:01→23:30)
[2021-01-11] MEDS: levoFLOXacin 500MG 100 ML IV SCH (09:25)
[2021-01-11] MEDS: PANTOPRAZOLE 40 MG/10 ML VIAL INJ IV SCH (09:25)
[2021-01-11] MEDS: FUROSEMIDE 40 MG/4 ML VIAL IV SCH ×3 (09:25→22:04)
[2021-01-11] MEDS: ENOXAPARIN SOD 40 MG/0.4 ML SYRINGE SC SCH (09:25)
[2021-01-11] MEDS ORDERED: FUROSEMIDE INJECTION 100 MG in D5W 5% 100 ML IV SCH (10:45)
[2021-01-11] MEDS: fentaNYL Drip 2500mCg/250mlNS 250 ML IV SCH (12:19)
[2021-01-11] MEDS: ALBUTEROL SULF 2.5 MG/0.5ML(0.5%) NEB SOLN NEB PRN (13:55)
[2021-01-11] MEDS: IPRATROPIUM BROM 0.5 MG/2.5ML INH SOL NEB PRN (13:55)
[2021-01-11] MEDS: POTASSIUM CHL 20MEQ/100ML 100 ML IV SCH ×2 (14:07→15:21)
[2021-01-11] MEDS: NOREPINEPHRINE 8 MG/250ML KIT 250 ML IV SCH (16:15)
[2021-01-11] MEDS: INSULIN LANTUS (GLARGINE) 1 /0.01ml (100units/ml) SC SCH (22:00)
[2021-01-12] VITALS (101 sets, daily range): BP systolic 93–144; BP diastolic 46–92
[2021-01-12] MEDS: fentaNYL Drip 2500mCg/250mlNS 250 ML IV SCH ×2 (00:26→12:19)
[2021-01-12] MEDS: PROPOFOL 100 ML IV SCH ×8 (00:27→22:00)
[2021-01-12] MEDS: MIDAZOLAM DRIP 50 mg/50mL 50 ML IV SCH ×3 (03:30→19:30)
[2021-01-12] MEDS: InsuLIN REG 1unit/0.01ml Soln (100units/ml) SC SCH ×5 (04:00→20:00)
[2021-01-12] MEDS: ACCU-CHEK COMFORT CURVE STRIP VI SCH ×5 (04:00→20:03)
[2021-01-12 04:50] LABS: Basophils # (auto) 0 10 ^3/uL (0-0.2); Basophils % (auto) 0.4 % (0.0-2.0); Eosinophils # (auto) 0.4 10 ^3/uL (0-0.8); Eosinophils % (auto) 4.3 % (0.0-7.0); Hematocrit 42.7 % (41.0-53.0); Lymphocytes % (auto) 11.2 % (10.0-50.0); Mean Corpuscular Hemoglobin 26.8 pg (28.0-32.0); Mean Corpuscular Hgb Conc. 32.8 g/dL (32.0-36.0); Mean Corpuscular Volume 81.7 fL (80.0-100.0); Monocytes # (auto) 0.7 10 ^3/uL (0-1.3); Monocytes % (auto) 7.6 % (0.0-12.0); Neutrophils # (auto) 6.7 10 ^3/uL (1.6-8.6); Neutrophils % (auto) 76.5 % (37.0-80.0); Nucleated Red Blood Cells % 0.1 %; Red Blood Cells 5.23 10^6/uL (4.5-5.90); Red Cell Distribution Width 17.7 % (11.8-14.3); White Blood Cell 8.7 10^3/uL (4.4-10.8)
[2021-01-12 05:12] LABS: Potassium 3.5 mmol/L (3.5-5.1)
[2021-01-12 05:20] LABS: Calcium 8.7 mg/dL (8.5-10.1)
[2021-01-12] MEDS: SODIUM CHLORIDE 0.9% 1,000 ML IV SCH ×3 (05:45→20:00)
[2021-01-12] MEDS: VANCOMYCIN 1GM/250ML 250 ML IV SCH ×2 (05:46→14:00)
[2021-01-12] MEDS: FUROSEMIDE 40 MG/4 ML VIAL IV SCH ×3 (06:06→22:25)
[2021-01-12] MEDS: POTASSIUM CHL 20MEQ/100ML 100 ML IV SCH ×2 (09:43→12:52)
[2021-01-12] MEDS: levoFLOXacin 500MG 100 ML IV SCH (09:43)
[2021-01-12] MEDS: ENOXAPARIN SOD 40 MG/0.4 ML SYRINGE SC SCH (09:44)
[2021-01-12] MEDS: PANTOPRAZOLE 40 MG/10 ML VIAL INJ IV SCH (09:44)
[2021-01-12] MEDS: NOREPINEPHRINE 8 MG/250ML KIT 250 ML IV SCH (16:15)
[2021-01-12] MEDS: DOPamine 1600MCG/ML D5W 250 ML IV SCH (19:00)
[2021-01-12] MEDS: INSULIN LANTUS (GLARGINE) 1 /0.01ml (100units/ml) SC SCH (22:00)
[2021-01-12] MEDS: ALBUTEROL SULF 2.5 MG/0.5ML(0.5%) NEB SOLN NEB PRN (22:19)
[2021-01-12] MEDS: IPRATROPIUM BROM 0.5 MG/2.5ML INH SOL NEB PRN (22:19)
[2021-01-13] VITALS (104 sets, daily range): BP systolic 95–129; BP diastolic 50–83
[2021-01-13] MEDS: MIDAZOLAM DRIP 50 mg/50mL 50 ML IV SCH ×5 (00:30→21:01)
[2021-01-13] MEDS: VANCOMYCIN 1GM/250ML 250 ML IV SCH ×2 (02:03→14:24)
[2021-01-13] MEDS: PROPOFOL 100 ML IV SCH ×8 (02:04→21:40)
[2021-01-13] MEDS: InsuLIN REG 1unit/0.01ml Soln (100units/ml) SC SCH ×6 (04:00→20:00)
[2021-01-13] MEDS: ACCU-CHEK COMFORT CURVE STRIP VI SCH ×6 (04:00→20:18)
[2021-01-13 04:30] LABS: Hemoglobin 14.1 g/dL (13.5-17.5)
[2021-01-13 04:36] LABS: Hematocrit 42.5 % (41.0-53.0); Mean Corpuscular Hemoglobin 27.3 pg (28.0-32.0); Mean Corpuscular Hgb Conc. 33.1 g/dL (32.0-36.0); Mean Corpuscular Volume 82.6 fL (80.0-100.0); Red Blood Cells 5.14 10^6/uL (4.5-5.90); Red Cell Distribution Width 17.4 % (11.8-14.3); White Blood Cell 7.8 10^3/uL (4.4-10.8)
[2021-01-13 04:55] LABS: BUN/Creatinine Ratio 23.7; Calcium 8.8 mg/dL (8.5-10.1); Potassium 3.9 mmol/L (3.5-5.1)
[2021-01-13] MEDS: fentaNYL Drip 2500mCg/250mlNS 250 ML IV SCH ×2 (05:00→20:09)
[2021-01-13 05:06] LABS: Basophils % (manual) 0 (0.0-2.0); Blast Cells 0; Metamyelocytes % 0; Myelocytes % 0; Promyelocytes % 0; Reactive Lymphocytes 0
[2021-01-13] MEDS: FUROSEMIDE 40 MG/4 ML VIAL IV SCH ×3 (06:00→22:17)
[2021-01-13] MEDS: IPRATROPIUM BROM 0.5 MG/2.5ML INH SOL NEB PRN ×2 (06:26→17:56)
[2021-01-13] MEDS: ALBUTEROL SULF 2.5 MG/0.5ML(0.5%) NEB SOLN NEB PRN ×2 (06:26→17:56)
[2021-01-13 06:47] LABS: Band Neutrophils % (manual) 19; Eosinophils % (manual) 3 (0-7); Lymphocytes % (manual) 11 (10.0-50.0); Monocytes % (manual) 5 (0-12)
[2021-01-13] MEDS: PANTOPRAZOLE 40 MG/10 ML VIAL INJ IV SCH (10:16)
[2021-01-13] MEDS: levoFLOXacin 500MG 100 ML IV SCH (10:16)
[2021-01-13] MEDS: ENOXAPARIN SOD 40 MG/0.4 ML SYRINGE SC SCH (10:16)
[2021-01-13] MEDS: DOCUSATE ORAL LIQUID 100 MG/10 ML UD GT SCH ×2 (11:49→22:17)
[2021-01-13] MEDS: SODIUM CHLORIDE 0.9% 1,000 ML IV SCH ×2 (11:49→22:18)
[2021-01-13] MEDS: AMPICILLIN & SULBACTAM SODIUM 3 GM in SODIUM CHL 0.9% 100 ML IV SCH ×2 (12:00→18:04)
[2021-01-13] MEDS: NOREPINEPHRINE 8 MG/250ML KIT 250 ML IV SCH (16:15)
[2021-01-13] MEDS: INSULIN LANTUS (GLARGINE) 1 /0.01ml (100units/ml) SC SCH (21:41)
[2021-01-13] MEDS: LACTULOSE 20Gm/30ML SOLN PO SCH (22:18)
[2021-01-14] VITALS (97 sets, daily range): BP systolic 90–129; BP diastolic 41–84
[2021-01-14] MEDS: AMPICILLIN & SULBACTAM SODIUM 3 GM in SODIUM CHL 0.9% 100 ML IV SCH ×5 (00:05→23:39)
[2021-01-14] MEDS: ACCU-CHEK COMFORT CURVE STRIP VI SCH ×6 (00:06→21:37)
[2021-01-14] MEDS: MIDAZOLAM DRIP 50 mg/50mL 50 ML IV SCH ×3 (00:30→21:46)
[2021-01-14] MEDS: PROPOFOL 100 ML IV SCH ×6 (00:49→21:46)
[2021-01-14] MEDS: VANCOMYCIN 1GM/250ML 250 ML IV SCH ×2 (01:53→15:55)
[2021-01-14] MEDS: InsuLIN REG 1unit/0.01ml Soln (100units/ml) SC SCH ×6 (03:52→21:36)
[2021-01-14 04:34] LABS: Basophils # (auto) 0.1 10 ^3/uL (0-0.2); Basophils % (auto) 0.9 % (0.0-2.0); Eosinophils # (auto) 0.3 10 ^3/uL (0-0.8); Mean Corpuscular Volume 82.3 fL (80.0-100.0); Monocytes # (auto) 0.7 10 ^3/uL (0-1.3); Nucleated Red Blood Cells % 0.1 %
[2021-01-14 04:37] LABS: Eosinophils % (auto) 4.4 % (0.0-7.0); Hematocrit 44.5 % (41.0-53.0); Hemoglobin 14.3 g/dL (13.5-17.5); Lymphocytes # (auto) 0.6 10 ^3/uL (0.4-5.4); Lymphocytes % (auto) 7.6 % (10.0-50.0); Mean Corpuscular Hemoglobin 26.4 pg (28.0-32.0); Mean Corpuscular Hgb Conc. 32.1 g/dL (32.0-36.0); Monocytes % (auto) 9.1 % (0.0-12.0); Neutrophils # (auto) 5.7 10 ^3/uL (1.6-8.6); Red Blood Cells 5.41 10^6/uL (4.5-5.90); Red Cell Distribution Width 17.2 % (11.8-14.3); White Blood Cell 7.3 10^3/uL (4.4-10.8)
[2021-01-14 04:55] LABS: BUN/Creatinine Ratio 21.7; Calcium 8.4 mg/dL (8.5-10.1); Potassium 3.7 mmol/L (3.5-5.1)
[2021-01-14] MEDS: FUROSEMIDE 40 MG/4 ML VIAL IV SCH ×2 (05:59→15:56)
[2021-01-14] MEDS: LACTULOSE 20Gm/30ML SOLN PO SCH ×2 (10:25→21:40)
[2021-01-14] MEDS: DOCUSATE ORAL LIQUID 100 MG/10 ML UD GT SCH ×2 (10:25→21:40)
[2021-01-14] MEDS: PANTOPRAZOLE 40 MG/10 ML VIAL INJ IV SCH (10:25)
[2021-01-14] MEDS: POLYETHYLENE GLYCOL 17 GM PWDR PO SCH (10:26)
[2021-01-14] MEDS: ENOXAPARIN SOD 40 MG/0.4 ML SYRINGE SC SCH (10:26)
[2021-01-14] MEDS: FUROSEMIDE INJECTION 100 MG in D5W 5% 100 ML IV SCH (11:40)
[2021-01-14] MEDS: POTASSIUM CHL 20MEQ/100ML 100 ML IV SCH ×2 (11:40→16:11)
[2021-01-14] MEDS: NOREPINEPHRINE 8 MG/250ML KIT 250 ML IV SCH (16:15)
[2021-01-14] MEDS: ALBUTEROL SULF 2.5 MG/0.5ML(0.5%) NEB SOLN NEB PRN (18:20)
[2021-01-14] MEDS: IPRATROPIUM BROM 0.5 MG/2.5ML INH SOL NEB PRN (18:20)
[2021-01-14] MEDS ORDERED: Vital AF 1.2 Cal 1 liter bottle GT SCH (19:00)
[2021-01-14] MEDS: fentaNYL Drip 2500mCg/250mlNS 250 ML IV SCH (20:47)
[2021-01-14] MEDS: INSULIN LANTUS (GLARGINE) 1 /0.01ml (100units/ml) SC SCH (21:36)
[2021-01-15] VITALS (99 sets, daily range): BP systolic 103–157; BP diastolic 54–91
[2021-01-15] MEDS: PROPOFOL 100 ML IV SCH ×7 (00:38→21:30)
[2021-01-15] MEDS: MIDAZOLAM DRIP 50 mg/50mL 50 ML IV SCH ×3 (01:20→17:27)
[2021-01-15] MEDS: VANCOMYCIN 1GM/250ML 250 ML IV SCH ×2 (02:00→14:56)
[2021-01-15] MEDS: FUROSEMIDE INJECTION 100 MG in D5W 5% 100 ML IV SCH ×2 (04:00→12:36)
[2021-01-15 04:52] LABS: Basophils # (auto) 0.1 10 ^3/uL (0-0.2); Eosinophils # (auto) 0.2 10 ^3/uL (0-0.8); Hemoglobin 13.6 g/dL (13.5-17.5); Monocytes # (auto) 0.8 10 ^3/uL (0-1.3)
[2021-01-15 05:11] LABS: BUN/Creatinine Ratio 23.7; Calcium 8.4 mg/dL (8.5-10.1); Potassium 3.6 mmol/L (3.5-5.1)
[2021-01-15 05:15] LABS: Basophils % (auto) 1.2 % (0.0-2.0); Eosinophils % (auto) 3.4 % (0.0-7.0); Hematocrit 42.6 % (41.0-53.0); Lymphocytes # (auto) 0.7 10 ^3/uL (0.4-5.4); Lymphocytes % (auto) 10.1 % (10.0-50.0); Mean Corpuscular Hgb Conc. 31.8 g/dL (32.0-36.0); Mean Corpuscular Volume 81.8 fL (80.0-100.0); Monocytes % (auto) 12.1 % (0.0-12.0); Neutrophils % (auto) 73.2 % (37.0-80.0); Nucleated Red Blood Cells % 0.2 %; Red Blood Cells 5.21 10^6/uL (4.5-5.90); Red Cell Distribution Width 17.4 % (11.8-14.3); White Blood Cell 6.8 10^3/uL (4.4-10.8)
[2021-01-15] MEDS: AMPICILLIN & SULBACTAM SODIUM 3 GM in SODIUM CHL 0.9% 100 ML IV SCH ×4 (06:03→23:59)
[2021-01-15] MEDS: ACCU-CHEK COMFORT CURVE STRIP VI SCH ×4 (06:24→21:31)
[2021-01-15] MEDS: InsuLIN REG 1unit/0.01ml Soln (100units/ml) SC SCH ×4 (06:25→21:30)
[2021-01-15] MEDS: PANTOPRAZOLE 40 MG/10 ML VIAL INJ IV SCH (09:52)
[2021-01-15] MEDS: POLYETHYLENE GLYCOL 17 GM PWDR PO SCH (09:53)
[2021-01-15] MEDS: ENOXAPARIN SOD 80 MG/0.8ML SYRINGE SC SCH (09:53)
[2021-01-15] MEDS: DOCUSATE ORAL LIQUID 100 MG/10 ML UD GT SCH ×2 (09:53→21:30)
[2021-01-15] MEDS: LACTULOSE 20Gm/30ML SOLN PO SCH ×2 (09:53→21:30)
[2021-01-15] MEDS: fentaNYL Drip 2500mCg/250mlNS 250 ML IV SCH ×2 (12:38→21:04)
[2021-01-15] MEDS: NOREPINEPHRINE 8 MG/250ML KIT 250 ML IV SCH (16:15)
[2021-01-15] MEDS: ALBUTEROL SULF 2.5 MG/0.5ML(0.5%) NEB SOLN NEB PRN (18:17)
[2021-01-15] MEDS: IPRATROPIUM BROM 0.5 MG/2.5ML INH SOL NEB PRN (18:17)
[2021-01-15] MEDS: INSULIN LANTUS (GLARGINE) 1 /0.01ml (100units/ml) SC SCH (21:31)
[2021-01-16] VITALS (96 sets, daily range): BP systolic 112–150; BP diastolic 60–81
[2021-01-16] MEDS: MIDAZOLAM DRIP 50 mg/50mL 50 ML IV SCH ×3 (00:01→20:16)
[2021-01-16] MEDS: IPRATROPIUM BROM 0.5 MG/2.5ML INH SOL NEB PRN ×2 (00:04→18:01)
[2021-01-16] MEDS: ALBUTEROL SULF 2.5 MG/0.5ML(0.5%) NEB SOLN NEB PRN ×2 (00:04→18:01)
[2021-01-16] MEDS: PROPOFOL 100 ML IV SCH ×10 (00:54→21:58)
[2021-01-16] MEDS: FUROSEMIDE INJECTION 100 MG in D5W 5% 100 ML IV SCH ×4 (02:29→21:56)
[2021-01-16] MEDS: VANCOMYCIN 1GM/250ML 250 ML IV SCH ×2 (02:29→14:00)
[2021-01-16 04:21] LABS: Hemoglobin 13.4 g/dL (13.5-17.5); White Blood Cell 7.5 10^3/uL (4.4-10.8)
[2021-01-16 04:26] LABS: Hematocrit 40.2 % (41.0-53.0); Mean Corpuscular Hemoglobin 27.4 pg (28.0-32.0); Mean Corpuscular Hgb Conc. 33.4 g/dL (32.0-36.0); Mean Corpuscular Volume 81.9 fL (80.0-100.0); Red Blood Cells 4.91 10^6/uL (4.5-5.90); Red Cell Distribution Width 17.7 % (11.8-14.3)
[2021-01-16 04:42] LABS: Basophils % (manual) 0 (0.0-2.0); Blast Cells 0; Metamyelocytes % 0; Promyelocytes % 0; Reactive Lymphocytes 0
[2021-01-16 04:43] LABS: BUN/Creatinine Ratio 21.3; Calcium 8.3 mg/dL (8.5-10.1); Potassium 3.2 mmol/L (3.5-5.1)
[2021-01-16] MEDS: AMPICILLIN & SULBACTAM SODIUM 3 GM in SODIUM CHL 0.9% 100 ML IV SCH ×3 (05:52→18:18)
[2021-01-16] MEDS: POTASSIUM CHL 20MEQ/100ML 100 ML IV SCH ×3 (06:42→10:40)
[2021-01-16 06:56] LABS: Band Neutrophils % (manual) 18; Eosinophils % (manual) 4 (0-7); Lymphocytes % (manual) 8 (10.0-50.0); Monocytes % (manual) 7 (0-12); Myelocytes % 1
[2021-01-16] MEDS: InsuLIN REG 1unit/0.01ml Soln (100units/ml) SC SCH ×4 (06:56→21:49)
[2021-01-16] MEDS: ACCU-CHEK COMFORT CURVE STRIP VI SCH ×4 (07:08→21:36)
[2021-01-16] MEDS: PANTOPRAZOLE 40 MG/10 ML VIAL INJ IV SCH (10:00)
[2021-01-16] MEDS: LACTULOSE 20Gm/30ML SOLN PO SCH ×2 (10:00→21:36)
[2021-01-16] MEDS: ENOXAPARIN SOD 80 MG/0.8ML SYRINGE SC SCH (10:00)
[2021-01-16] MEDS: POLYETHYLENE GLYCOL 17 GM PWDR PO SCH (10:00)
[2021-01-16] MEDS: DOCUSATE ORAL LIQUID 100 MG/10 ML UD GT SCH ×2 (10:00→21:36)
[2021-01-16] MEDS: NOREPINEPHRINE 8 MG/250ML KIT 250 ML IV SCH (16:15)
[2021-01-16] MEDS: LINEZOLID 600MG/300ML 300 ML IV SCH (21:36)
[2021-01-16] MEDS: INSULIN LANTUS (GLARGINE) 1 /0.01ml (100units/ml) SC SCH (21:49)
[2021-01-16] MEDS: fentaNYL Drip 2500mCg/250mlNS 250 ML IV SCH (21:57)
[2021-01-16] MEDS ORDERED: ENOXAPARIN SOD 40 MG/0.4 ML SYRINGE SC SCH (22:00)
[2021-01-17] VITALS (80 sets, daily range): BP systolic 125–152; BP diastolic 65–84
[2021-01-17] MEDS: PROPOFOL 100 ML IV SCH ×3 (00:10→06:30)
[2021-01-17] MEDS: ALBUTEROL SULF 2.5 MG/0.5ML(0.5%) NEB SOLN NEB PRN ×3 (00:16→14:33)
[2021-01-17] MEDS: IPRATROPIUM BROM 0.5 MG/2.5ML INH SOL NEB PRN ×3 (00:17→14:33)
[2021-01-17] MEDS: MIDAZOLAM DRIP 50 mg/50mL 50 ML IV SCH ×3 (00:50→07:03)
[2021-01-17] MEDS: AMPICILLIN & SULBACTAM SODIUM 3 GM in SODIUM CHL 0.9% 100 ML IV SCH ×3 (00:50→12:00)
[2021-01-17] MEDS: FUROSEMIDE INJECTION 100 MG in D5W 5% 100 ML IV SCH ×5 (03:21→21:16)
[2021-01-17 04:23] LABS: Hematocrit 41.6 % (41.0-53.0); Hemoglobin 13.6 g/dL (13.5-17.5); Mean Corpuscular Hemoglobin 26.5 pg (28.0-32.0); Mean Corpuscular Hgb Conc. 32.6 g/dL (32.0-36.0); Mean Corpuscular Volume 81.1 fL (80.0-100.0); Red Blood Cells 5.13 10^6/uL (4.5-5.90); Red Cell Distribution Width 17.7 % (11.8-14.3)
[2021-01-17 04:31] LABS: Basophils % (manual) 0 (0.0-2.0); Blast Cells 0; Metamyelocytes % 0; Monocytes % (manual) 0 (0-12); Promyelocytes % 0; Reactive Lymphocytes 0
[2021-01-17 04:35] LABS: Calcium 8.4 mg/dL (8.5-10.1)
[2021-01-17 04:38] LABS: BUN/Creatinine Ratio 16.5
[2021-01-17 05:17] LABS: Potassium 2.5 mmol/L (3.5-5.1)
[2021-01-17] MEDS: POTASSIUM CHL 20MEQ/100ML 100 ML IV SCH ×8 (06:24→17:35)
[2021-01-17 06:37] LABS: Band Neutrophils % (manual) 9; Eosinophils % (manual) 8 (0-7); Lymphocytes % (manual) 5 (10.0-50.0); Myelocytes % 4
[2021-01-17] MEDS: InsuLIN REG 1unit/0.01ml Soln (100units/ml) SC SCH ×4 (07:00→21:19)
[2021-01-17] MEDS: ACCU-CHEK COMFORT CURVE STRIP VI SCH ×4 (07:02→21:18)
[2021-01-17 07:55] LABS: INR 1.07 (0.9-1.15); Partial Thromboplastin Time 26.9 sec (23.6-33.0)
[2021-01-17] MEDS: DOCUSATE ORAL LIQUID 100 MG/10 ML UD GT SCH ×2 (09:56→21:16)
[2021-01-17] MEDS: LINEZOLID 600MG/300ML 300 ML IV SCH ×2 (09:56→21:17)
[2021-01-17] MEDS: LACTULOSE 20Gm/30ML SOLN PO SCH ×2 (09:56→21:17)
[2021-01-17] MEDS: PANTOPRAZOLE 40 MG/10 ML VIAL INJ IV SCH (09:56)
[2021-01-17] MEDS: POLYETHYLENE GLYCOL 17 GM PWDR PO SCH (09:57)
[2021-01-17] MEDS: ENOXAPARIN SOD 80 MG/0.8ML SYRINGE SC SCH (09:57)
[2021-01-17] MEDS ORDERED: LIDOCAINE HCL 2% TOP JELLY 5ML TOP ONE (12:43)
[2021-01-17] MEDS: NOREPINEPHRINE 8 MG/250ML KIT 250 ML IV SCH (16:15)
[2021-01-17] MEDS: MEROPENEM 1GM IVPB 100 ML IV SCH (21:16)
[2021-01-17] MEDS: INSULIN LANTUS (GLARGINE) 1 /0.01ml (100units/ml) SC SCH (21:18)
[2021-01-18] VITALS (83 sets, daily range): BP systolic 122–168; BP diastolic 53–96
[2021-01-18] MEDS: FUROSEMIDE INJECTION 100 MG in D5W 5% 100 ML IV SCH ×5 (02:37→22:30)
[2021-01-18] MEDS: MEROPENEM 1GM IVPB 100 ML IV SCH ×4 (03:50→21:07)
[2021-01-18 04:25] LABS: Hemoglobin 13.8 g/dL (13.5-17.5)
[2021-01-18 04:27] LABS: Hematocrit 42.5 % (41.0-53.0); Mean Corpuscular Hemoglobin 26.5 pg (28.0-32.0); Mean Corpuscular Hgb Conc. 32.5 g/dL (32.0-36.0); Mean Corpuscular Volume 81.4 fL (80.0-100.0); Red Blood Cells 5.22 10^6/uL (4.5-5.90); Red Cell Distribution Width 17.9 % (11.8-14.3); White Blood Cell 9.2 10^3/uL (4.4-10.8)
[2021-01-18 04:37] LABS: Band Neutrophils % (manual) 0; Basophils % (manual) 0 (0.0-2.0); Blast Cells 0; Metamyelocytes % 0; Myelocytes % 0; Promyelocytes % 0; Reactive Lymphocytes 0
[2021-01-18 04:41] LABS: Calcium 8.5 mg/dL (8.5-10.1)
[2021-01-18 04:44] LABS: Potassium 2.6 mmol/L (3.5-5.1)
[2021-01-18 04:46] LABS: Bilirubin, Total 0.6 mg/dL (0.2-1.0); Total Protein 7.7 g/dL (6.4-8.2)
[2021-01-18] MEDS ORDERED: POTASSIUM EFFERVESENT TAB 25 MEQ ONE (05:12)
[2021-01-18] MEDS ORDERED: POTASSIUM CHL 20MEQ/100ML 200 ML IV ONE (05:12)
[2021-01-18] MEDS ORDERED: POTASSIUM EFFERVESENT TAB 25 MEQ GT ONE (05:15)
[2021-01-18] MEDS: InsuLIN REG 1unit/0.01ml Soln (100units/ml) SC SCH ×4 (05:59→21:39)
[2021-01-18] MEDS: ACCU-CHEK COMFORT CURVE STRIP VI SCH ×4 (05:59→21:37)
[2021-01-18] MEDS: POTASSIUM CHL 20MEQ/100ML 100 ML IV SCH ×6 (05:59→17:51)
[2021-01-18 09:31] LABS: Eosinophils % (manual) 4 (0-7); Lymphocytes % (manual) 10 (10.0-50.0); Monocytes % (manual) 10 (0-12)
[2021-01-18] MEDS: PANTOPRAZOLE 40 MG/10 ML VIAL INJ IV SCH (10:42)
[2021-01-18] MEDS: LINEZOLID 600MG/300ML 300 ML IV SCH ×2 (10:42→21:35)
[2021-01-18] MEDS: LACTULOSE 20Gm/30ML SOLN PO SCH ×2 (10:42→21:35)
[2021-01-18] MEDS: ENOXAPARIN SOD 80 MG/0.8ML SYRINGE SC SCH (10:42)
[2021-01-18] MEDS: DOCUSATE ORAL LIQUID 100 MG/10 ML UD GT SCH ×2 (10:42→21:35)
[2021-01-18] MEDS: POLYETHYLENE GLYCOL 17 GM PWDR PO SCH (10:42)
[2021-01-18] MEDS: MIDAZOLAM DRIP 50 mg/50mL 50 ML IV SCH (10:45)
[2021-01-18] MEDS: PROPOFOL 100 ML IV SCH ×2 (10:45→13:54)
[2021-01-18] MEDS: fentaNYL Drip 2500mCg/250mlNS 250 ML IV SCH (10:46)
[2021-01-18 12:25] LABS: Magnesium 1.7 mg/dL (1.6-2.6)
[2021-01-18 12:51] LABS: Potassium 2.8 mmol/L (3.5-5.1)
[2021-01-18] MEDS: NOREPINEPHRINE 8 MG/250ML KIT 250 ML IV SCH (16:15)
[2021-01-18] MEDS: IPRATROPIUM BROM 0.5 MG/2.5ML INH SOL NEB PRN (18:04)
[2021-01-18] MEDS: ALBUTEROL SULF 2.5 MG/0.5ML(0.5%) NEB SOLN NEB PRN (18:04)
[2021-01-18] MEDS: INSULIN LANTUS (GLARGINE) 1 /0.01ml (100units/ml) SC SCH (21:37)
[2021-01-18] MEDS ORDERED: ALBUTEROL SULF 2.5 MG/0.5ML(0.5%) NEB SOLN NEB ONE (22:00)
[2021-01-19] VITALS (86 sets, daily range): BP systolic 94–148; BP diastolic 43–80
[2021-01-19] MEDS: FUROSEMIDE INJECTION 100 MG in D5W 5% 100 ML IV SCH ×4 (03:33→18:50)
[2021-01-19 04:48] LABS: Basophils # (auto) 0.1 10 ^3/uL (0-0.2); Eosinophils # (auto) 0.3 10 ^3/uL (0-0.8); Lymphocytes # (auto) 0.8 10 ^3/uL (0.4-5.4); Monocytes # (auto) 1.1 10 ^3/uL (0-1.3)
[2021-01-19 04:54] LABS: Eosinophils % (auto) 2.4 % (0.0-7.0); Hematocrit 41.3 % (41.0-53.0); Hemoglobin 13.4 g/dL (13.5-17.5); Mean Corpuscular Hemoglobin 26.6 pg (28.0-32.0); Mean Corpuscular Hgb Conc. 32.6 g/dL (32.0-36.0); Mean Corpuscular Volume 81.6 fL (80.0-100.0); Monocytes % (auto) 10.1 % (0.0-12.0); Neutrophils # (auto) 8.2 10 ^3/uL (1.6-8.6); Neutrophils % (auto) 78.5 % (37.0-80.0); Red Blood Cells 5.06 10^6/uL (4.5-5.90); White Blood Cell 10.4 10^3/uL (4.4-10.8)
[2021-01-19 05:33] LABS: Albumin 1.9 g/dL (3.4-5.0); Chloride 88 mmol/L (98-107); Sodium 140 mmol/L (136-145)
[2021-01-19 05:36] LABS: BUN/Creatinine Ratio 13.3; Blood Urea Nitrogen 12 mg/dL (7-18); Calcium 8.7 mg/dL (8.5-10.1); GFR African American 118 mL/min; GFR Non-African American 97 mL/min; Glucose 120 mg/dL (74-106)
[2021-01-19 05:53] LABS: Alanine Aminotransferase 48 U/L (16-61); Alkaline Phosphatase 65 U/L (45-117); Aspartate Aminotransferase 42 U/L (15-37); Bilirubin, Total 0.7 mg/dL (0.2-1.0); Total Protein 7.6 g/dL (6.4-8.2)
[2021-01-19 06:01] LABS: Potassium 2.7 mmol/L (3.5-5.1)
[2021-01-19 06:02] LABS: Anion Gap 6.999 (5-15); Carbon Dioxide > 45 mmol/L (21-32)
[2021-01-19] MEDS: ACCU-CHEK COMFORT CURVE STRIP VI SCH ×4 (06:07→21:53)
[2021-01-19] MEDS: InsuLIN REG 1unit/0.01ml Soln (100units/ml) SC SCH ×4 (06:07→21:50)
[2021-01-19] MEDS ORDERED: POTASSIUM EFFERVESENT TAB 25 MEQ GT ONE (06:15)
[2021-01-19] MEDS: ACETAMINOPHEN 650 mg PER 20.3 mL UD GT PRN ×2 (06:46→13:18)
[2021-01-19] MEDS: POTASSIUM CHL 20MEQ/100ML 100 ML IV SCH ×2 (06:47→09:03)
[2021-01-19] MEDS: MIDAZOLAM DRIP 50 mg/50mL 50 ML IV SCH ×2 (09:08→12:29)
[2021-01-19] MEDS: ALBUTEROL SULF 2.5 MG/0.5ML(0.5%) NEB SOLN NEB PRN ×4 (09:39→23:58)
[2021-01-19] MEDS: IPRATROPIUM BROM 0.5 MG/2.5ML INH SOL NEB PRN ×4 (09:39→23:58)
[2021-01-19] MEDS: LACTULOSE 20Gm/30ML SOLN PO SCH ×2 (10:00→21:50)
[2021-01-19] MEDS: PROPOFOL 100 ML IV SCH ×3 (10:12→15:08)
[2021-01-19] MEDS: PANTOPRAZOLE 40 MG/10 ML VIAL INJ IV SCH (10:49)
[2021-01-19] MEDS: LINEZOLID 600MG/300ML 300 ML IV SCH ×2 (10:49→21:49)
[2021-01-19] MEDS: POLYETHYLENE GLYCOL 17 GM PWDR PO SCH (10:49)
[2021-01-19] MEDS: DOCUSATE ORAL LIQUID 100 MG/10 ML UD GT SCH ×2 (10:49→21:49)
[2021-01-19] MEDS: ENOXAPARIN SOD 80 MG/0.8ML SYRINGE SC SCH (10:49)
[2021-01-19] MEDS: MEROPENEM 1GM IVPB 100 ML IV SCH ×2 (12:28→21:49)
[2021-01-19] MEDS: NOREPINEPHRINE 8 MG/250ML KIT 250 ML IV SCH (17:40)
[2021-01-19] MEDS: fentaNYL Drip 2500mCg/250mlNS 250 ML IV SCH (17:40)
[2021-01-19 20:13] LABS: Potassium 3.1 mmol/L (3.5-5.1)
[2021-01-19] MEDS ORDERED: ACETAMINOPHEN IV 1000 MG/100ML (10MG/ML) IV PRN (21:30)
[2021-01-19] MEDS ORDERED: FAMOTIDINE (10MG/ML) 2ML VL IV ONE (21:33)
[2021-01-19] MEDS: INSULIN LANTUS (GLARGINE) 1 /0.01ml (100units/ml) SC SCH (21:51)
[2021-01-20] VITALS (90 sets, daily range): BP systolic 97–137; BP diastolic 40–79
[2021-01-20] MEDS: FUROSEMIDE INJECTION 100 MG in D5W 5% 100 ML IV SCH ×5 (02:24→22:41)
[2021-01-20] MEDS ORDERED: DexAMETHasone SOD PHOS 10MG/1ML VIAL INJ IV ONE (03:00)
[2021-01-20] MEDS: MEROPENEM 1GM IVPB 100 ML IV SCH ×3 (03:48→20:22)
[2021-01-20 04:37] LABS: Basophils # (auto) 0.1 10 ^3/uL (0-0.2); Basophils % (auto) 0.9 % (0.0-2.0); Eosinophils # (auto) 0.1 10 ^3/uL (0-0.8); Mean Corpuscular Hgb Conc. 32.2 g/dL (32.0-36.0); Neutrophils % (auto) 82.8 % (37.0-80.0); White Blood Cell 13.3 10^3/uL (4.4-10.8)
[2021-01-20 04:39] LABS: Eosinophils % (auto) 0.9 % (0.0-7.0); Hematocrit 40.3 % (41.0-53.0); Lymphocytes % (auto) 7.7 % (10.0-50.0); Mean Corpuscular Hemoglobin 26.1 pg (28.0-32.0); Mean Corpuscular Volume 80.9 fL (80.0-100.0); Monocytes % (auto) 7.7 % (0.0-12.0); Nucleated Red Blood Cells % 0.2 %; Red Blood Cells 4.98 10^6/uL (4.5-5.90); Red Cell Distribution Width 18.2 % (11.8-14.3)
[2021-01-20 05:09] LABS: Albumin 1.7 g/dL (3.4-5.0); BUN/Creatinine Ratio 15.3; Bilirubin, Total 0.8 mg/dL (0.2-1.0); Total Protein 7.4 g/dL (6.4-8.2)
[2021-01-20 05:19] LABS: Potassium 2.8 mmol/L (3.5-5.1)
[2021-01-20] MEDS: InsuLIN REG 1unit/0.01ml Soln (100units/ml) SC SCH ×4 (05:34→21:32)
[2021-01-20] MEDS: ACCU-CHEK COMFORT CURVE STRIP VI SCH ×4 (05:37→21:34)
[2021-01-20] MEDS ORDERED: POTASSIUM EFFERVESENT TAB 25 MEQ PO ONE (06:00)
[2021-01-20] MEDS ORDERED: POTASSIUM CHL 20MEQ/100ML 200 ML IV ONE (06:02)
[2021-01-20] MEDS: POTASSIUM CHL 20MEQ/100ML 100 ML IV SCH ×4 (06:19→16:00)
[2021-01-20] MEDS: POLYETHYLENE GLYCOL 17 GM PWDR PO SCH (09:54)
[2021-01-20] MEDS: PANTOPRAZOLE 40 MG/10 ML VIAL INJ IV SCH (09:54)
[2021-01-20] MEDS: ENOXAPARIN SOD 80 MG/0.8ML SYRINGE SC SCH (09:54)
[2021-01-20] MEDS: DOCUSATE ORAL LIQUID 100 MG/10 ML UD GT SCH ×2 (09:54→21:29)
[2021-01-20] MEDS: LINEZOLID 600MG/300ML 300 ML IV SCH ×2 (09:54→21:29)
[2021-01-20] MEDS: LACTULOSE 20Gm/30ML SOLN PO SCH ×2 (10:00→21:29)
[2021-01-20] MEDS: ACETAMINOPHEN 650 mg PER 20.3 mL UD GT PRN ×2 (10:02→23:13)
[2021-01-20] MEDS: PROPOFOL 100 ML IV SCH ×3 (11:07→16:10)
[2021-01-20] MEDS ORDERED: MICAFUNGIN SODIUM 100 MG in SODIUM CHL 0.9% 100 ML IV ONE (12:45)
[2021-01-20] MEDS: fentaNYL Drip 2500mCg/250mlNS 250 ML IV SCH (13:08)
[2021-01-20] MEDS: MIDAZOLAM DRIP 50 mg/50mL 50 ML IV SCH ×3 (14:15→19:00)
[2021-01-20] MEDS: NOREPINEPHRINE 8 MG/250ML KIT 250 ML IV SCH (16:15)
[2021-01-20] MEDS: POTASSIUM EFFERVESENT TAB 25 MEQ GT SCH (21:29)
[2021-01-20] MEDS: INSULIN LANTUS (GLARGINE) 1 /0.01ml (100units/ml) SC SCH (21:34)
[2021-01-21] VITALS (96 sets, daily range): BP systolic 95–131; BP diastolic 42–78
[2021-01-21] MEDS: MEROPENEM 1GM IVPB 100 ML IV SCH ×3 (03:14→22:10)
[2021-01-21 04:36] LABS: Basophils # (auto) 0.1 10 ^3/uL (0-0.2); Basophils % (auto) 0.3 % (0.0-2.0); Monocytes # (auto) 1.3 10 ^3/uL (0-1.3); Monocytes % (auto) 7.5 % (0.0-12.0)
[2021-01-21 04:49] LABS: Albumin 1.8 g/dL (3.4-5.0)
[2021-01-21 04:52] LABS: Eosinophils # (auto) 0.1 10 ^3/uL (0-0.8); Eosinophils % (auto) 0.3 % (0.0-7.0); Hematocrit 37.5 % (41.0-53.0); Hemoglobin 12.3 g/dL (13.5-17.5); Lymphocytes % (auto) 5.9 % (10.0-50.0); Mean Corpuscular Hemoglobin 26.3 pg (28.0-32.0); Mean Corpuscular Hgb Conc. 32.8 g/dL (32.0-36.0); Mean Corpuscular Volume 80.2 fL (80.0-100.0); Neutrophils # (auto) 15.1 10 ^3/uL (1.6-8.6); Nucleated Red Blood Cells % 0.2 %; Red Blood Cells 4.68 10^6/uL (4.5-5.90); Red Cell Distribution Width 18.7 % (11.8-14.3); White Blood Cell 17.6 10^3/uL (4.4-10.8)
[2021-01-21 04:55] LABS: BUN/Creatinine Ratio 28.6; Bilirubin, Total 0.8 mg/dL (0.2-1.0); Total Protein 7.4 g/dL (6.4-8.2)
[2021-01-21] MEDS: ACCU-CHEK COMFORT CURVE STRIP VI SCH ×4 (06:04→22:12)
[2021-01-21] MEDS: InsuLIN REG 1unit/0.01ml Soln (100units/ml) SC SCH ×4 (06:04→22:12)
[2021-01-21] MEDS: PROPOFOL 100 ML IV SCH (09:52)
[2021-01-21] MEDS: LACTULOSE 20Gm/30ML SOLN PO SCH ×2 (10:00→22:00)
[2021-01-21] MEDS: POTASSIUM EFFERVESENT TAB 25 MEQ GT SCH ×2 (10:45→22:13)
[2021-01-21] MEDS: POLYETHYLENE GLYCOL 17 GM PWDR PO SCH (10:45)
[2021-01-21] MEDS: ENOXAPARIN SOD 80 MG/0.8ML SYRINGE SC SCH (10:45)
[2021-01-21] MEDS: MICAFUNGIN SODIUM 100 MG in SODIUM CHL 0.9% 100 ML IV SCH (10:45)
[2021-01-21] MEDS: DOCUSATE ORAL LIQUID 100 MG/10 ML UD GT SCH ×2 (10:45→22:10)
[2021-01-21] MEDS: LINEZOLID 600MG/300ML 300 ML IV SCH ×2 (11:48→22:11)
[2021-01-21] MEDS ORDERED: POTASSIUM EFFERVESENT TAB 25 MEQ GT ONE (12:00)
[2021-01-21] MEDS: FUROSEMIDE INJECTION 100 MG in D5W 5% 100 ML IV SCH ×2 (13:17→22:10)
[2021-01-21] MEDS: fentaNYL Drip 2500mCg/250mlNS 250 ML IV SCH ×2 (13:17→16:00)
[2021-01-21] MEDS: MIDAZOLAM DRIP 50 mg/50mL 50 ML IV SCH (13:17)
[2021-01-21] MEDS: POTASSIUM CHL 20MEQ/100ML 100 ML IV SCH ×4 (13:30→23:34)
[2021-01-21] MEDS: NOREPINEPHRINE 8 MG/250ML KIT 250 ML IV SCH (16:15)
[2021-01-21] MEDS: MAGNESIUM SULFATE 1GM/100ML 100 ML IV SCH ×3 (18:00→23:00)
[2021-01-21] MEDS: PANTOPRAZOLE 40 MG/10 ML VIAL INJ IV SCH (18:15)
[2021-01-21] MEDS: INSULIN LANTUS (GLARGINE) 1 /0.01ml (100units/ml) SC SCH (22:15)
[2021-01-21 23:05] LABS: Potassium 3.2 mmol/L (3.5-5.1)
[2021-01-21 23:06] LABS: Magnesium 2.3 mg/dL (1.6-2.6)
[2021-01-22] VITALS (98 sets, daily range): BP systolic 80–119; BP diastolic 40–63
[2021-01-22] MEDS: ACETAMINOPHEN 650 mg PER 20.3 mL UD GT PRN ×2 (02:37→14:03)
[2021-01-22] MEDS: MEROPENEM 1GM IVPB 100 ML IV SCH ×3 (03:21→21:13)
[2021-01-22] MEDS: FUROSEMIDE INJECTION 100 MG in D5W 5% 100 ML IV SCH ×3 (03:54→18:28)
[2021-01-22 04:27] LABS: Hemoglobin 12.4 g/dL (13.5-17.5); Mean Corpuscular Volume 81.7 fL (80.0-100.0)
[2021-01-22 04:33] LABS: Basophils # (auto) 0.1 10 ^3/uL (0-0.2); Basophils % (auto) 0.5 % (0.0-2.0); Eosinophils # (auto) 0.3 10 ^3/uL (0-0.8); Eosinophils % (auto) 1.8 % (0.0-7.0); Hematocrit 38.4 % (41.0-53.0); Lymphocytes # (auto) 1.3 10 ^3/uL (0.4-5.4); Lymphocytes % (auto) 8.3 % (10.0-50.0); Mean Corpuscular Hemoglobin 26.4 pg (28.0-32.0); Mean Corpuscular Hgb Conc. 32.3 g/dL (32.0-36.0); Monocytes # (auto) 1.3 10 ^3/uL (0-1.3); Monocytes % (auto) 8.5 % (0.0-12.0); Neutrophils # (auto) 12.7 10 ^3/uL (1.6-8.6); Neutrophils % (auto) 80.9 % (37.0-80.0); Nucleated Red Blood Cells % 0.3 %; Red Cell Distribution Width 18.6 % (11.8-14.3); White Blood Cell 15.7 10^3/uL (4.4-10.8)
[2021-01-22 04:42] LABS: Albumin 1.7 g/dL (3.4-5.0); Calcium 9.1 mg/dL (8.5-10.1); Potassium 3.5 mmol/L (3.5-5.1)
[2021-01-22 04:45] LABS: BUN/Creatinine Ratio 29.9; Bilirubin, Total 0.9 mg/dL (0.2-1.0); Total Protein 7.3 g/dL (6.4-8.2)
[2021-01-22] MEDS: InsuLIN REG 1unit/0.01ml Soln (100units/ml) SC SCH ×4 (05:35→21:40)
[2021-01-22] MEDS: ACCU-CHEK COMFORT CURVE STRIP VI SCH ×4 (05:36→21:54)
[2021-01-22] MEDS: MICAFUNGIN SODIUM 100 MG in SODIUM CHL 0.9% 100 ML IV SCH ×2 (08:27→18:10)
[2021-01-22] MEDS: MIDAZOLAM DRIP 50 mg/50mL 50 ML IV SCH (08:38)
[2021-01-22] MEDS: LINEZOLID 600MG/300ML 300 ML IV SCH ×2 (10:05→21:25)
[2021-01-22] MEDS: DOCUSATE ORAL LIQUID 100 MG/10 ML UD GT SCH ×2 (10:05→21:14)
[2021-01-22] MEDS: POTASSIUM EFFERVESENT TAB 25 MEQ GT SCH ×3 (10:05→21:25)
[2021-01-22] MEDS: POLYETHYLENE GLYCOL 17 GM PWDR PO SCH (10:06)
[2021-01-22] MEDS: PANTOPRAZOLE 40 MG/10 ML VIAL INJ IV SCH (10:06)
[2021-01-22] MEDS: LACTULOSE 20Gm/30ML SOLN PO SCH ×2 (10:06→21:14)
[2021-01-22] MEDS: ENOXAPARIN SOD 80 MG/0.8ML SYRINGE SC SCH (10:06)
[2021-01-22] MEDS: PROPOFOL 100 ML IV SCH ×2 (10:07→14:03)
[2021-01-22] MEDS ORDERED: POTASSIUM CHL 20MEQ/100ML 100 ML IV ONE (11:15)
[2021-01-22] MEDS: fentaNYL Drip 2500mCg/250mlNS 250 ML IV SCH (16:00)
[2021-01-22] MEDS: NOREPINEPHRINE 8 MG/250ML KIT 250 ML IV SCH (16:15)
[2021-01-22] MEDS ORDERED: ADENOSINE 6 MG/2 ML INJ IV ONE (16:45)
[2021-01-22] MEDS ORDERED: ACETAMINOPHEN IV 1000 MG/100ML (10MG/ML) IV ONE (18:45)
[2021-01-22] MEDS: INSULIN LANTUS (GLARGINE) 1 /0.01ml (100units/ml) SC SCH (21:44)
[2021-01-23] VITALS (94 sets, daily range): BP systolic 84–134; BP diastolic 43–77
[2021-01-23] MEDS: MEROPENEM 1GM IVPB 100 ML IV SCH ×3 (03:42→21:30)
[2021-01-23 04:20] LABS: Hematocrit 44.7 % (41.0-53.0); Hemoglobin 13.9 g/dL (13.5-17.5); Mean Corpuscular Hemoglobin 25.9 pg (28.0-32.0); Mean Corpuscular Volume 83.4 fL (80.0-100.0); Red Blood Cells 5.36 10^6/uL (4.5-5.90); Red Cell Distribution Width 18.3 % (11.8-14.3); White Blood Cell 19.8 10^3/uL (4.4-10.8)
[2021-01-23 04:31] LABS: Basophils % (manual) 0 (0.0-2.0); Blast Cells 0; Eosinophils % (manual) 0 (0-7); Metamyelocytes % 0; Promyelocytes % 0; Reactive Lymphocytes 0
[2021-01-23 04:38] LABS: Calcium 8.8 mg/dL (8.5-10.1)
[2021-01-23 04:48] LABS: BUN/Creatinine Ratio 18.6; Bilirubin, Total 3.9 mg/dL (0.2-1.0); Total Protein 7.6 g/dL (6.4-8.2)
[2021-01-23 05:10] LABS: Albumin 1.1 g/dL (3.4-5.0)
[2021-01-23] MEDS: ACCU-CHEK COMFORT CURVE STRIP VI SCH ×3 (05:27→18:15)
[2021-01-23] MEDS: InsuLIN REG 1unit/0.01ml Soln (100units/ml) SC SCH ×3 (05:27→18:15)
[2021-01-23 05:35] LABS: Potassium 6.2 mmol/L (3.5-5.1)
[2021-01-23] MEDS: POTASSIUM EFFERVESENT TAB 25 MEQ GT SCH (05:46)
[2021-01-23] MEDS: ALBUTEROL SULF 2.5 MG/0.5ML(0.5%) NEB SOLN NEB PRN (06:13)
[2021-01-23] MEDS: IPRATROPIUM BROM 0.5 MG/2.5ML INH SOL NEB PRN (06:14)
[2021-01-23] MEDS ORDERED: ALBUTEROL SULF 2.5 MG/0.5ML(0.5%) NEB SOLN NEB ONE ×2 (06:30→21:00)
[2021-01-23] MEDS ORDERED: InsuLIN REG 1unit/0.01ml Soln (100units/ml) IV ONE ×2 (06:30→21:00)
[2021-01-23] MEDS ORDERED: ALBUMIN 25% 100 ML IV ONE ×2 (06:30→06:37)
[2021-01-23] MEDS ORDERED: DEXTROSE (50%) 50ML SYRG IV ONE ×2 (06:30→21:00)
[2021-01-23] MEDS ORDERED: CALCIUM GLUC 1,000mg/50ml-NS 50 ML IV ONE ×3 (06:30→21:00)
[2021-01-23 06:44] LABS: Band Neutrophils % (manual) 20; Lymphocytes % (manual) 13 (10.0-50.0); Monocytes % (manual) 5 (0-12); Myelocytes % 3
[2021-01-23] MEDS: DOCUSATE ORAL LIQUID 100 MG/10 ML UD GT SCH ×2 (09:37→21:53)
[2021-01-23] MEDS: SODIUM ZIRCONIUM CYCL 10 GM PAK PO SCH ×3 (09:37→22:19)
[2021-01-23] MEDS: LACTULOSE 20Gm/30ML SOLN PO SCH ×2 (09:37→21:55)
[2021-01-23] MEDS: LINEZOLID 600MG/300ML 300 ML IV SCH ×2 (09:38→22:20)
[2021-01-23] MEDS: PANTOPRAZOLE 40 MG/10 ML VIAL INJ IV SCH (09:38)
[2021-01-23] MEDS: ENOXAPARIN SOD 80 MG/0.8ML SYRINGE SC SCH (09:38)
[2021-01-23] MEDS: MIDAZOLAM DRIP 50 mg/50mL 50 ML IV SCH ×4 (09:39→21:53)
[2021-01-23] MEDS: POLYETHYLENE GLYCOL 17 GM PWDR PO SCH (10:00)
[2021-01-23] MEDS: NOREPINEPHRINE 8 MG/250ML KIT 250 ML IV SCH ×2 (12:57→19:02)
[2021-01-23] MEDS: FUROSEMIDE INJECTION 100 MG in D5W 5% 100 ML IV SCH ×2 (17:11→21:52)
[2021-01-23] MEDS: PROPOFOL 100 ML IV SCH ×3 (17:12→21:30)
[2021-01-23] MEDS: MICAFUNGIN SODIUM 100 MG in SODIUM CHL 0.9% 100 ML IV SCH (19:47)
[2021-01-23 20:09] LABS: BUN/Creatinine Ratio 17.8; Calcium 7.6 mg/dL (8.5-10.1)
[2021-01-23 20:27] LABS: Potassium 6.7 mmol/L (3.5-5.1)
[2021-01-23] MEDS ORDERED: DEXTROSE (50%) 50ML SYRG IV PRN (21:00)
[2021-01-23] MEDS ORDERED: SODIUM BICARBONATE 8.4 % INJ 50ML VIAL IV ONE (21:00)
[2021-01-23] MEDS: fentaNYL Drip 2500mCg/250mlNS 250 ML IV SCH (21:51)
[2021-01-23] MEDS: INSULIN LANTUS (GLARGINE) 1 /0.01ml (100units/ml) SC SCH (22:00)
[2021-01-24] VITALS (111 sets, daily range): BP systolic 75–128; BP diastolic 37–80
[2021-01-24] MEDS: NOREPINEPHRINE 8 MG/250ML KIT 250 ML IV SCH ×4 (00:50→23:17)
[2021-01-24] MEDS: PROPOFOL 100 ML IV SCH ×6 (00:51→09:53)
[2021-01-24] MEDS: MIDAZOLAM DRIP 50 mg/50mL 50 ML IV SCH ×4 (02:13→20:45)
[2021-01-24] MEDS: MEROPENEM 1GM IVPB 100 ML IV SCH ×3 (04:18→20:45)
[2021-01-24 04:58] LABS: Hematocrit 43.6 % (41.0-53.0); Mean Corpuscular Hemoglobin 26.6 pg (28.0-32.0); Mean Corpuscular Hgb Conc. 32.1 g/dL (32.0-36.0); Mean Corpuscular Volume 82.7 fL (80.0-100.0); Red Blood Cells 5.27 10^6/uL (4.5-5.90); White Blood Cell 24.4 10^3/uL (4.4-10.8)
[2021-01-24 05:29] LABS: BUN/Creatinine Ratio 16.2; Bilirubin, Total 4.1 mg/dL (0.2-1.0); Calcium 7.2 mg/dL (8.5-10.1); Total Protein 7.7 g/dL (6.4-8.2)
[2021-01-24 05:47] LABS: Basophils % (manual) 0 (0.0-2.0); Blast Cells 0; Metamyelocytes % 0; Myelocytes % 0; Promyelocytes % 0; Reactive Lymphocytes 0
[2021-01-24] MEDS: ACCU-CHEK COMFORT CURVE STRIP VI SCH ×4 (05:48→17:35)
[2021-01-24] MEDS: SODIUM ZIRCONIUM CYCL 10 GM PAK PO SCH (05:52)
[2021-01-24] MEDS: InsuLIN REG 1unit/0.01ml Soln (100units/ml) SC SCH ×4 (05:53→17:35)
[2021-01-24] MEDS ORDERED: CALCIUM GLUC 1,000mg/50ml-NS 50 ML IV ONE (06:30)
[2021-01-24] MEDS ORDERED: DEXTROSE (50%) 50ML SYRG IV ONE (06:30)
[2021-01-24] MEDS ORDERED: ALBUTEROL SULF 2.5 MG/0.5ML(0.5%) NEB SOLN NEB ONE (06:30)
[2021-01-24] MEDS ORDERED: SODIUM BICARBONATE 8.4 % INJ 50ML VIAL IV ONE (06:30)
[2021-01-24] MEDS ORDERED: InsuLIN REG 1unit/0.01ml Soln (100units/ml) IV ONE (06:30)
[2021-01-24] MEDS ORDERED: SODIUM BICARBONATE 8.4% INJ 50ML SYRINGE ONE (06:31)
[2021-01-24 06:48] LABS: Albumin 1.2 g/dL (3.4-5.0)
[2021-01-24] MEDS: ACETAMINOPHEN 650 mg PER 20.3 mL UD GT PRN (08:30)
[2021-01-24 09:00] LABS: Band Neutrophils % (manual) 8; Eosinophils % (manual) 1 (0-7); Lymphocytes % (manual) 8 (10.0-50.0); Monocytes % (manual) 9 (0-12)
[2021-01-24] MEDS: FUROSEMIDE INJECTION 100 MG in D5W 5% 100 ML IV SCH (09:53)
[2021-01-24] MEDS: ENOXAPARIN SOD 80 MG/0.8ML SYRINGE SC SCH (09:58)
[2021-01-24] MEDS: LINEZOLID 600MG/300ML 300 ML IV SCH ×2 (09:58→13:27)
[2021-01-24] MEDS: PANTOPRAZOLE 40 MG/10 ML VIAL INJ IV SCH ×2 (09:58→12:21)
[2021-01-24] MEDS: LACTULOSE 20Gm/30ML SOLN PO SCH (10:00)
[2021-01-24] MEDS: DOCUSATE ORAL LIQUID 100 MG/10 ML UD GT SCH ×2 (10:00→21:52)
[2021-01-24] MEDS: POLYETHYLENE GLYCOL 17 GM PWDR PO SCH (10:00)
[2021-01-24] MEDS ORDERED: HEPARIN 1,000 UNITS/ml 1ML VIAL ONE (10:01)
[2021-01-24] MEDS ORDERED: HEPARIN 1,000 UNITS/ml 1ML VIAL IV ONE (10:15)
[2021-01-24] MEDS ORDERED: PHENYLEPHRINE IV 250 ML IV ONE (10:21)
[2021-01-24] MEDS ORDERED: ALBUMIN 25% 200 ML IV ONE (10:28)
[2021-01-24] MEDS ORDERED: ALBUMIN 25% 100 ML IV ONE (10:30)
[2021-01-24] MEDS: PHENYLEPHRINE IV 250 ML IV SCH ×3 (10:30→20:46)
[2021-01-24] MEDS ORDERED: SODIUM CHL 0.9% 1000 ML BAG XX ONE (10:45)
[2021-01-24 10:51] LABS: Hematocrit 41.8 % (41.0-53.0); Hemoglobin 13.8 g/dL (13.5-17.5); Mean Corpuscular Hemoglobin 27.3 pg (28.0-32.0); Mean Corpuscular Volume 82.5 fL (80.0-100.0); Red Blood Cells 5.06 10^6/uL (4.5-5.90); Red Cell Distribution Width 19.1 % (11.8-14.3); White Blood Cell 29.4 10^3/uL (4.4-10.8)
[2021-01-24 10:52] LABS: Magnesium 2.7 mg/dL (1.6-2.6)
[2021-01-24 11:01] LABS: BUN/Creatinine Ratio 15.4; Total Protein 7.6 g/dL (6.4-8.2)
[2021-01-24 11:06] LABS: Basophils % (manual) 0 (0.0-2.0); Blast Cells 0; Eosinophils % (manual) 0 (0-7); Metamyelocytes % 0; Promyelocytes % 0; Reactive Lymphocytes 0
[2021-01-24 11:14] LABS: Potassium 7.5 mmol/L (3.5-5.1)
[2021-01-24 11:23] LABS: Band Neutrophils % (manual) 7; Lymphocytes % (manual) 12 (10.0-50.0); Monocytes % (manual) 12 (0-12); Myelocytes % 3
[2021-01-24 11:25] LABS: Albumin 1.2 g/dL (3.4-5.0)
[2021-01-24] MEDS ORDERED: LACTULOSE 20Gm/30ML SOLN PO PRN (11:45)
[2021-01-24] MEDS: VASOPRESSIN 50 UNITS in D5W 5% 247.5 ML IV SCH (14:37)
[2021-01-24] MEDS: EPINEPHrine HCL 250 ML IV SCH (14:37)
[2021-01-24] MEDS: KETOCONAZOLE 2 % TOPICAL CREAM 15GM TOP SCH ×2 (17:32→21:52)
[2021-01-24] MEDS: fentaNYL Drip 2500mCg/250mlNS 250 ML IV SCH (17:34)
[2021-01-24] MEDS: MICAFUNGIN SODIUM 100 MG in SODIUM CHL 0.9% 100 ML IV SCH (18:32)
[2021-01-24] MEDS: INSULIN LANTUS (GLARGINE) 1 /0.01ml (100units/ml) SC SCH (22:00)
[2021-01-25] VITALS (83 sets, daily range): BP systolic 66–134; BP diastolic 12–85
[2021-01-25] MEDS: PHENYLEPHRINE IV 250 ML IV SCH ×5 (00:03→14:34)
[2021-01-25] MEDS: ACCU-CHEK COMFORT CURVE STRIP VI SCH ×4 (00:08→18:00)
[2021-01-25] MEDS: InsuLIN REG 1unit/0.01ml Soln (100units/ml) SC SCH ×4 (00:09→18:39)
[2021-01-25] MEDS: MIDAZOLAM DRIP 50 mg/50mL 50 ML IV SCH ×4 (00:33→13:24)
[2021-01-25] MEDS: fentaNYL Drip 2500mCg/250mlNS 250 ML IV SCH ×2 (01:35→13:26)
[2021-01-25] MEDS: MEROPENEM 1GM IVPB 100 ML IV SCH ×2 (03:13→12:44)
[2021-01-25] MEDS: NOREPINEPHRINE 8 MG/250ML KIT 250 ML IV SCH ×2 (03:52→04:00)
[2021-01-25 04:19] LABS: Hematocrit 41.8 % (41.0-53.0); Mean Corpuscular Hemoglobin 25.9 pg (28.0-32.0); Mean Corpuscular Hgb Conc. 31.1 g/dL (32.0-36.0); Mean Corpuscular Volume 83.5 fL (80.0-100.0); Red Blood Cells 5.01 10^6/uL (4.5-5.90); Red Cell Distribution Width 18.9 % (11.8-14.3)
[2021-01-25 04:47] LABS: BUN/Creatinine Ratio 14.2; Bilirubin, Total 5.3 mg/dL (0.2-1.0); Calcium 7.3 mg/dL (8.5-10.1)
[2021-01-25 05:09] LABS: Albumin 1.3 g/dL (3.4-5.0)
[2021-01-25 05:29] LABS: Potassium 7.3 mmol/L (3.5-5.1); White Blood Cell 33.2 10^3/uL (4.4-10.8)
[2021-01-25 05:31] LABS: Basophils % (manual) 0 (0.0-2.0); Blast Cells 0; Eosinophils % (manual) 0 (0-7); Promyelocytes % 0; Reactive Lymphocytes 0
[2021-01-25] MEDS ORDERED: CALCIUM GLUC 1,000mg/50ml-NS 50 ML IV ONE (06:00)
[2021-01-25] MEDS ORDERED: DEXTROSE (50%) 50ML SYRG IV ONE (06:00)
[2021-01-25] MEDS ORDERED: SODIUM BICARBONATE 8.4 % INJ 50ML VIAL IV ONE (06:00)
[2021-01-25] MEDS ORDERED: InsuLIN REG 1unit/0.01ml Soln (100units/ml) IV ONE (06:00)
[2021-01-25] MEDS ORDERED: ALBUTEROL SULF 2.5 MG/0.5ML(0.5%) NEB SOLN NEB ONE (06:30)
[2021-01-25] MEDS: ALBUTEROL SULF 2.5 MG/0.5ML(0.5%) NEB SOLN NEB PRN ×2 (06:34→18:22)
[2021-01-25] MEDS: IPRATROPIUM BROM 0.5 MG/2.5ML INH SOL NEB PRN ×2 (06:34→18:22)
[2021-01-25] MEDS ORDERED: SODIUM CHL 0.9% 1000 ML BAG XX ONE (09:30)
[2021-01-25] MEDS: DOCUSATE ORAL LIQUID 100 MG/10 ML UD GT SCH (09:39)
[2021-01-25] MEDS: PANTOPRAZOLE 40 MG/10 ML VIAL INJ IV SCH (09:40)
[2021-01-25] MEDS: LINEZOLID 600MG/300ML 300 ML IV SCH (09:40)
[2021-01-25] MEDS: ENOXAPARIN SOD 80 MG/0.8ML SYRINGE SC SCH (09:41)
[2021-01-25] MEDS: POLYETHYLENE GLYCOL 17 GM PWDR PO SCH (10:50)
[2021-01-25] MEDS: KETOCONAZOLE 2 % TOPICAL CREAM 15GM TOP SCH (10:51)
[2021-01-25] MEDS: VASOPRESSIN 50 UNITS in D5W 5% 247.5 ML IV SCH (11:28)
[2021-01-25] MEDS: PROPOFOL 100 ML IV SCH (11:28)
[2021-01-25] MEDS: EPINEPHrine HCL 250 ML IV SCH (12:42)
[2021-01-25 12:58] LABS: Band Neutrophils % (manual) 7; Lymphocytes % (manual) 3 (10.0-50.0); Metamyelocytes % 2; Monocytes % (manual) 7 (0-12); Myelocytes % 1
[2021-01-25] MEDS: MICAFUNGIN SODIUM 100 MG in SODIUM CHL 0.9% 100 ML IV SCH (17:56)
[2021-01-25 18:11] LABS: BUN/Creatinine Ratio 11.8; Calcium 7.2 mg/dL (8.5-10.1)
[2021-01-25] MEDS ORDERED: EPINEPHrine HCL 250 ML IV ONE (19:45)
[2021-01-25 19:46] LABS: Potassium 6.6 mmol/L (3.5-5.1)
[2021-01-25] MEDS ORDERED: EPOETIN ALFA-EPBX 10,000 UNIT/1ML VIAL SC ONE (21:00)
[2021-01-26] MEDS ORDERED: EPINEPHrine HCL 1 MG/10 ML SYRG IV ONE (01:34)
== END 2021-01-26 01:35 | DRG 720 ==
LOC: ER 12:14 → EDBD 12:14 → TELE 19:17 → ICU WEST 01-07 20:28
PROVIDERS: ADMIT Family Medicine; ATTEND Internal Medicine
PROC: 5A1955Z Respiratory Ventilation, Greater than 96 Consecutive Hours (ICD-10-PCS; principal; 2021-01-06)
PROC: 0BH17EZ Insertion of Endotracheal Airway into Trachea, Via Natural or Artificial Opening (ICD-10-PCS; 2021-01-06)
PROC: 06HY33Z Insertion of Infusion Device into Lower Vein, Percutaneous Approach (ICD-10-PCS; 2021-01-06)
PROC: 0B968ZZ Drainage of Right Lower Lobe Bronchus, Via Natural or Artificial Opening Endoscopic (ICD-10-PCS; 2021-01-17)
PROC: 06HY33Z Insertion of Infusion Device into Lower Vein, Percutaneous Approach (ICD-10-PCS; 2021-01-24)
PROC: 5A1D70Z Performance of Urinary Filtration, Intermittent, Less than 6 Hours Per Day (ICD-10-PCS; 2021-01-24)
PROC: 5A12012 Performance of Cardiac Output, Single, Manual (ICD-10-PCS; 2021-01-25)
PROC: 5A1D70Z Performance of Urinary Filtration, Intermittent, Less than 6 Hours Per Day (ICD-10-PCS; 2021-01-25)
DX: A41.9 Sepsis, unspecified organism (principal); N17.0 Acute kidney failure with tubular necrosis; R65.21 Severe sepsis with septic shock; G93.41 Metabolic encephalopathy; J15.212 Pneumonia due to Methicillin resistant Staphylococcus aureus; J96.01 Acute respiratory failure with hypoxia; J96.02 Acute respiratory failure with hypercapnia; I13.0 Hypertensive heart and chronic kidney disease with heart failure and stage 1 through stage 4 chronic kidney disease, or unspecified chronic kidney disease; J44.0 Chronic obstructive pulmonary disease with (acute) lower respiratory infection; I50.9 Heart failure, unspecified; B35.3 Tinea pedis; J98.11 Atelectasis; L89.159 Pressure ulcer of sacral region, unspecified stage; I46.9 Cardiac arrest, cause unspecified; E87.2 Acidosis; E87.1 Hypo-osmolality and hyponatremia; E88.09 Other disorders of plasma-protein metabolism, not elsewhere classified; L97.919 Non-pressure chronic ulcer of unspecified part of right lower leg with unspecified severity; E11.65 Type 2 diabetes mellitus with hyperglycemia; E87.5 Hyperkalemia; E66.01 Morbid (severe) obesity due to excess calories; N18.9 Chronic kidney disease, unspecified; N39.0 Urinary tract infection, site not specified; S30.0XXA Contusion of lower back and pelvis, initial encounter; E87.6 Hypokalemia; Z68.43 Body mass index [BMI] 50.0-59.9, adult; Z99.11 Dependence on respirator [ventilator] status; Z20.822 Contact with and (suspected) exposure to COVID-19; F15.20 Other stimulant dependence, uncomplicated; W06.XXXA Fall from bed, initial encounter; Y93.89 Activity, other specified; Y92.092 Bedroom in other non-institutional residence as the place of occurrence of the external cause; Y99.8 Other external cause status; Z68.44 Body mass index [BMI] 60.0-69.9, adult; Z88.5 Allergy status to narcotic agent
CPT/HCPCS: 31500; 31622; 36415; 36556; 36600; 70450; 71045; 71250; 76775; 80048; 80051; 80053; 80202; 81001; 82570; 82805; 82962; 83036; 83605; 83735; 83880; 84100; 84132; 84156; 84300; 84443; 84484; 85007; 85025; 85027; 85610; 85730; 87040; 87070; 87077; 87086; 87186; 87205; 87426; 90715; 90935; 92950; 93005; 93306; 93970; 94002; 94003; 94640; 94644; 96361; 96365; 96366; 96367; 96368; 96375; 99291; C9113; G0378; J0131; J0153; J0171; J0696; J1100; J1642; J1815; J1956; J2185; J2248; J2250; J2704; J3480; J3490; J7060; P9047